=== PATIENT | female | born 1980 | race Caucasian/White ===

== ENCOUNTER 2020-05-10 10:00 | Emergency (ER) | payer OTHER, SELFPAY ==
--- NOTE | ~2020-05-10 | XR_ITS ---
EXAMINATION: XR ankle LT min 3V DATE: 05/10/2020 10:23 INDICATION: Anterolateral left ankle pain TECHNIQUE: Anteroposterior, oblique, mortise, and lateral views of the left ankle were obtained. COMPARISON: None. FINDINGS: . Alignment is normal. No fracture. Joint spaces are well maintained. No ankle joint effusion. The soft tissues are unremarkable. IMPRESSION: 1. . Negative left ankle radiographs. Reviewed, dictated and finalized at location A.
[2020-05-10 10:07] VITALS: BP 111/60; PULSE 61; RESP 18; TEMP 36.9; O2SAT 100
--- NOTE | 2020-05-10 10:16 | ED.LOWEXIN ---
HPI - Extremity Injury (Lower) General Chief Complaint: Extremity Injury, Lower Stated Complaint: left ankle injured Time Seen by Provider: 05/10/20 10:18 Source: patient and RN notes reviewed Mode of arrival: ambulatory Limitations: no limitations History of Present Illness HPI Narrative: This is a 39 years old female presented office for evaluation of left ankle injury since yesterday. Stated, her ankle got pinned between trailer truck. Complained of immediate pain and numbness in her toes however numbness has improved since this morning. Pain is worse with weight bearing. She has been elevated, ice and use an ankle brace since the injury. Admits to history of sprain her ankle very badly between 2077-3307 during training where she has to wear brace for 6months. Denies any other injury. Related Data Home Medications Medication Instructions Recorded Confirmed No Home Medications 05/10/20 05/10/20 Allergies Allergy/AdvReac Type Severity Reaction Status Date / Time cefdinir Allergy Intermediate Swelling Verified 05/10/20 10:14 Penicillins Allergy Intermediate Swelling Verified 05/10/20 10:14 vancomycin Allergy Intermediate Rash Verified 05/10/20 10:14 metronidazole AdvReac Intermediate Nausea and Verified 05/10/20 10:14 Vomiting contrast mri dye Allergy Intermediate Rash Uncoded 05/10/20 10:14 Review of Systems Review of Systems: Narrative: CONSTITUTIONAL: Denies feeling ill CARDIOVASCULAR: Denies chest pain, palpitation RESPIRATORY: Denies dyspnea, cough GASTROINTESTINAL: Denies abdominal pain, nausea, vomiting SKIN: Denies rash MUSCULOSKELETAL:Reports left ankle pain, swelling NEUROLOGIC: Denies lightheaded All other systems reviewed are negative, except as documented in HPI. [facility] Past Medical History Medical History Bronchitis History of facial fracture Migraines Seasonal allergies Sinusitis Surgical History Surgical History H/O arthroscopy of left knee H/O sinus surgery History of carpal tunnel release History of laparoscopy Social History Social History Smoking status: Never smoker Gender identity (if verbalized by the patient): Female Comments At time of signature, I agree with nursing past medical, surgical, social and family history. There is no relevant family history pertinent to the presenting complaint. Exam Narrative: Exam Narrative: GENERAL: This is a well-nourished, well-developed patient, in no apparent distress. CARDIOVASCULAR: Regular rate and rhythm without murmurs, gallops, or rubs. RESPIRATORY: Clear to auscultation. Breath sounds equal bilaterally. No wheezes, rales, or rhonchi. GASTROINTESTINAL: Abdomen soft, non-tender, nondistended. Bowel sounds are active. No hepato-splenomegaly, or palpable masses. No guarding. SKIN: warm, intact with no suspicious lesions or rash, good texture and turgor. NEURO: awake, alert, and oriented to person, place and time. There were no obvious focal neurologic abnormalities. EXTREMITIES: The ankle is swollen and tender over the lateral aspect but the skin is intact and there is no ligamentous instability. There is no deformity. The foot and toes are warm and well-perfused. Sensation to pain and light touch is intact. Course Vital Signs Vital signs: Vital Signs Temperature 98.5 F 05/10/20 10:07 Pulse Rate 61 05/10/20 10:07 Respiratory Rate 18 05/10/20 10:07 Blood Pressure 111/60 05/10/20 10:07 Pulse Oximetry 100 05/10/20 10:07 Temperature 98.5 F 05/10/20 10:07 Pulse Rate 61 05/10/20 10:07 Respiratory Rate 18 05/10/20 10:07 Blood Pressure 111/60 05/10/20 10:07 Pulse Oximetry 100 05/10/20 10:07 MDM - Extremity Injury (Lower) MDM Narrative Medical decision making narrative: Discharge instructions reviewed with patient, as
== END 2020-05-10 10:43 | disposition home or self-care (01) ==
PROVIDERS: Emergency Provider Nurse Practitioner; PCP Internal Medicine
DX: S93.402A Sprain of unspecified ligament of left ankle, initial encounter (principal); W23.0XXA Caught, crushed, jammed, or pinched between moving objects, initial encounter
CPT/HCPCS: 73610; 99213; G0463

== ENCOUNTER 2020-07-23 07:34 | Outpatient (CLI) | payer OTHER, SELFPAY ==
--- NOTE | ~2020-07-23 | XR_ITS ---
XR ankle LT min 3V DATE: 07/23/2020 07:55 INDICATION: Left ankle and foot pain TECHNIQUE: 3 weightbearing views of left ankle COMPARISON: None FINDINGS: No fracture or dislocation of the ankle or disruption of the ankle mortise is detected. No periosteal reaction or bone destruction. IMPRESSION: Negative left ankle Reviewed, dictated and finalized at location A. IMPRESSION: Negative left ankle
== END 2020-07-23 07:35 | disposition home or self-care (01) ==
LOC: CHSIMG 07:37
PROVIDERS: PCP Internal Medicine; Visit Provider Orthopaedic Surgery
DX: M25.572 Pain in left ankle and joints of left foot (principal)
CPT/HCPCS: 73610

== ENCOUNTER 2021-06-21 08:03 | Emergency (ER) | payer OTHER, SELFPAY ==
[2021-06-21 08:09] VITALS: BP 121/83; PULSE 60; RESP 18; TEMP 37.8; O2SAT 100
--- NOTE | 2021-06-21 08:17 | ED.WOUNDLAC ---
HPI - Wound/Laceration General Chief Complaint: Skin/Abscess/Foreign Body Stated Complaint: right hand finger infection Time Seen by Provider: 06/21/21 08:18 Source: patient Mode of arrival: ambulatory History of Present Illness HPI narrative: PATIENT PRESENTS WITH REDNESS AND TENDERNESS TO INCISION SITE TO RIGHT HAND. PATIENT HAS HAD MULTIPLE SURGERIES TO HAND. THE LAST SURGERY WAS IN DECEMBER. PATIENT STATES SHE HAD A RECENT SURGERY TO RIGHT MIDDLE FINGER AND IS CURRENTLY IN PHYSICAL THERAPY FOR HER HAND. PATIENT STATES SHE NOTICE THE REDNESS 4 DAYS AGO AND IT HAS GOTTEN WORSE OVER THE LAST FEW DAYS. NO DRAINAGE. PATIENT HAS ATTEMPTED TO CONTACT HER SURGEON AND IS AWAITING A RETURN CALL FROM HIS OFFICE. PATIENT PRESENTS TO [facility] FOR AN ANTIBIOTIC. Related Data Home Medications Medication Instructions Recorded Confirmed cetirizine 10 mg tablet 10 mg PO DAILY 07/23/20 06/21/21 cholecalciferol (vitamin D3) 25 25 mcg PO DAILY 07/23/20 06/21/21 mcg (1,000 unit) capsule topiramate 25 mg tablet 25 mg PO DAILY 07/23/20 06/21/21 verapamil 40 mg tablet 40 mg PO DAILY 07/23/20 06/21/21 vit A 7,160 unit-vit C 113 mg-vit tablet PO DAILY tablet 07/23/20 E 100 esdk-[id number]-wynrsx tablet hydrocodone-acetaminophen 06/21/21 06/21/21 ibuprofen 800 mg PO TID 06/21/21 06/21/21 Allergies Allergy/AdvReac Type Severity Reaction Status Date / Time cefdinir Allergy Intermediate Swelling Verified 06/21/21 08:20 Penicillins Allergy Intermediate Swelling Verified 06/21/21 08:20 vancomycin Allergy Intermediate Rash Verified 06/21/21 08:20 gadobenic acid Allergy Rash Verified 06/21/21 08:21 [From contrast - MRI] metronidazole AdvReac Intermediate Nausea and Verified 06/21/21 08:20 Vomiting Review of Systems Review of Systems: CONSTITUTIONAL: Denies fever, chills, or sweats. EYES: Denies visual changes, redness, or discharge. ENT: Denies rhinorrhea, congestion, sore throat, or otalgia. CARDIOVASCULAR: Denies chest pain, palpitations, or edema. RESPIRATORY: Denies cough or dyspnea. GASTROINTESTINAL: Denies abdominal pain, nausea, vomiting, or diarrhea. GENITOURINARY: Denies dysuria or hematuria. SKIN: Denies rash or itching. MUSCULOSKELETAL: Denies back pain, joint pain, or myalgia. NEUROLOGIC: Denies headache, numbness, or weakness. PSYCHIATRIC: Denies anxiety or depression. [facility] Past Medical History Medical History (Updated 06/21/21 @ 08:29 by JAZZY Perez) Bleeding nose Bronchitis Contusion of ankle, left Disorder of superficial peroneal nerve Dizziness History of facial fracture Migraines Seasonal allergies Sinusitis Sleep apnea Vision abnormalities Surgical History Surgical History (Updated 07/24/20 @ 08:24 by Liseth Cowan, RT(R)) H/O arthroscopy of left knee H/O sinus surgery History of carpal tunnel release History of hip surgery labrum repair History of laparoscopy History of rhinoplasty History of wisdom tooth extraction Family History Family History (Updated 07/24/20 @ 08:25 by Liseth Cowan RT(R)) Other Arthritis Diabetes mellitus Malignant neoplasm Social History Social History Smoking status: Never smoker Gender identity (if verbalized by the patient): Female Comments At time of signature, agree with nursing past medical, surgical, social and family history. There is no relevant family history pertinent to the presenting complaint Critical dx considered and discussed with pt. Educated patient on red flag s/s and to go to ED if s/s occur. Discussed with pt when to return to [facility] or primary care provider. Pt gave verbal undertstanding, all questions were answered, and pt was agreeable to plan Exam Narrative: GENERAL: Well-appearing, well-nourished, and in no acute distress. HEAD: Normocephalic, atraumatic. EYES: PERRLA and EOMI. ENT: Nares clear, no rhinorrhea or epistaxis. Mucous me
== END 2021-06-21 08:36 | disposition home or self-care (01) ==
PROVIDERS: Emergency Provider Nurse Practitioner Family
DX: T81.41XA Infection following a procedure, superficial incisional surgical site, initial encounter (principal); L03.011 Cellulitis of right finger; G47.30 Sleep apnea, unspecified
CPT/HCPCS: 99213; G0463

== ENCOUNTER 2021-08-09 01:42 | Day surgery (SDC) | payer OTHER, SELFPAY ==
[2021-08-01 08:35] VITALS: BMI 25.4
[2021-08-09] VITALS (9 sets, daily range): BP systolic 103–121; BP diastolic 67–76; PULSE 49–83; RESP 12–20; TEMP 36.1–36.6; O2SAT 97–100
--- NOTE | 2021-08-09 07:33 | WPDHPUPDATE1 ---
History and Physical Update Update Date/Time: 08/09/21 07:33 History and Physical has been reviewed, including an updated exam of the patient. There are NO changes in the patient's condition. Risks, benefits, and alternatives have been discussed and questions answered. Patient agrees to proceed with procedure.
[2021-08-09] MEDS: ACETAMINOPHEN 500 MG TABLET 1000 MG PO (08:14)
[2021-08-09] MEDS: KETOROLAC 15 MG/ML VIAL (*BKC) IV PUSH (08:14)
--- NOTE | 2021-08-09 08:30 | P.OP_ITS ---
Procedure Note - Detailed Date of Procedure 08/09/21 Pre-op Diagnosis Menorrhagia, Serilization, Vaginal Discharge Post-op Diagnosis same Procedure Performed Laparoscopic bilateral salpingectomy with endometrial ablation with hysteroscopy D&C. Resection/Ablation-Cauterization of Cervical Ectropion Surgeon Micha Potts MD Anesthesia general Indications Menorrhagia, female sterilization, Mucousy vaginal discharge and cervical ectropion. Description of Procedure Patient was taken the operating room. She has prepped draped in the dorsal lithotomy position after induction of general anesthesia. A 5 mm abdominal incision was made in left upper quadrant of the abdomen with scalpel. A 5 mm trocars inserted the intra-abdominal cavity under direct visualization of the scope. Pneumoperitoneum was achieved. A 5 mm periumbilical incision was made using a scalpel on the abdominal scan. A 5 mm trocar was inserted the intra- abdominal cavity under visualization of the scope. A 5 mm incision made left lower quadrant of the abdomen. A 5 mm trocar was inserted the intra-abdominal cavity and direct visualization of the scope. The bilateral fallopian tubes were removed. The paratubal tissue in the area of the uterus was grasped with the LigaSure cautery and transected after being cauterized. The paratubal tissue from the ovary to the uterine cornu was cauterized and transected with LigaSure cautery. This was all done in a bilateral fashion. The tube was transected at the area of the uterine cornua and the tubes was removed through the 5 mm trocar site. The pneumoperitoneum was reduced. The trocars were removed. The skin was closed with subcuticular 4 Monocryl and covered with Dermabond. Our attention was then turned to the endometrial ablation portion of the procedure. A speculum was placed in the vagina. The cervix was grasped with a tenaculum. The cervix was dilated to approximately 8 mm with Johnson dilators. The hysteroscope was inserted. And the below findings were noted. All of the intrauterine surfaces were curettaged with a medium-size curette and the specimens were collected. Measurements of the cervix were taken using the uterine sound and the hysteroscope. The intrauterine cavity measurements were entered into the handpiece. The device was inserted into the intrauterine cavity and the array was expanded. The balloon cuff was inflated. When an adequate seal was formed the safety and energy cycles were initiated and completed. The array was collapsed, the balloon was deflated. The insert was withdrawn. The hysteroscope was reinserted and a well desiccated intrauterine cavity was observed. Excision and cauterization of cervix was performed - large loop electrode was used to excise ectropion. A large concave defect was created in the central portion of the cervix using multiple passes of the loop. The cut surface was then cauterized completely with ball cautery. Monsel was applied. The cervix was injected with lidocaine prior to starting the procedure. The patient was taken recovery room stable condition. Sponge lap and needle counts were correct x2. She tolerated the procedure well. Pathology yes Complications No immediate complications Condition stable Disposition PACU
--- NOTE | 2021-08-09 09:07 | P.PNAN_ITS ---
Anes - Initial Pre Proc Eval Procedure: Operation Date: 08/09/21 09:00 Proposed Procedures p Hysteroscopy with Sarah Endometrial Ablation, Bilateral Laparoscopic Salpingectomy - Micha Potts MD s Cervix Cautery - Micha Potts MD Date/Time: 08/09/21 09:07 Surgeon: Micha Potts MD Pre Op Diagnosis: Menorrhagia, Serilization, Vaginal Discharge Patient Data Age: 40 Gender: F Height: 1.55 m Weight: 64.9 kg Allergies Allergy/AdvReac Type Severity Reaction Status Date / Time cefdinir Allergy Intermediate Swelling Verified 08/09/21 08:17 Penicillins Allergy Intermediate Swelling Verified 08/09/21 08:17 vancomycin Allergy Intermediate Rash Verified 08/09/21 08:17 gadobenic acid Allergy Rash Verified 08/09/21 08:17 [From contrast - MRI] metronidazole AdvReac Intermediate Nausea and Verified 08/09/21 08:17 Vomiting Home Medications Medication Instructions Recorded Confirmed Type cetirizine 10 mg tablet 10 mg PO HS 07/23/20 08/09/21 History cholecalciferol (vitamin D3) 25 25 mcg PO HS 07/23/20 08/09/21 History mcg (1,000 unit) capsule topiramate 25 mg tablet 25 mg PO HS PRN 07/23/20 08/09/21 History verapamil 40 mg tablet 40 mg PO HS PRN 07/23/20 08/09/21 History Patient hx anesthesia problems: post op nausea/vomiting Family hx anesthesia problems: none Results Review: All pre-operative results and documents have been reviewed as p art of the pre-operative evaluation. [facility], [facility] Past Medical History Medical History (Updated 08/09/21 @ 09:08 by Miles Sevilla MD) Bleeding nose Bronchitis Contusion of ankle, left Disorder of superficial peroneal nerve Dizziness History of facial fracture Migraines Seasonal allergies Sinusitis Sleep apnea TIA (transient ischemic attack) Vision abnormalities Surgical History Surgical History H/O arthroscopy of left knee H/O sinus surgery History of carpal tunnel release History of hip surgery labrum repair History of laparoscopy History of rhinoplasty History of wisdom tooth extraction Family History Family History Other Arthritis Diabetes mellitus Malignant neoplasm Social History Social History Smoking status: Never smoker Alcohol intake: never Substance use: never Substance use type: does not use Living arrangements: with family Gender identity (if verbalized by the patient): Female Spiritual care concerns: No Anes - Eval Final PreProcedure Day of Procedure 08/09/21 09:07 Patient weight: overweight Heart: regular rate and rhythm Lungs: clear to auscultation Airway: Mallampati scale class II Neurological: alert and oriented Last oral intake: >/= 8 hours ASA classification: III Emergent: no Anesthetic plan: proceed Anesthesia type and monitoring: general ETT and standard monitoring Results Review: All pre-operative results and documents have been reviewed as part of the pre-operative evaluation. Informed Consent: The patient's anesthetic plan and its attendant risks and benefits were discussed with the patient/family/POA. Questions were solicited and answers provided to the satisfaction of the patient/fami
--- NOTE | 2021-08-09 09:31 | SUR.PREOP ---
patient updated on time delay
[2021-08-09] MEDS: LACTATED RINGERS 1,000 ML 30 ML IV CONT ×2 (09:36→10:54)
[2021-08-09] MEDS: SCOPOLAMINE 1.5 MG PATCH TRANSDERM (09:36)
[2021-08-09] MEDS: FERRIC SUBSULFATE 8 ML SOLUTION WITH APPLICATOR TOPICAL (10:40)
[2021-08-09] MEDS: LIDO 1%/EPINEPHRINE 1:100,000 50 ML VIAL 10 ML INFILTRATE (10:52)
== END 2021-08-09 12:40 | disposition home or self-care (01) ==
PROVIDERS: PCP Internal Medicine; Visit Provider Obstetrics & Gynecology
PROC: 0UDB8ZZ Extraction of Endometrium, Via Natural or Artificial Opening Endoscopic (ICD-10-PCS; CPT 58558; principal; 2021-08-09 09:00)
PROC: 0UBC7ZZ Excision of Cervix, Via Natural or Artificial Opening (ICD-10-PCS; CPT 57522; 2021-08-09 09:00)
DX: Z30.2 Encounter for sterilization (principal); N72 Inflammatory disease of cervix uteri; N88.8 Other specified noninflammatory disorders of cervix uteri; N92.0 Excessive and frequent menstruation with regular cycle; N89.8 Other specified noninflammatory disorders of vagina; G47.30 Sleep apnea, unspecified; Z86.73 Personal history of transient ischemic attack (TIA), and cerebral infarction without residual deficits
CPT/HCPCS: 58563; 58661; 57500; 88302; 88305; 88307; A9270; J1170; J1885; J2250; J3010; J7030; J7120

== ENCOUNTER 2022-03-19 16:07 | Outpatient (CLI) | payer OTHER, SELFPAY ==
--- NOTE | ~2022-03-19 | XR_ITS ---
XR wrist RT min 3V DATE: 03/19/2022 16:40 INDICATION: Bilateral wrist and hand swelling, greater on the right TECHNIQUE: 4 views of right wrist COMPARISON: None FINDINGS: No fracture or dislocation, periosteal reaction or bone destruction, joint space narrowing, erosive change or chondrocalcinosis. IMPRESSION: Negative Reviewed, dictated and finalized at location B. IMPRESSION: Negative
--- NOTE | ~2022-03-19 | XR_ITS ---
XR hand RT min 3V DATE: 03/19/2022 16:41 INDICATION: Bilateral wrist and hand pain TECHNIQUE: 3 views COMPARISON: None FINDINGS: No fracture or dislocation, periosteal reaction or bone destruction, erosive change or robert drocalcinosis. Joint spaces are preserved. IMPRESSION: Negative Reviewed, dictated and finalized at location B. IMPRESSION: Negative
--- NOTE | ~2022-03-19 | XR_ITS ---
XR wrist LT min 3V DATE: 03/19/2022 16:41 INDICATION: Bilateral wrist and hand pain and swelling TECHNIQUE: 4 views COMPARISON: None FINDINGS: No fracture or dislocation, periosteal reaction or bone destruction, erosive change or robert drocalcinosis. Joint spaces are preserved. IMPRESSION: Negative Reviewed, dictated and finalized at location B. IMPRESSION: Negative
--- NOTE | ~2022-03-19 | XR_ITS ---
XR hand LT min 3V DATE: 03/19/2022 16:41 INDICATION: Bilateral wrist and hand pain TECHNIQUE: 3 views COMPARISON: None FINDINGS: No fracture or dislocation, periosteal reaction or bone destruction, erosive change or robert drocalcinosis. IMPRESSION: Negative Reviewed, dictated and finalized at location B. IMPRESSION: Negative
[2022-03-19 16:26] LABS: Basophils Absolute Auto 0.04 K/mm3 (0.00-0.10); Basophils Percent Auto 0.6 % (0.0-1.0); Eosinophils Absolute Auto 0.16 K/mm3 (0.02-0.50); Eosinophils Percent Auto 2.6 % (1.0-6.0); Hematocrit 37.6 % (35.0-49.0); Hemoglobin 12.7 g/dL (12.0-15.0); Immature Granulocyte Absolute 0.02 K/mm3 (0.00-0.00); Immature Granulocyte Percent A 0.3 % (0.0-0.0); Lymphocytes Absolute Auto 2.05 K/mm3 (1.10-4.50); Lymphocytes Percent Auto 33.3 % (18.0-42.0); Mean Corpuscular HGB Conc 33.8 g/dL (32.0-36.0); Mean Corpuscular Hemoglobin 31.5 pg (27.0-31.0); Mean Corpuscular Volume 93.3 fL (78.0-102.0); Mean Platelet Volume 10.9 fl (9.2-11.8); Monocytes Absolute Auto 0.71 K/mm3 (0.10-0.90); Monocytes Percent Auto 11.5 % (2.0-11.0); Neutrophils Absolute Auto 3.2 K/mm3 (1.7-7.2); Neutrophils Percent Auto 51.7 % (50.0-70.0); Platelet Count Result 280 K/mm3 (150-420); Red Blood Count 4.03 M/mm3 (4.20-5.40); Red Cell Distribution Width 12.4 % (11.6-14.4); White Blood Count 6.2 K/mm3 (4.8-10.8)
[2022-03-19 16:38] LABS: Rheumatoid Factor Screen Negative (Negative)
[2022-03-19 17:02] LABS: Alanine Aminotransferase 23 U/L (14-59); Albumin Level 3.6 g/dL (3.4-5.0); Alkaline Phosphatase 53 U/L (46-116); Anion Gap 7 mmol/L (8-16); Aspartate Amino Transferase 18 U/L (15-37); Bilirubin,Total 0.3 mg/dL (0.00-1.00); Blood Urea Nitrogen 11 mg/dL (7-18); Calcium 8.4 mg/dL (8.5-10.1); Carbon Dioxide 25 mmol/L (21-32); Chloride 106 mmol/L (98-108); Estimated Glomerular Filt Rate > 60; Free T3 2.36 pg/mL (2.18-3.98); Free T4 Free Thyroxine 0.93 ng/dL (0.76-1.46); Glucose 76 mg/dL (70-99); Osmolality Calculated 284 mOsm/kg (285-295); Potassium 3.7 mmol/L (3.5-5.1); Sodium 138 mmol/L (136-145); Thyroid Stimulating Hormone 0.89 uIU/mL (0.36-3.74); Total Protein 6.6 g/dL (6.4-8.2); Vitamin B12 519 pg/mL (193-986)
[2022-03-19 17:08] LABS: CRP < 0.2 mg/dL (0.0-0.9)
[2022-03-19 17:21] LABS: Erythrocyte Sedimentation Rate 5 mm/hr (0-15)
[2022-03-24 07:41] LABS: Lyme Disease Ab (IgM), Blot Negative (Negative); Lyme Disease Ab(IgG), Blot Negative (Negative)
[2022-03-24 12:33] LABS: Anti Cyclic Citrullinated Pept <16 Units (<20)
== END 2022-03-19 16:08 | disposition home or self-care (01) ==
LOC: CHSLAB 16:08
PROVIDERS: PCP Internal Medicine; Visit Provider Internal Medicine
DX: M25.532 Pain in left wrist (principal); M25.531 Pain in right wrist; M79.642 Pain in left hand; M79.641 Pain in right hand; M79.89 Other specified soft tissue disorders; G62.9 Polyneuropathy, unspecified
CPT/HCPCS: 36415; 73110; 73130; 80053; 82607; 84439; 84443; 84481; 85025; 85652; 86038; 86140; 86200; 86430; 86617

== ENCOUNTER 2022-05-06 14:25 | Outpatient (CLI) | payer OTHER, SELFPAY ==
[2022-05-06 14:35] LABS: Hematocrit 40.7 % (35.0-49.0); Hemoglobin 13.4 g/dL (12.0-15.0); Mean Corpuscular HGB Conc 32.9 g/dL (32.0-36.0); Mean Corpuscular Hemoglobin 30.6 pg (27.0-31.0); Mean Corpuscular Volume 92.9 fL (78.0-102.0); Mean Platelet Volume 10.6 fl (9.2-11.8); Platelet Count Result 258 K/mm3 (150-420); Red Blood Count 4.38 M/mm3 (4.20-5.40); Red Cell Distribution Width 12.5 % (11.6-14.4); White Blood Count 11.7 K/mm3 (4.8-10.8)
[2022-05-06 15:04] LABS: Alanine Aminotransferase 20 U/L (14-59); Albumin Level 3.4 g/dL (3.4-5.0); Alkaline Phosphatase 73 U/L (46-116); Anion Gap 7 mmol/L (8-16); Aspartate Amino Transferase 15 U/L (15-37); Bilirubin,Total 0.4 mg/dL (0.00-1.00); Blood Urea Nitrogen 10 mg/dL (7-18); Calcium 8.4 mg/dL (8.5-10.1); Carbon Dioxide 29 mmol/L (21-32); Chloride 106 mmol/L (98-108); Estimated Glomerular Filt Rate > 60; Glucose 91 mg/dL (70-99); Osmolality Calculated 293 mOsm/kg (285-295); Potassium 3.8 mmol/L (3.5-5.1); Sodium 142 mmol/L (136-145); Total Protein 6.3 g/dL (6.4-8.2)
[2022-05-06 15:15] LABS: Total Cells Counted 100
[2022-05-06 15:16] LABS: Band Neutrophils Percent 0 % (0-6); Basophils Percent Manual 0 % (0-1); Eosinophils Absolute Manual 5.26 K/mm3 (0.02-0.5); Eosinophils Percent Manual 45 % (1-6); Lymphocytes Absolute Manual 2.92 K/mm3 (1.1-4.5); Lymphocytes Percent Manual 25 % (18-44); Monocytes Absolute Manual 0.81 K/mm3 (0.1-0.90); Monocytes Percent Manual 7 % (3-9); Neutrophils Absolute Manual 2.69 K/mm3 (1.7-7.2); Neutrophils Percent Manual 23 % (46-73); Platelet Estimate Adequate (Adequate)
== END 2022-05-06 14:26 | disposition home or self-care (01) ==
PROVIDERS: PCP Internal Medicine; Visit Provider Internal Medicine
DX: R19.7 Diarrhea, unspecified (principal)
CPT/HCPCS: 36415; 80053; 85025; 86609; 87045; 87177; 87209; 87324; 87427

== ENCOUNTER 2022-06-11 05:51 | Day surgery (SDC) | payer OTHER, SELFPAY ==
[2022-05-23 08:54] VITALS: BMI 27.1
--- NOTE | 2022-06-10 14:06 | WPDANESEPPF ---
Anes - Initial Pre Proc Eval Procedure: Operation Date: 06/11/22 07:30 Proposed Procedures p Esophagogastroduodenoscopy - Fred Macias DO s Diagnostic Colonoscopy - Fred Macias DO Date/Time: 06/10/22 14:06 Surgeon: Fred Macias DO Pre Op Diagnosis: Melena, Epigastric Pain and Colitis Patient Data Age: 41 Gender: F Height: 1.55 m Weight: 65 kg Allergies Allergy/AdvReac Type Severity Reaction Status Date / Time cefdinir Allergy Intermediate Swelling Verified 05/23/22 08:52 Penicillins Allergy Intermediate Swelling Verified 05/23/22 08:52 vancomycin Allergy Intermediate Rash Verified 05/23/22 08:52 gadobenic acid Allergy Unresponsiv Verified 06/11/22 06:38 [From contrast - MRI] e shellfish derived Allergy Unresponsiv Verified 06/11/22 06:38 e metronidazole AdvReac Intermediate Nausea and Verified 05/23/22 08:52 Vomiting Home Medications Medication Instructions Recorded Confirmed Type cetirizine 10 mg tablet (Zyrtec) 10 mg PO HS 07/23/20 06/11/22 History cholecalciferol (vitamin D3) 25 25 mcg PO HS 07/23/20 06/11/22 History mcg (1,000 unit) capsule topiramate 25 mg tablet (Topamax) 25 mg PO HS PRN Migraine Headache 07/23/20 06/11/22 History verapamil 40 mg tablet 40 mg PO HS PRN Migraine Headache 07/23/20 06/11/22 History pantoprazole 20 mg tablet,delayed 20 mg PO QAM 05/23/22 06/11/22 History release Patient hx anesthesia problems: none Family hx anesthesia problems: none Results Review: All pre-operative results and documents have been reviewed as part of the pre-operative evaluation. [facility] Past Medical History Medical History (System 05/22/22 @ 07:42 by Lucille Casas) Bleeding nose Bronchitis Contusion of ankle, left Disorder of superficial peroneal nerve Dizziness History of facial fracture Migraines Seasonal allergies Sinusitis Sleep apnea TIA (transient ischemic attack) Vision abnormalities Surgical History Surgical History H/O arthroscopy of left knee H/O sinus surgery History of carpal tunnel release History of hip surgery labrum repair History of laparoscopy History of rhinoplasty History of wisdom tooth extraction Family History Family History Other Arthritis Diabetes mellitus Malignant neoplasm Social History Social History (System 05/22/22 @ 07:42 by Lucille Casas) Smoking status: Never smoker Alcohol intake: never Substance use: never Substance use type: does not use Living arrangements: with family Gender identity (if verbalized by the patient): Female Spiritual care concerns: No Anes - Eval Final PreProcedure Day of Procedure 06/10/22 14:06 Patient weight: overweight Heart: regular rate and rhythm Lungs: clear to auscultation Airway: Mallampati scale class II Neurological: alert and oriented Last oral intake: >/= 8 hours ASA classification: III Emergent: no Anesthetic plan: proceed Anesthesia type and monitoring: general GIVS and standard monitoring Results Review: All pre-operative results and documents have been reviewed as part of the pre-operative evaluation. Informed Consent: The patient's anesthetic plan and its attendant risks and benefits were discussed with the patient/family/POA. Questions were solicited and answers provided to the satisfaction of the patient/family/POA.
[2022-06-11 06:19] VITALS: BMI 26.6
[2022-06-11 06:27] VITALS: BP 117/90; PULSE 60; RESP 14; TEMP 36.8; O2SAT 100
[2022-06-11] MEDS: LACTATED RINGERS 500 ML 30 ML IV CONT (07:02)
--- NOTE | 2022-06-11 07:14 | PM.IMHP ---
H&P: HPI History of Present Illness Date/Time: 06/11/22 07:14 Chief Complaint: Epigastric pain, colitis Narrative: 41 yo woman presented with epigastric pain for the past month and occasional diarrhea. She had an episode of severe diarrhea and has had issues off and on since. She also notices hematochezia at times. She has acid reflux at times. She has never had a colonoscopy or EGD before. Review of Systems Review of Systems: All systems reviewed & are unremarkable except as noted in HPI and below Constitutional: Constitutional: Denies chills, Denies fever(s), Denies headache(s) and Denies weight loss Eyes: Eyes: Denies change in vision ENT: Denies dizziness, Denies headache(s), Denies neck mass and Denies throat swelling Cardiovascular: Cardiovascular: Denies chest pain, Denies lightheadedness and Denies dyspnea Respiratory: Respiratory: Denies cough, Denies dyspnea and Denies wheezing Gastrointestinal: Gastrointestinal: Denies abdominal pain, Reports change in bowel habits, Reports heartburn, Denies nausea and Denies vomiting Genitourinary: Genitourinary: Denies hematuria and Denies dysuria Musculoskeletal: Musculoskeletal: Reports as per HPI Integumentary/Breasts: Skin/Breast: Reports as per HPI Neurologic: Denies dizziness and Denies headache(s) Allergic/Immunologic: Allergic/Immunologic: Denies throat swelling and Denies wheezing PMFSH Past Medical History Medical History Bleeding nose Bronchitis Contusion of ankle, left Disorder of superficial peroneal nerve Dizziness History of facial fracture Migraines Seasonal allergies Sinusitis Sleep apnea TIA (transient ischemic attack) Vision abnormalities Surgical History Surgical History H/O arthroscopy of left knee H/O sinus surgery History of carpal tunnel release History of hip surgery labrum repair History of laparoscopy History of rhinoplasty History of wisdom tooth extraction Family History Family History Other Arthritis Diabetes mellitus Malignant neoplasm Social History Social History Smoking status: Never smoker Alcohol intake: never Substance use: never Substance use type: does not use Living arrangements: with family Gender identity (if verbalized by the patient): Female Spiritual care concerns: No Meds Home Medications and Allergies Home Medications Medication Instructions Recorded Confirmed Type cetirizine 10 mg tablet (Zyrtec) 10 mg PO HS 07/23/20 06/11/22 History cholecalciferol (vitamin D3) 25 25 mcg PO HS 07/23/20 06/11/22 History mcg (1,000 unit) capsule topiramate 25 mg tablet (Topamax) 25 mg PO HS PRN Migraine Headache 07/23/20 06/11/22 History verapamil 40 mg tablet 40 mg PO HS PRN Migraine Headache 07/23/20 06/11/22 History pantoprazole 20 mg tablet,delayed 20 mg PO QAM 05/23/22 06/11/22 History release Allergies Allergy/AdvReac Type Severity Reaction Status Date / Time cefdinir Allergy Intermediate Swelling Verified 05/23/22 08:52 Penicillins Allergy Intermediate Swelling Verified 05/23/22 08:52 vancomycin Allergy Intermediate Rash Verified 05/23/22 08:52 gadobenic acid Allergy Unresponsiv Verified 06/11/22 06:38 [From contrast - MRI] e shellfish derived Allergy Unresponsiv Verified 06/11/22 06:38 e metronidazole AdvReac Intermediate Nausea and Verified 05/23/22 08:52 Vomiting Vital Signs Vital Signs - 24 hr 06/11/22 06:27 Temperature 36.8 C Pulse Rate 60 Respiratory Rate 14 Blood Pressure 117/90 Pulse Oximetry 100 Oxygen Delivery Room Air Exam Const: General: no acute distress and alert Orientation/consciousness: patient oriented x3 HENMT: Head: normocephalic and atraumatic Ears: hearing grossly normal bilaterall
[2022-06-11 08:04] VITALS: BP 101/71; PULSE 57; RESP 16; O2SAT 98
[2022-06-11 08:14] VITALS: BP 96/69; PULSE 53; RESP 14; O2SAT 98
[2022-06-11 08:24] VITALS: BP 102/72; PULSE 50; RESP 16; O2SAT 100
--- NOTE | 2022-06-11 09:14 | WPDANESPN ---
Anes - Prog Note Post-Op Date/Time: 06/11/22 09:14 Cardiovascular status: normal Respiratory status: normal Airway patency: baseline Mental status: baseline Post-Op hydration status: normal Vital Signs: Last Vital Signs Temp 36.8 C 06/11/22 06:27 Pulse 50 L 06/11/22 08:24 Resp 16 06/11/22 08:24 BP 102/72 06/11/22 08:24 Pulse Ox 100 06/11/22 08:24 O2 Del Method Room Air 06/11/22 08:24 Pain Score (VAS): 0 I/O: Intake & Output 06/10/22 06/11/22 06/11/22 23:59 07:59 15:59 Intake Total 600 Balance 600 Post-procedural complaints: none Patient Feedback: Patient satisfied with anesthetic care. Other Findings: Patient vital signs back to baseline. Patient denies nausea and vomiting. Patient's pain under control. Patient OK for discharge.
== END 2022-06-11 08:48 | disposition home or self-care (01) ==
PROVIDERS: PCP Internal Medicine; Visit Provider Surgery
PROC: 0DJ08ZZ Inspection of Upper Intestinal Tract, Via Natural or Artificial Opening Endoscopic (ICD-10-PCS; CPT 43235; principal; 2022-06-11 07:30)
PROC: 0DJD8ZZ Inspection of Lower Intestinal Tract, Via Natural or Artificial Opening Endoscopic (ICD-10-PCS; CPT 45378; 2022-06-11 07:30)
DX: R10.13 Epigastric pain (principal); K52.9 Noninfective gastroenteritis and colitis, unspecified
CPT/HCPCS: 45380; 43239

== ENCOUNTER 2022-06-11 15:19 | Outpatient (NON) | payer OTHER, SELFPAY | END 2022-06-11 15:20 | disposition home or self-care (01) | PROVIDERS: PCP Internal Medicine; Visit Provider Surgery | DX: R10.13 Epigastric pain (principal); K52.9 Noninfective gastroenteritis and colitis, unspecified | CPT/HCPCS: 88305 ==

== ENCOUNTER 2022-08-06 14:01 | Outpatient (CLI) | payer OTHER, SELFPAY ==
--- NOTE | ~2022-08-06 | CT_ITS ---
EXAMINATION: CT abdomen pelvis wo con DATE: 08/06/2022 16:08 INDICATION: Left lower quadrant pain TECHNIQUE: Computed tomography (CT) of the abdomen and pelvis was performed without intravenous contr ast. The dose-length product (DLP) was 368.55 mGy-cm. Automated exposure control and iterative recons truction technique were employed. COMPARISON: None FINDINGS: Minimal dependent atelectasis is present in the lung bases. The heart size is normal. The l iver, spleen, pancreas, gallbladder, and adrenal glands are normal. The kidneys are unremarkable. No pathologically enlarged abdominal or pelvic lymph nodes are identified. There is no free intraperiton eal gas or evidence of bowel obstruction. The appendix is normal. IMPRESSION: 1. No CT correlate for the patient's symptoms. Reviewed, dictated and finalized at location A.
[2022-08-06 14:16] LABS: Appearance Urine Clear (Clear); Basophils Absolute Auto 0.02 K/mm3 (0.00-0.10); Basophils Percent Auto 0.3 % (0.0-1.0); Bilirubin Urine Negative (Negative); Blood Urine Negative (Negative); Eosinophils Absolute Auto 0.34 K/mm3 (0.02-0.50); Glucose Urine UA Negative (Negative); Hematocrit 38.3 % (35.0-49.0); Hemoglobin 12.8 g/dL (12.0-15.0); Immature Granulocyte Absolute 0.02 K/mm3 (0.00-0.00); Immature Granulocyte Percent A 0.3 % (0.0-0.0); Ketones Urine Negative (Negative); Leukocyte Esterase Ur Negative LEU/UL (Negative); Lymphocytes Absolute Auto 1.97 K/mm3 (1.10-4.50); Lymphocytes Percent Auto 29.2 % (18.0-42.0); Mean Corpuscular HGB Conc 33.4 g/dL (32.0-36.0); Mean Corpuscular Hemoglobin 30.7 pg (27.0-31.0); Mean Corpuscular Volume 91.8 fL (78.0-102.0); Mean Platelet Volume 10.6 fl (9.2-11.8); Monocytes Absolute Auto 0.51 K/mm3 (0.10-0.90); Monocytes Percent Auto 7.6 % (2.0-11.0); Neutrophils Absolute Auto 3.9 K/mm3 (1.7-7.2); Neutrophils Percent Auto 57.6 % (50.0-70.0); Nitrate Urine Negative (Negative); Platelet Count Result 263 K/mm3 (150-420); Protein Urine Negative (Negative); Red Blood Count 4.17 M/mm3 (4.20-5.40); Red Cell Distribution Width 12.1 % (11.6-14.4); Specific Grav Ur 1.025 (1.010-1.020); Urobilinogen Urine 0.2 mg/dL (0.2-1.0); White Blood Count 6.8 K/mm3 (4.8-10.8); pH Urine 5.5 (5.0-8.0)
[2022-08-06 14:26] LABS: Add Urine Microscopic? NO; Color Urine Light Yellow (Yellow)
[2022-08-06 14:36] LABS: Alanine Aminotransferase 22 U/L (14-59); Albumin Level 3.7 g/dL (3.4-5.0); Alkaline Phosphatase 55 U/L (46-116); Anion Gap 5 mmol/L (8-16); Aspartate Amino Transferase 15 U/L (15-37); Bilirubin,Total 0.5 mg/dL (0.00-1.00); Blood Urea Nitrogen 10 mg/dL (7-18); Calcium 8.6 mg/dL (8.5-10.1); Carbon Dioxide 31 mmol/L (21-32); Chloride 107 mmol/L (98-108); Estimated Glomerular Filt Rate > 60; Glucose 94 mg/dL (70-99); Osmolality Calculated 295 mOsm/kg (285-295); Potassium 4.4 mmol/L (3.5-5.1); Sodium 143 mmol/L (136-145); Total Protein 6.8 g/dL (6.4-8.2)
== END 2022-08-06 14:02 | disposition home or self-care (01) ==
PROVIDERS: PCP Internal Medicine; Visit Provider Internal Medicine
DX: R10.32 Left lower quadrant pain (principal); R19.7 Diarrhea, unspecified
CPT/HCPCS: 36415; 74176; 80053; 81003; 85025

== ENCOUNTER 2022-08-07 12:20 | Outpatient (CLI) | payer OTHER, SELFPAY | END 2022-08-07 12:21 | disposition home or self-care (01) | LOC: CHSLAB 12:22 | PROVIDERS: PCP Internal Medicine; Visit Provider Internal Medicine | DX: R19.7 Diarrhea, unspecified (principal) | CPT/HCPCS: 87045; 87324; 87427 ==

== ENCOUNTER 2023-04-30 07:10 | Outpatient (CLI) | payer OTHER, SELFPAY ==
--- NOTE | ~2023-04-30 | MM_ITS ---
EXAMINATION: MM screening evy BI w jose eduardo HISTORY: Screening mammogram TECHNIQUE: Craniocaudal and mediolateral oblique 3-D tomosynthesis images were obtained and synthetic 2-D images were generated. CAD analysis was submitted and interpreted. COMPARISON: No prior mammogram is available for comparison at this institution. BREAST PARENCHYMAL COMPOSITION: The breasts are extremely dense, which lowers the sensitivity of mamm ography. FINDINGS: There is no evidence of suspicious mass, calcification, or architectural distortion to sugg est malignancy in either breast. There has been no suspicious interval change. IMPRESSION: 1. No mammographic evidence of malignancy. 2. Recommend routine screening mammography in one year. 3. Supplemental ultrasound screening may be of benefit in the setting of very dense fibroglandular [place]. BI-RADS Category 1: Negative Reviewed, dictated and finalized at location A. IMPRESSION: 1. No mammographic evidence of malignancy. 2. Recommend routine screening mammography in one year. 3. Supplemental ultrasound screening may be of benefit in the setting of very d ense fibroglandular stroma. BI-RADS Category 1: Negative
== END 2023-04-30 07:11 | disposition home or self-care (01) ==
LOC: CHSIMG 07:12
PROVIDERS: PCP Internal Medicine; Visit Provider Nurse Practitioner Family
DX: Z12.31 Encounter for screening mammogram for malignant neoplasm of breast (principal)
CPT/HCPCS: 77063; 77067

== ENCOUNTER 2024-01-22 07:16 | Outpatient (CLI) | payer OTHER, SELFPAY ==
--- NOTE | ~2024-01-22 | US_ITS ---
NAME: hCen Coats DATE OF : 84 EXAMINATION: US PELVIC COMPLETE W TV DATE: 01/22/2024 at 7:31 AM INDICATION: Pelvic pain. TECHNIQUE: Multiple transabdominal and transvaginal sonographic images of the pelvis were obtained. COMPARISON: CT abdomen and pelvis 08/06/2022 FINDINGS: TRANSABDOMINAL ULTRASOUND: The uterus measures 6.3 x 4.2 x 4.1 cm. There is no free fluid in the pelvis. TRANSVAGINAL ULTRASOUND: The endometrial complex measures 7 mm in thickness. The right ovary measures 2.9 x 3.3 x 2.2 cm. The left ovary measures 2.3 x 2.1 x 2.2 cm. There is normal vascular flow in the ovaries. IMPRESSION: 1. Normal pelvis. Reviewed, dictated and finalized at location A. IMPRESSION: 1. Normal pelvis.
== END 2024-01-22 07:17 | disposition home or self-care (01) ==
PROVIDERS: PCP Internal Medicine
DX: R10.2 Pelvic and perineal pain (principal)
CPT/HCPCS: 76830; 76856

== ENCOUNTER 2025-03-24 07:23 | Outpatient (CLI) | payer OTHER, SELFPAY ==
--- OUTSIDE RECORDS SUMMARY | 2025-03-24 07:26 | XMS_ITS | Referral Summary ---
Author Organization [facility] Address [address] [place] [address] Care Team Providers Care Grape Grower Name Role Phone Jonathan Alejandra MD Primary Care Provider [phone] Encounters Date Type Department Care Team Description 03/10/2025 8:40 AM CDT Therapy [facility] Otolaryngology [address] [place] [address] Advanced Medicine [address]th [place] [address] [place] [address] Calri Rivera SLP Lesion of vocal fold (Primary Dx); Dysphonia 03/10/2025 8:40 AM CDT Office Visit [facility] - [facility] ENT [address] [facility] Advanced [facility] 11th [place] [address] [place] [address] Brian Zamora MD Dysphonia 02/10/2025 [address] [facility] - [facility] ENT [address] [facility] 11th [place] [address] [place] [address] Valentina Reyes MS from Last 3 Months Allergies Active Allergy Reactions Criticality Noted Date Comments Cefdinir Shortness of breath,Swelling,Anap hylaxis High 07/18/2015 Iodinated Contrast Media Shortness of breath,Other (See comments) High 08/24/2021 blacked out Modafinil Nausea And Vomiting 12/09/2018 Rizatriptan Other (See comments) Low 11/19/2017 Unable to take Shellfish Containing Products Shortness of breath High 08/26/2011 Other reaction(s): Lightheadedness, Nausea, Lightheadedness, Nausea Sumatriptan Other (See comments) Low 11/19/2017 Unable to take Titanium Blisters,Redness High 02/15/2024 Vancomycin Rash Medium Medications topiramate (TOPAMAX) 100 mg tabletIndicatio ns:Migraine Prevention Take 1 tablet (100 mg total) by mouth 2 (two) times a day 8 Active cholecalciferol (VITAMIN D-3) 2,000 unit tabletIndicatio ns:Prevention of Vitamin D Deficiency Take 1 tablet (2,000 Units total) by mouth nightly Active multivitamin capsuleIndicati ons:Vitamin Deficiency Prevention Take 1 capsule by mouth every morning Active vit A/C/E ac/ZnOx/cupric oxide (EYE VITAMIN AND MINERALS ORAL)Indication s:supplement Take 1 tablet by mouth nightly Active cetirizine (ZyrTEC) 10 mg tabletIndicatio ns:Seasonal Allergic Rhinitis Take 1 tablet (10 mg total) by mouth 2 (two) times a day Active naproxen (ALEVE) 220 mg tabletIndicatio ns:Pain Take 1 tablet (220 mg total) by mouth as needed for pain Active fluticasone propionate (FLONASE) 50 mcg/actuation nasal sprayIndication s:Allergic Rhinitis Administer 1 spray into each nostril 2 (two) times a day 1 Active loperamide (IMODIUM) 2 mg capsule Take 1 capsule (2 mg total) by mouth 4 (four) times a day as needed for diarrhea 12 capsule 2 Active verapamil HCl (VERAPAMIL ORAL)Indication s:migraines Take 240 mg by mouth as needed (migraines) Active UNABLE TO FIND Inject 1 each under the skin every 30 (thirty) days Allergy shot Active famotidine (PEPCID) 20 mg tablet 1 tablet (20 mg total) 4 Active fluticasone propion-salmete roL (ADVAIR HFA) 230-21 mcg/actuation inhaler every 12 hours Activ e hydrOXYzine (VISTARIL) 25 mg capsule 1 capsule (25 mg total) PRN 4 Active albuterol 0.63 mg/3 mL nebulizer solution Take 3 mL (0.63 mg total) by nebulization every 6 (six) hours as needed for wheezing Active sulfamethoxazol e-trimethoprim (Bactrim DS) 800-160 mg per tablet Take 1 tablet (160 mg of trimethoprim total) by mouth 2 (two) times a day for 14 days 28 tablet 5 03/24/20 25 Active fluconazole (DIFLUCAN) 100 mg tabletIndicatio ns:Upper Respiratory/MARIO NT Infection Take 1 tablet (100 mg total) by mouth daily for 14 days Take 2 tablets (200 mg total) on the first day. 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 [facility] DME is the [facility]. I have sent an order over for the patient to be supplied with small nasal pillows instead of her current mask which is just a nasal mask. Assessment & Plan (12/22/2023 3:10 PM GAMMA FACILITIES OPERATOR): Due to continued symptoms, the patient will continue with CPAP at 12 cm water pressure. [facility] Assessment & Plan (12/16/2022 3:38 PM GAMMA FACILITIES OPERATOR): Patient continue to wear CPAP at 12 cm water pressure while sleeping. The patient's DME is [facility]. Assessment & Plan (12/17/2021 8:34 AM GAMMA FACILITIES OPERATOR): Patient continue to wear CPAP at 12 cm water pressure while sleeping. The patient's DME is [facility]. Hypersomnia 12/17/2021 Assessment & Plan (12/22/2023 3:10 PM GAMMA FACILITIES OPERATOR): No longer requiring medication Assessment & Plan (12/16/2022 3:38 PM GAMMA FACILITIES OPERATOR): The patient has not needed Nuvigil. The patient states that the B12 and folic acid is helping with her energy level. Assessment & Plan (12/17/2021 8:33 AM GAMMA FACILITIES OPERATOR): Patient continue with Nuvigil 150mg half tablet p.o. Q a.m.. Displaced fracture of distal phalanx of right little finger, initial encounter for closed fracture 12/13/2020 Overview (12/13/2020): Added automatically from request for surgery [id number] Displaced fracture of middle phalanx of right ring finger, initial encounter for closed fracture 12/13/2020 Overview (12/13/2020): Added automatically from request for surgery [id number] Gastroesophageal reflux disease 07/13/2014 Immunizations Immunization Administration Dates Next Due H1N1 All Forms 11/29/2009 HPV, Quadrivalent 08/25/2007,04/20/2007,02/24/20 07 Hep A, Adult 03/26/2002,08/20/2001 Hep B Vaccine 09/29/2014,04/04/2014,03/03/2014 IPV 08/20/2001 Influenza, Quadrivalent, Spl it, Intramuscular 09/01/2010,10/14/2006,09/29/2005 Influenza, Quadrivalent, Spl it, Preservative Free, Intramuscular 08/06/2017 Influenza, Trivalent, IM (MDV) 11/08/2013,2010 Influenza, Trivalent, Preser vative Free, Intramuscular 08/18/2014,10/29/2012 Influenza, Unspecified 08/09/2020,2018,08/09/2018,08/11,07/19/2015,09/10/2014,07/10/2013 ,09/23/2012,08/08/2009,08/03/2008,08/09,12/09/2004,09/14/2003, 2,08/20/2001 Meningococcal Polysaccharide (Menomune) 08/20/2001 Td, adsorbed 04/29/2002 Tdap 10/29/2013,10/25/2013 Typhoid H-P SQ/ID 04/29/2002 Yellow Fever 03/26/2002 Social History Tobacco Use Types Packs/Day Years Used Date Smoking Tobacco: Never Smokeless Tobacco: Never Alcohol Use Standard Drinks/Week Comments No 0 (1 standard drink = 0.6 oz pur e alcohol) AUDIT-C Answer Date Recorded Q1: How often do you have a drink containing alcohol? Never 02/15/2024 Q2: How many drinks containi ng alcohol do you have on a typical day when you are drinking? Patient does not drink Q3: How often do you have si x or more drinks on one occasion? Never 02/15/2024 Personal Safety Answer Date Recorded Have you ever been in or are you currently in a harmful physical or emotional relationship or is someone making you feel afraid or unsafe? Denies 02/25/2024 Comments No Sex and Gender Information Value Date Recorded Sex Assigned at Not on file Legal Sex Female 1:18 PM GAMMA FACILITIES OPERATOR Gender Identity Not on file Sexual Orientation Not on file Last Filed Vital Signs Vital Sign Reading Time Taken Comments Blood Pressure 110/70 12/22/2024 1:59 PM GAMMA FACILITIES OPERATOR Pulse 50 12/22/2024 1:59 PM GAMMA FACILITIES OPERATOR Temperature 36.4 C (97.5 F) 12/22/2024 1:59 PM GAMMA FACILITIES OPERATOR Respiratory Rate 18 12/22/2024 1:59 PM GAMMA FACILITIES OPERATOR Oxygen Saturation 99% 12/22/2024 1:59 PM GAMMA FACILITIES OPERATOR Inhaled Oxygen Concentration - - Weight 62.5 kg (137 lb 12.8 oz) 03/10/2025 8:29 AM CDT Height 154.9 cm (5' 1 ) 12/22/2024 1:59 PM GAMMA FACILITIES OPERATOR Body Mass Index 26.04 12/22/2024 1:59 PM GAMMA FACILITIES OPERATOR Plan of Treatment Not on file Medical Devices Implanted Type Area Driving Teacher Device Identifier Shelf Expiration Date Model / Serial / Lot [employer] Surgical Instruments [id number] Jacey .035in 4in [place] Both Ends Orthopedic Wire - [id number] Implanted:Qty: 1 on 12/19/2020 by Deena Ying MD at [facility] [employer] [id number] / / Synthes 1.5mm 8mm Self Tap Stardrive Cortex T4 Screw Bone Stainless Steel - [id number] Implanted:Qty: 1 on 12/19/2020 by Deena Ying MD at [facility] Right: Fingers Synthes I / / Insurance [id number] [id number] [facility] Member Subscriber Plan / [facility] Name:Chen Coats Relation to Subscriber:Self Name:Chen Coats Payer ID:[id number] Group ID:Not on file Type:OTHER GOVERNMENT Address: [facility] [id number] [place] [address] [place] [facility] Care Teams Grape Grower Relationship Specialty Start Date End Date Jonathan Alejandra MD [address] [place] [address] PCP - General 09/07/17
--- OUTSIDE RECORDS SUMMARY | 2025-03-24 07:27 | XMS_ITS | Clinical Summary ---
Author Organization [facility] Address [address] [place] [address] Care Team Providers Care Drop Board Worker Name Role Phone Jonathan Alejandra MD Primary Care Provider + [phone] Allergies Active Allergy Reactions Criticality Noted Date [...] 12/17/2021 Assessment & Plan (12/22/2024 2:24 PM REVIEW TRAINER): Patient continue to wear her CPAP at auto titrating range to 12-13 cm water pressure while sleeping. [facility] I have sent an order over for the patient to be supplied with small nasal pillows instead of her current mask which is just a nasal mask. Assessment & Plan (12/22/2023 3:10 PM REVIEW TRAINER): Due to continued symptoms, the patient will continue with CPAP at 12 cm water pressure. [facility] Assessment & Plan (12/16/2022 3:38 PM REVIEW TRAINER): Patient continue to wear CPAP at 12 cm water pressure while sleeping. The patient's DME is [facility]. Assessment & Plan (12/17/2021 8:34 AM REVIEW TRAINER): Patient continue to wear CPAP at 12 cm water pressure while sleeping. The patient's DME is [facility]. Hypersomnia 12/17/2021 Assessment & Plan (12/22/2023 3:10 PM REVIEW TRAINER): No longer requiring medication Assessment & Plan (12/16/2022 3:38 PM REVIEW TRAINER): The patient has not needed Nuvigil. The patient states that the B12 and folic acid is helping with her energy level. Assessment & Plan (12/17/2021 8:33 AM REVIEW TRAINER): Patient continue with Nuvigil 150mg half tablet p.o. Q a.m.. Displaced fracture of distal phalanx of right little finger, initial encounter for closed fracture 12/13/2020 Overview (12/13/2020): Added automatically from request for surgery [id number] Displaced fracture of middle phalanx of right ring finger, initial encounter for closed fracture 12/13/2020 Overview (12/13/2020): Added automatically from request for surgery [id number] Gastroesophageal reflux disease 07/13/2014 Encounters Date Type Department Care Team Description 03/10/2025 8:40 AM CDT Therapy [facility] Otolaryngology [address] [facility] Advanced Medicine [address]th [place] [address] [place] [address] Carli Rivera, DAVID Lesion of vocal fold (Primary Dx); Dysphonia 03/10/2025 8:40 AM CDT Office Visit [facility] - [facility] ENT [address] [facility] 11th [place] [address] [place] [address] Brian Zamora MD Dysphonia 02/10/2025 Telephone [facility] - [facility] ENT [address] [facility] 11th [place] [address] [place] [address] Valentina Reyes MS from Last 3 Months Immunizations Immunization Administration Dates Next Due H1N1 [...] Typhoid H-P SQ/ID 04/29/2002 Yellow Fever 03/26/2002 Surgical History Surgery Date Site/Laterality Comments [place] RHINP PRIM LAT&ALAR CRTLGS&/ELVTN NASAL TI 11/09/2011 - 11/08/2012 Rhinoplasty - (Added by TW Conv) WISDOM TOOTH EXTRACTION 11/09/2004 - 11/08/2005 Oral Surgery Tooth Extraction [place] Tooth - (Added by TW Conv) KNEE ARTHROPLASTY 11/09/2014 - 11/08/2015 Left Knee Arthroplasty and 2004 HIP ARTHROSCOPY 12/15/2017 Right CARPAL TUNNEL RELEASE 11/09/2010 - 11/08/2011 Left FACIAL RECONSTRUCTION SURGERY 11/09/2013 - 11/08/2014 HAND SURGERY 12/10/2020 - 01/06/2021 Right ring finger and pinky finger reconstruction with hardware, removed in 06/2021 TUBAL LIGATION 08/09/2021 - 09/08/2021 wih endometrial ablation SALPINGECTOMY Bilateral Medical History Medical History Date Comments Migraines Sleep apnea PONV (postoperative nausea and vomiting) does well with pre-treatment Sinusitis Allergies Other mechanical complicatio n of other bone devices, implants and grafts, sequela 02/05/2024 Family History Medical History Relation Name Comments No Known Problems Father Diabetes Mother Family history of diabetes mellitus - (Added by TW Conv) Anesthesia problems Neg Hx Pancreatic cancer Neg Hx Relation Name Status Comments Father Alive Mother Alive Social History Tobacco Use Types Packs/Day Years [...] on file Legal Sex Female 1:18 PM REVIEW TRAINER Gender Identity Not on file Sexual Orientation Not on file Obstetrics History Last Filed Vital Signs Vital Sign Reading Time Taken Comments Blood Pressure 110/70 12/22/2024 1:59 PM REVIEW TRAINER Pulse 50 12/22/2024 1:59 PM REVIEW TRAINER Temperature 36.4 C (97.5 F) 12/22/2024 1:59 PM REVIEW TRAINER Respiratory Rate 18 12/22/2024 1:59 PM REVIEW TRAINER Oxygen Saturation 99% 12/22/2024 1:59 PM REVIEW TRAINER Inhaled Oxygen Concentration - - Weight 62.5 kg (137 lb 12.8 oz) 03/10/2025 8:29 AM CDT Height 154.9 cm (5' 1 ) 12/22/2024 1:59 PM REVIEW TRAINER Body Mass Index 26.04 12/22/2024 1:59 PM REVIEW TRAINER Plan of Treatment Health Maintenance Due Date Last Done Comments Breast Cancer Screening-Mammogram 1982 Cervical Cancer Screening 1982 Depression Screening 1982 Hepatitis C Screening 1982 Varicella Vaccines (1 of 2 - 13+ 2-dose series) 1995 Regular Well Visit/Exam 18-64 2000 DTaP/Tdap/Td Vaccine (3 - Td or Tdap) 10/29/2023 10/29/2013, 10/25/2013, 04/29/2002 Influenza Vaccine (Season Ended) 2025 08/09/2020, 08/09/2019, 08/09/2018, Additional history exists HPV Vaccines Completed 08/25/2007, 04/09, 02/23/2007 Hepatitis B Screening Completed 09/29/2014 , 04/04/2014, 03/03/2014 Pneumococcal vaccine <65 Aged Out No longer eligible based on patient's age to complete this topic Medical Devices Implanted Type Area Associate Director Financial Aid Device Identifier Shelf Expiration Date Model / Serial / Lot [employer] [id number] Jacey .035in 4in [place] Both Ends Orthopedic Wire - [id number] Implanted:Qty: 1 on 12/19/2020 by Deena Ying MD at [facility] [employer] [id number] / / Synthes 1.5mm 8mm Self Tap Stardrive Cortex T4 Screw Bone Stainless Steel - [id number] Implanted:Qty: 1 on 12/19/2020 by Deena Ying MD at [facility] Advanced Medicine Right: Fingers Synthes I / / Insurance Member Subscriber Plan / Payer ( fective 2012-Present) Name:Chen Coats Relation to Subscriber:Self Name:Chen Coats Payer ID:[id number] Group ID:Not on file Type:OTHER GOVERNMENT Address: [address] [id number] Care Teams Drop Board Worker Relationship Specialty Start Date End Date Jonathan Alejandra MD [address] [place] [address] PCP - General 09/07/17
--- OUTSIDE RECORDS SUMMARY | 2025-03-24 07:27 | XMS_ITS | Data Portability ---
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 Plan of Treatment Reminders Order Date Submit Date Provider Last Modified By Organization Details Last Modified Time Details Appointments None recorded. Lab None recorded. Referral None recorded. Procedures cautery, cervix (PROC) 2020 021 [id number] 8 [facility], [facility], [address], 10:53:36 Surgeries salpingecto my, laparoscopi c (SURG) 2020 021 [id number] 8 [facility], [address], [address], 08:30:08 hysteroscop y, with endometrial [facility] (SURG) [facility], [address], 12:17:41 Imaging US, pelvis [id number], [address], [address], [place], [address], 16:46:26 US, transvagina l 2020 [id number], [address], [place], [address], 16:46:26 Medication Orders None recorded. Patient TargetsNo targets recorded. Patient InstructionsNo instructions recorded. Reason for Referral None Reported. Results Created Date Observation Date Name Description Value Unit Range Abnormal Flag Note LastModifiedBy Organization Detail LastModifiedTime 06/20/20 21 06/20/2021 HEPAT ITIS B SURFA CE ANTIG EN hepatitis B surface antigen Non-re active non-re active This assay was perfo rmed using [employer] n reage nts and test kits. Value s obtai joe with other assay metho ds or kits canno t be used inter morrison eably . Not Available [facility] (Lab) [address], [place], [address], 06/21/2021 21:34:51 06/20/20 21 06/20/2021 HEPAT ITIS C ANTIB KYLIE SCREE N, REFLE X TO CONFI RMATI ON hepatitis C antibody Non-re active non-re active This assay was perfo rmed using [employer] reage nts and test kits. Value s obtai joe with other assay metho ds or kits canno t be used inter morrison eajeremiah . Not Available [facility] (Lab) [address], [place], [address], 06/21/2021 21:34:51 06/20/20 21 06/20/2021 HIV 1/2 ANTIG EN/AN TIBOD Y, REFLE X CONFI RMATI ON HIV Ag-Ab total quant 0.06 idx <1.00 Not Available [facility] (Lab) [address] [place], [address], 06/21/2021 21:34:52 06/20/20 21 06/20/2021 HIV 1/2 ANTIG EN/AN TIBOD Y, REFLE X CONFI RMATI ON HIV Ag-Ab total Non-re active non-re active Not Available [facility] (Lab) [address] [place], [address], 06/21/2021 21:34:52 06/20/20 21 06/20/2021 HIV 1/2 ANTIG EN/AN TIBOD Y, REFLE X CONFI RMATI ON HIV-1 antibody quant 0.03 idx <1.[address] [facility] (Lab) [address], [place], [address], 06/21/2021 21:34:52 06/20/20 21 06/20/2021 HIV 1/2 ANTIG EN/AN TIBOD Y, REFLE X CONFI RMATI ON HIV-1 antibody Non-re active non-re active Not Available [facility] (Lab) [address], [place], [address], 06/21/2021 21:34:52 06/20/20 21 06/20/2021 HIV 1/2 ANTIG EN/AN TIBOD Y, REFLE X CONFI RMATI ON HIV-1 antigen (P24) quant 0.06 idx <1.00 Not Available [facility] (Lab) [address], [place], [address], 06/21/2021 21:34:52 06/20/20 21 06/20/2021 HIV 1/2 ANTIG EN/AN TIBOD Y, REFLE X CONFI RMATI ON HIV-1 antigen (P24) Non-re active non-re active Not Available [facility] (Lab) [address], [place], [address], 06/21/2021 21:34:52 06/20/20 21 06/20/2021 HIV 1/2 ANTIG EN/AN TIBOD Y, REFLE X CONFI RMATI ON HIV-2 antibody quant 0.04 idx <1.[address] [facility] (Lab) [address], [place], [address], 06/21/2021 21:34:52 06/20/20 21 06/20/2021 HIV 1/2 ANTIG EN/AN TIBOD Y, REFLE X CONFI RMATI ON HIV-2 antibody Non-re active non-re active HIV testi ng is perfo rmed using Multi plex- Bead Immun oassa y techn ology . The final overa ll HIV Ag-Ab resul t is deter mined based on the final resul t for each indiv idual jonathon te. If any of the jonathon clay has 2 or more repli cates that are REACT HAMIDA, the final overa ll HIV Ag-Ab resul t is also React hamida. A Non-R eacti ve test resul t at any point in the inves tigat ion of indiv idual subje cts does not precl ude the possi bilit y of expos ure to or infec tion with HIV-1 and/o r HIV-2 . Non-R eacti ve resul ts can occur if the quant ity of marke r prese nt in the sampl e is below the detec tion limit s of the assay . React hamida speci mens must be inves tigat ed by addit ional , more speci fic suppl ement al tests . Speci men confi rmati on will be perfo rmed by the [employer] us HIV 1/2 Suppl ement al Assay . The perfo rmanc e of this assay has not been estab lishe d for neona clay and the assay shoul d not be used in indiv idual s young er than 2 years of age. Not Available [facility] (Lab) [address], [place], [address], 06/21/2021 21:34:52 06/20/2006/20/2021 RPR SCREE N/REF PRERNA TITER /FTA RPR screen Nonrea ctive nonrea ctive Not Available [facility] (Lab) [address], [place], [address], 06/21/2021 21:34:52 06/20/2006/20/2021 HEPAT ITIS B CORE, IGM hepatitis B core IgM antibody Negati ve negati ve Not Available [facility] (Lab) [address] [place], [address], 06/21/2021 21:34:53 06/20/20 21 06/20/2021 IMAGE GUIDE D PAP AND HPV REGAR DLESS image guided Pap, HPV regardless of Pap result SEE RESULT S BELOW CASE REPOR T: Cytol ogy Gynec ologi sharona Repor t Case: [id number] Autho jazmin montemayor Provi gómez: Shawna dye , Paulina Card cted: 06/20 1507 DOCTOR ASSISTANT Order ing Locat ion: [place] [facility] Recei maribel: 06/21 0713 First Scree n: Judy baldwin, Feliz fung, CT Speci men: Delia mars Pap - Image d, Cervi x STATE MENT OF ADEQU ACY: Satis facto ry for evalu ation Trans forma tion zone compo nent prese nt FINAL DIAGN OSIS: Negat hamida for Intra epith elial Lesio n or Kala contreras Elect mae glez avery d by Judy baldwin, [place] fung, CT on 2020 at 11:06 AM ----- ----- ----- ----- ----- ----- ----- ----- ----- ----- ----- ----- ----- ----- ----- ----- ----- ---- HPV RESUL TS: HPV mRNA E6/E7 : No HPV mRNA Detec emily NOTE: This high risk HPV mRNA assay detec ts fourt een high- risk HPV types (16, 18, 31, 33, 35, 39, 45, 51, 52, 56, 58, 59, 66, 68) witho ut diffe renti ation . CHART ABLE COMME NT: Note: This speci men was revie wed by a Cytot echno logis t and/o r Patho logis t (as indic ated in this repor t) after evalu ation using the Thinp rep Imagi ng Syste m. CLINI SHARONA INFOR MATIO N: Menst rual Statu s: LMP (if appli cable ): 2020 Clini sharona Histo ry/Pr eviou s Pap: Type of Neopl trino (if appli cable ): Signi fican t Clini sharona Findi ngs: Other Histo ry: Hormo vernon (if appli cable ): PAP EDUCA ROCKY L NOTE: The Pap Test is a scree jerad test with an inher ent false negat hamida rate. Liqui d-bas e sampl ing may decre ase, but will not elimi loretta, false negat hamida resul ts. A negat hamida resul t does not precl ude the prese nce and/o r devel opmen t of disea se, since the prese nce of abnor mal cells in the sampl e depen ds on the locat ion of the lesio n and sampl ing techn ique. Cecil nued regul ar scree jerad is the best metho d of cance r preve ntion . If repor emily cytol ogic findi ng do not corre late with physi sharona and/o r histo rical findi ngs, furth er inves tigat ion is recom martha d, as clini yael warra nted. Not Available [facility] (Lab) [address] , [place], [address], 06/24/2021 12:09:35 06/20/20 21 06/20/2021 TRICH OMONA S VAGIN KRIS (RRNA ) trichomonas vaginalis ribosomal RNA (rrna) Negati ve negati ve Not Available [facility] (Lab) [address], [place], [address], 06/24/2021 12:09:36 06/20/20 21 06/20/2021 CT/GC (JONNA) , THINP REP VIAL chlamydia trachomatis, PCR Negati ve negati ve Not Available [facility] (Lab) [address] [place], [address], 06/24/2021 12:09:37 06/20/20 21 06/20/2021 CT/GC (JONNA) , THINP REP VIAL neisseria gonorrhoeae, PCR Negati ve negati ve Not Available [facility] (Lab) [address], [place], [address], 06/24/2021 12:09:37 07/04/20 21 07/04/2021 US, pelvi s No observ ation record ed. [facility] [address], [place], [address], 07/04/2021 12:58:42 07/04/20 21 07/04/2021 US, trans vagin al No observ ation record ed. [facility] [address], [place], [address], 07/04/2021 12:59:07 07/04/20 21 07/04/2021 US, pelvi s No observ ation record ed. aruehrlanette [address], [place], [address], 07/17/2021 17:24:13 Result Notes None recorded. Problems Name Problem SNOMED Code Status Onset Date Resolution Date Notes Provider Name and Address Organization Details Recorded Time Speciali reji medical examinat ion Completed 201306/20/2021 Routine gynecolog ical examinati on;Practi ce ID: 0001 Concetta onofre [facility] 12:13:29 Speciali reji medical examinat ion Completed 201306/20/2021 Other specified chlamydia l diseases; Practice ID: 0001 Concetta onofre [facility] 12:13:30 Venereal disease screenin g Completed 201306/20/2021 Screening examinati on for venereal disease;Juliet gooden ID: 0001 Concetta onofre [facility] 12:13:32 Screenin g for malignan t neoplasm of cervix Completed 201306/20/2021 Pap Smear;Krista titusice ID: 0001 Concetta onofre [facility] 08/12/202 1 12:13:23 Female genital organ symptoms [id number] Completed 201306/20/2021 Pelvic Pain;Prac steven ID: 0001 Concetta Devries [facility] 12:13:[address] Concept Completed 201506/20/2021 Encntr for smt technician exam (general) (routine) w/o abn findings; Practice ID: 0001 Concetta Devries [facility] 12:13:26 Uses combined oral contrace ption [id number] Completed 201506/20/2021 Encounter for initial prescript ion of contracep tive pills;Pra ctice ID: 0001 Concetta Devries [facility] 12:13:[address] Concept Completed 201506/20/2021 Encounter for surveilla nce of other contracep tives;Pra ctice ID: 0001 Concettashanita Devries [facility] 12:13:28 Pregnanc y test negative [id number] Completed 201506/20/2021 Encounter for test, result negative; Practice ID: 0001 Concetta Devries [facility] 12:13:19 Procedur e Completed 201606/20/2021 Enctr srvlnc implantab le subdermal contracep tive;Prac steven ID: 0001 Concettashanita Devries [facility] 12:13:[address] Concept Completed 201706/20/2021 Encntr for general adult medical exam w/o abnormal findings; Recorded Elsewhere : No Locati on: [facility] So urce: EHR Chron ic: N Practic e ID: 0001 Bill able Time: 02:30:00 PM Concettashainta Devries [facility] 12:13:24 Dyspareu lia [id number] Completed 201206/20/2021 Dyspareun ia;Record ed Elsewhere : No Locati on: [facility] So urce: EHR Chron ic: N Practic e ID: 0001 Bill able Time: 10:30:00 AM Concetta Devries jemima [facility] 12:13:16 Body mass index 25-29 - overweig [id number] Completed 201506/20/2021 Body mass index (BMI) 25.0-25.9 , adult;Rec orded Elsewhere : No Locati on: [facility] So urce: EHR Chron ic: N Practic e ID: 0001 Bill able Time: 09:30:00 AM Concetta Devries jemima [facility] 12:13:13 Problem Notes None recorded. Procedures Surgical History Date Name Laterality Status Provider Name and Address Organization Details Recorded Time 08/09/20 21 total excision of bilateral fallopian tubes completed [facility] 08/15/2021 10:05:37 08/09/20 21 procedure on cervix completed [facility] 08/15/2021 10:06:22 08/09/20 21 HYSTEROSCOPY, WITH ENDOMETRIAL ABLATION (SURG) completed Dolly Smith [facility] 08/12/2021 10:39:08 11/26/19 19 Date of Last Pap Smear completed [facility] 06/18/2021 09:39:13 11/09/19 18 repair of hip completed [facility] 06/18/2021 09:37:11 11/09/19 12 laparoscopy completed [facility] 06/18/2021 09:36:47 11/09/19 12 Unlisted px accessory sinus completed [facility] 06/18/2021 09:37:01 11/09/19 11 Carpal tunnel surgery completed [facility] 06/18/2021 09:36:37 11/09/19 04 procedure on knee completed [facility] 06/18/2021 09:35:55 reconstruction of facial bones completed [facility] 06/18/2021 09:35:37 Imaging Results Imaging Date Name Status LastModified by Organization Details LastModified Time 07/04/2021 US, pelvis completed [facility] [address], [place], [address], 07/04/2021 12:58:42 07/04/2021 US, transvaginal completed [facility] [address], [place], [address], 07/04/2021 12:59:07 07/04/2021 US, pelvis completed michelahrlanette Idalia [address], [place], [address], 07/17/2021 17:24:13 Procedure Notes None recorded. Medical Equipment None Reported. Allergies Allergen ID Allergen Name Allergen Category Reaction Reaction Severity Criticality Documentation Date Start Date Code Code System Note Provider Name and Address Organization Details Recorded Time 47869 metronida zole medicatio n Not available Not available Not available 10/26/2020 6922 RxNorm Comme nt: [facility] sat[facility] e Agent : Flagy l; Not Available [facility] 0 14:17:57 61326 vancomyci n medicatio n Not available Not available Not available 10/26/2020 95273 RxNorm Comme nt: [facility]at [facility]; Not Available [facility] 0 14:17:57 77613 Product containin g penicilli n (product) medicatio n Not available Not available Not available 10/26/2020 31531 8001 SNOMED Comme nt: [facility]at [facility]: [facility]; Not Available [facility] 0 14:17:57 91622 Omnicef medicatio n Not available Not available Not available 06/20/2021 88451 RxNorm Concetta [facility] 1 12:30:08 Medications Name Sig Start Date Stop Date Status Note LastModified by Organization Details LastModified Time cyclobenz aprine 10 mg tablet 06/20 completed Not Available Not Available Not Available prednison e 10 mg tablet 06/20 completed Not Available Not Available Not Available doxycycli ne hyclate 100 mg capsule 06/20 completed Not Available Not Available Not Available clindamyc in HCl 300 mg capsule active Not Available Not Available Not Available Stool Softener 100 mg capsule 06/20 completed Not Available Not Available Not Available ibuprofen 800 mg tablet TAKE 1 TABLET BY MOUTH THREE TIMES DAILY WITH FOOD active Not Available Not Available No t Available hydrocodo ne 5 mg-acetam inophen 325 mg tablet TAKE 1 TO 2 TABLETS BY MOUTH EVERY 4 TO 6 HOURS NEEDED . DO NOT EXCEED 8 PER 24 HOURS active Not Available Not Available No t Available cefadroxi l 500 mg capsule 08/05 completed Not Available Not Available Not Available verapamil ER (SR) 240 mg tablet,ex tended release active Not Available Not Available Not Available verapamil 80 mg tablet take 1 tablet by oral route 3 times every day 06/20 completed Prescrib ed Elsewher e: Yes Loca tion: [facility] odify By: kamari Liao untrafa DateTime : 10/14/20 13 10:30:00 AM Not Available Not Available Not Available Vitamin D2 1,250 mcg (50,000 unit) capsule take 1 capsule by oral route every week 2013 active Prescrib ed Elsewher e: No Locat ion: [facility] odify By: lara de paz DateTime : 10/20/20 14 11:00:00 AM Not Available Not Available Not Available fluticaso ne propionat e 50 mcg/actua tion nasal spray,joslyn pension active Not Available Not Available Not Available Jane (28) 3 mg-0.03 mg tablet take 1 tablet by oral route every day for 28 days 02/06 completed Prescrib ed Elsewher e: No Locat ion: [facility] odify By: davion de paz DateTime : 01/11/20 16 03:45:00 PM Not Available Not Available Not Available amoxicill in 875 mg-potass ium clavulana te 125 mg tablet 06/20 completed Not Available Not Available Not Available Topamax 50 mg tablet take 1 tablet by oral route 2 times every day active Prescrib ed Elsewher e: Yes Loca tion: [facility] odify By: kamari stevens Enco unter DateTime : 10/14/20 13 10:30:00 AM Not Available Not Available Not Available Zyrtec 10 mg capsule active Prescrib ed Elsewher e: Yes Loca tion: [facility] odify By: kamari stevens Enco unter DateTime : 10/14/20 13 10:30:00 AM Not Available Not Available Not Available Vitals Date Recorded Body height Body mass index (BMI) Body weight Systolic blood pressure Diastolic blood pressure Provider Name and Address Organization Details Last Updated DateTime 07/11/2021 152.4 cm 27.9 kg/m2 44558.71 g 123 mm[Hg] 77 mm[Hg] [facility] 15:27:18 Date Recorded Body height Body mass index (BMI) Body weight Systolic blood pressure Diastolic blood pressure Provider Name and Address Organization Details Last Updated DateTime 08/05/2021 152.4 cm 28.4 kg/m2 20622.61 g 129 mm[Hg] 82 mm[Hg] Concetta Devries [facility] 15:33:33 Date Recorded Body height Body mass index (BMI) Body weight Systolic blood pressure Diastolic blood pressure Provider Name and Address Organization Details Last Updated DateTime 08/15/2021 152.4 cm 27.9 kg/m2 62258.71 g 114 mm[Hg] 72 mm[Hg] [facility] 09:55:19 Social History Question Answer Notes LastModified by Organizat ion Details LastModified Time Tobacco Smoking Status Never Smoker Jordi Jordan [facility], [facility] 08/15/2021 09:38:44 Do You Have An Advance Directive? Yes Information n ot available 06/20/2021 Are You Blind Or Do You Have Difficulty Seeing? No Information n ot available 06/20/2021 What Is Your Level Of Caffeine Consumption? Occasional Information not available 06/20/2021 How Much Tobacco Do You Chew? None Information not available 06/20/2021 In The 14 Days Before Symptom Onset, Have You Had Close Contact With A Laboratory-confirm ed COVID-19 While That Case Was Ill? No Information n ot available 06/20/2021 In The 14 Days Before Symptom Onset, Have You Had Close Contact With A Person Who Is Under Investigation For COVID-19 While That Person Was Ill? No Information not available 06/20/2021 Have You Been To An Area Known To Be High Risk For COVID-19? No Information not available 06/20/2021 Are You Deaf Or Do You Have Serious Difficulty Hearing? No Information not available 06/20/2021 What Type Of Diet Are You Following? REGULAR Information n ot available 06/20/2021 What Is The Highest Grade Or Level Of School You Have Completed Or The Highest Degree You Have Received? [id number] Information not available 06/28/2021 Are There Any Guns Present In Your Home? Yes Information not available 06/20/2021 Do You Use Your Seat Belt Or Car Seat Routinely? Yes Information not available 06/20/2021 Do You Have Smoke And Carbon Monoxide Detectors In Your Home? Yes Information not available 06/20/2021 How Much Tobacco Do You Smoke? No Information not available 06/20/2021 Do You Use Sunscreen Routinely? No Information not available 06/20/2021 Have You Used IV Drugs? No Information not available 06/20/2021 Sex: Unknown Functional Status Question Answer Note LastModified by Organizat ion Details LastModified Time Do you use any illicit or recreational drugs? No Information not available 06/20/2021 What is your level of alcohol consumption? None Information not available 06/20/2021 Are you able to walk? YESWOREST [email or web address] Information not available 06/28/2021 What is your exercise level? Occasional Information not available 06/20/2021 Mental Status None recorded. Family History Relationship Description Onset Age of this Age Resolved Age Notes LastModified by Organization Details LastModified Time Mother Malignant tumor of cervix Not available 2020 12:32:44 Mother Diabetes mellitus Not available 2020 12:33:39 Maternal Grandmother Malignant tumor of cervix Not available 2020 12:32:44 Maternal Grandmother Malignant tumor of pancreas [email or web address] Not available 2020 09:38:43 Maternal Grandmother Diabetes mellitus Not available 2020 12:33:17 Maternal Grandfather Diabetes mellitus Not available 2020 12:33:05 Paternal Grandfather Malignant tumor of colon Not available 2020 12:33:34 Medical History Condition Response Allergies (Food, seasonal, environmental ) N Other N Drug/Latex Allergies/Reactions N Blood Transfusion N Breast Cancer N Dermatologic Disorders N Lung Disease N Defects or Inherited Disease N Breast Problem N Gestational Diabetes N Hematologic disorders N Anesthesia Complications N History of STI N Deep Vein Thrombosis N Polycystic ovary syndrome Y Anxiety Disorder N Autoimmune disease N Arthritis N Polyps N Infertility N Acid Reflux (GERD) N History of abnormal pap N Cancer N Varicosities N Stroke N Neurologic/Epilepsy N Endometriosis N High Cholesterol N Fibromyalgia N Headaches N Kidney Disease N Heart Problems N Thyroid Problems N Kidney or Bladder Problems N GI Problems N Eating Disorder N Anemia N Art (IVF or FET) N Psychiatric Illness N Ovarian Cancer N Diabetes N Pulmonary (TB, Asthma) N Hepatitis/Liver Disease N No Past Medical History N Eczema N Urinary Tract Infection N Abuse/Domestic Violence N Asthma N Trauma/Violence N Depression/ depression N Heart Disease N Pre-Eclampsia N Hypertension N Osteoporosis N Thrombophilias N Gynecological History Statement/Question Response Flow Moderate Date of LMP 06/27/2021 On BCP's at Conception? N N Was last menstrual period normal Y STIs/STDs Y HPV Vaccine Y Duration of Flow (days) 3 Current Control Method Sterilizati on Age at First Child 23 Sexually Active? N Menses Monthly Y Age of first menstrual cycle 17 Date of Last Pap Smear 11/26/2018 Sexual Problems? N Desired Control Method None LMP Approximate N Obstetrics History GPAL:G 1 P 1 0 0 1 Type Value Full Term 1 Living 1 Total 1 Past Encounters Encounter ID Performer Location Encounter Start Date Encounter Closed Date Diagnosis/Indication Diagnosis SNOMED-CT Code Diagnosis ICD10 Code Diagnosis Note [id number] Kimi Perkins MD [facility] [address] [address] 06/18/2021 15:19:42 07/03/2021 11:25:22 [id number] Jessica Ham [facility] [address],[place] [address] 06/20/2021 12:17:56 06/20/2021 12:58:55 Gynecologic examination [id number] Z01.419 Take Calcium with Vitamin D 1200mg daily if not receiving in daily diet. It is strongly advised to have an annual flu shot and up can obtain at most pharmacies . If you have not had a TDap shot in the last 10 years you should obtain one as well. Discussed with patient & provided with informatio n regarding Gardisil vaccine to prevent the 4 strains for HPV that cause cervical cancer if under age 26. Encourage safe sexual practices, to use condoms and limit partners if not already in a monogamous relationsh ip. Do monthly self breast exams. Have mammogram yearly or every other year depending on family history. BRCA testing is now available for patients with strong genetic history of female cancer. If interested contact the office. Engage in daily exercise of low impact aerobic exercise 45-60 minutes 4-5 times weekly. Avoid tobacco and illicit drugs as well as using moderation with alcohol intake less than 1-2 8 oz beverages daily. This lifestyle behavior pattern will lead to less health conditions and longer life span. If BMI greater than 25 weight watchers or dietary consult advised. Patient received above instructio ns, and questions have been answered. If you have any questions please call or respond to this email. Patient was made aware of the patient portal and may obtain a paper copy of today's plan if desired. Pap/hpv updatedSTD Sandra FREDERICK consult for heavy menses & possibly surgical options for control.Un sure if she is interested in hormonal BC options.Lo oking for a more permanent BC method. Sexually t ransmitted infectious disease [id number] Jamal Potts MD [facility] [address] [address] 06/28/2021 12:07:39 06/28/2021 14:29:33 Menorrhagia [id number] N92.0 this patient is a 40-year-ol d female with severe menorrhagi a and mucousy vaginal discharge. Patient has been treated previously . She has failed a variety of medical treatments . Patient is interested in definitive or effective surgical treatment that did not require hormones. The patient has migraine with aura and can only use a limited number of medical options. Spent more than 25 minutes face-to-fa ce we discussed multiple options in detail. We discussed hysterecto my and endometria l ablation. We talked about ovarian preservati on -the risks, benefits, pros, cons. She will likely have to keep her ovaries due to the migraine with aura. Talked about treatments for cervical mucus. Talked about removal of the endocervic al tissue. We do not have an up-to-date pelvic ultrasound . We will obtain a pelvic ultrasound and discuss those results with treatment in mind. 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 Role Phone Sofia Henderson Primary Care Provider UnavailCora Holly Unavailable [phone] Emery Paulino Unavailable [phone] REASON FOR VISIT SCIT - Traditional Schedule Allergy Immunotherapy (Week ) Medications Medication SIG (Take, Route, Frequency, Duration) Notes Start Date End Date Status TRIAMCINOLONE TOPICAL 0.1% 1 mick applied topically 3 times a day for 7 days 3 Not-Taking VERAPAMIL 240 mg/24 hours 1 cap(s) orally once a day for 30 day(s) Not-Taking BREO ELLIPTA 100 mcg-25 mcg/inh 1 puff(s) inhaled once a day for 30 days Not-Taking OLOPATADINE NASAL 665 MCG/INH 2 SPRAY(S) INTRANASALLY QDAY for 30 DAYS *Please review for potential replacement for e-prescription and drug interaction check* Not-Taking Breo Ellipta 100 MCG-25 MCG/INH 1 PUFF(S) INHALED ONCE A DAY for 30 DAYS *Please review and pick correct strength-formulation from [employer] options. If intended option is not shown, discontinue and re-order from Quick Search* Not-Taking TOPAMAX 100 mg 1 tab(s) orally 2 times a day for 30 day(s) Not-Taking FOLIC ACID 1 mg 1 tab(s) orally once a day for 30 day(s) Not-Taking FLONASE 0.05 mg/inh 2 spray(s) intranasally (avoid nasal septum) once a day for 30 day(s) Not-Taking PANTOPRAZOLE 40 mg 1 tab(s) orally once a day for 30 day(s) Not-Taking VITAMIN D3 50 mcg 1 tab(s) orally once a day for 30 day(s) Not-Taking predniSONE 20 MG 1 tablet Orally Once a day Active FLUTICASONE NASAL 50 mcg/inh 2 spray(s) in each nostril Qday for 30 day(s) Not-Taking CETIRIZINE 10 mg 1 tab(s) orally once a day for 30 days Not-Taking MONTELUKAST 10 mg 1 tab(s) orally 30 minutes preior to SCIT for 30 days Not-Taking FAMOTIDINE 40 mg 1 tab(s) orally 30 mins prior to SCIT for 30 days Not-Taking Verapamil HCl ER 240 MG 1 cap(s) orally once a day for 30 day(s) Active Topamax 100 MG 1 tab(s) orally 2 times a day for 30 day(s) Active EpiPen 2-Enrique 0.3 MG/0.3ML as directed Injection Yes, generic adrenaclick is ok. Active Folic Acid 1 MG 1 tab(s) orally once a day for 30 day(s) Active Pantoprazole Sodium 40 MG 1 tab(s) orally once a day for 30 day(s) Active Montelukast Sodium 10 MG 1 tab(s) orally 30 minutes preior to SCIT for 30 days Active Fluticasone Propionate 50 MCG/ACT 1 spray in each nostril in each nostril Qday for 30 days Active SIT (CLUSTER) VARIABLE PER SCHEDULE SC PER SCHEDULE for 999 DAYS *Please review for potential replacement for e-prescription and drug interaction check* Active Flonase Allergy Relief 50 MCG/ACT 2 spray(s) intranasally (avoid nasal septum) once a day for 30 day(s) Active Vitamin D3 50 MCG 1 TAB(S) ORALLY ONCE A DAY for 30 DAY(S) *Please review and pick correct strength-formulation from [employer] options. If intended option is not shown, discontinue and re-order from Quick Search* Active Fluticasone-Salmet jodi 230-21 MCG/ACT 2 puffs Inhalation Twice a day Switched from Wixela DPI to HFA per [facility] recommendations due to thrush. Resent due to error on code. Resending under shortness of breath and with correct dosing. Active SIT (TRADITIONAL) variable per schedule SC per schedule for 999 days Active Cetirizine HCl 10 MG 1 tab(s) orally once a day for 30 days Active EpiPen 2-Enrique 0.3 mg as directed intramuscularly once for 30 days Active MONTELUKAST 10 mg 1 tab(s) orally once a day for 30 days Active AEROCHAMBER MDI SPACER - MOUTHPIECE (ADULT) N/A As directed PO Per asthma action plan for 30 day(s) Active FLUTICASONE NASAL 50 mcg/inh 1 spray(s) in each nostril Qday for 30 days Active CETIRIZINE 10 mg 1 tab(s) orally Twice a day for 30 days Active NASAL WASHES N/A as directed intranasally as needed for 30 days Active OLOPATADINE NASAL 665 mcg/inh 2 spray(s) intranasally Qday for 30 days Active Triamcinolone Acetonide 0.1 % 1 mick applied topically 3 times a day for 7 days 3 Active Famotidine 40 mg 1 tab(s) orally Twice a day for 30 days Active ALBUTEROL (EQV-PROAIR HFA) 90 mcg/inh 2 puff(s) inhaled every 6 hours for 30 days Active Famotidine 20 MG 1 tablet at bedtime as needed Orally Once a day for 90 days 5 Active Montelukast Sodium 10 MG 1 tablet Orally Once a day for 90 days 5 Active ZyrTEC Allergy 10 MG 1 tab(s) orally once a day Not-Taking ZYRTEC 10 mg 1 tab(s) orally once a day Not-Taking Social History Sex Assigned At : Social History Observation Description Sex Assigned At Female Encounters Encounter Location Date Provider Diagnosis [facility] [address] [place] [address] 03/14/2025 Emery Paulino Allergic rhinitis du e to pollen J30.1 ; Other allergic rhinitis J30.89 ; Allergic rhinitis due to animal (cat) (dog) hair and dander J30.81 and Other chronic allergic conjunctivitis H10.45 Assessments Encounter Date Diagnosis (ICD Code) Assessment Notes Treatment Notes Treatment Clinical Notes Section Notes 03/14/2025 Allergic rhinitis due to pollen (ICD-10 - J30.1) 03/14/2025 Other allergic rhinitis (ICD-10 - J30.89) 03/14/2025 Allergic rhinitis due to animal (cat) (dog) hair and dander (ICD-10 - J30.81) 03/14/2025 Other chronic allergic conjunctivitis (ICD-10 - H10.45) Plan Of Treatment Next Appt Details Follow Up: As scheduled, Jennifer son: Provider Name:Emery CifuentesAbdullahi Paulino , 04/18/2025 03:00:00 PM, [address] [facility], [address], [place], [address], Progress Notes * Chen COATS LDOB:[birth year] (44 yo F)Acc No.[id number]:03/14/2025 SCIT-Aeroallergen Patient: Shreya HENDERSONkatlyn Levi Provider: Juliet Paulino MD :1980 A ge:44 Y S ex:Female Date:03/14/2025 Address:[address] [place], [place] [address] Pcp:Sofia Henderson Subjective: * Chief Complaints: * S CIT - Traditional Schedule Allergy Immunotherapy (Week ) * HPI: * Introduction: The patient is here for scheduled immunotherapy. Please see the attached specialty form regarding the specifics of the administration of these vaccines. As per our protocol, they must undergo a screening health questionnaire (medication changes, reaction(s) to last immunotherapy dose(s), current health status, ACT (if appropriate), self-injectable epinephrine on patient(?) and peak flow (if appropriate)). Also, the patient must wait in our office for 30 minutes after receiving the vaccine(s). Furthermore, every patient must have an epinephrine pen (self-injectable) with them at the time of administration--and carry if for the following 1.5 hours after they leave our office. The patient must also have taken their antihistamine the day of the injection, preferably 2 hours prior. The consent form for SCIT (subcutaneous immunotherapy) is on file. * Medical History: * Surgical History: * Hospitalization/Major Diagno stic Procedure: * Medications: T akingFamotidine 40 mg tablet 1 tab(s) orally Twice a day Famotidine 40 mg tablet 1 tab(s) orally Twice a day ALBUTEROL (EQV-PROAIR HFA) 90 mcg/inh aerosol 2 puff(s) inhaled every 6 hours AEROCHAMBER MDI SPACER - MOUTHPIECE (ADULT) N/A Spacer for MDI use As directed PO Per asthma action plan CETIRIZINE 10 mg tablet 1 tab(s) orally Twice a day FLUTICASONE NASAL 50 mcg/inh spray 1 spray(s) in each nostril Qday OLOPATADINE NASAL 665 mcg/inh spray 2 spray(s) intranasally Qday NASAL WASHES N/A 1 quart of sterilized tap water or distilled water, 1 tsp NaCl, 1 pinch of baking soda as directed intranasally as needed MONTELUKAST 10 mg tablet 1 tab(s) orally once a day SIT (TRADITIONAL) variable see record per schedule SC per schedule Fluticasone-Salmeterol 230-21 MCG/ACT Aerosol 2 puffs Inhalation Twice a day , Notes to Pharmacist: Switched from Wixela DPI to HFA per [facility] recommendations due to thrush. Resent due to error on code. Resending under shortness of breath and with correct dosing.EpiPen 2-Enrique 0.3 mg kit as directed intramuscularly once Cetirizine HCl 10 MG Tablet 1 tab(s) orally once a day Fluticasone Propionate 50 MCG/ACT Suspension 1 spray in each nostril in each nostril Qday Montelukast Sodium 10 MG Tablet 1 tab(s) orally 30 minutes preior to SCIT Flonase Allergy Relief 50 MCG/ACT Suspension 2 spray(s) intranasally (avoid nasal septum) once a day SIT (CLUSTER) VARIABLE SEE RECORD PER SCHEDULE SC PER SCHEDULE , Notes to Pharmacist: *Please review for potential replacement for e-prescription and drug interaction check*Vitamin D3 50 MCG TABLET 1 TAB(S) ORALLY ONCE A DAY , Notes to Pharmacist: *Please review and pick correct strength-formulation from [employer] options. If intended option is not shown, discontinue and re-order from Quick Search*Pantoprazole Sodium 40 MG Tablet Delayed Release 1 tab(s) orally once a day Folic Acid 1 MG Tablet 1 tab(s) orally once a day Topamax 100 MG Tablet 1 tab(s) orally 2 times a day Verapamil HCl ER 240 MG Capsule Extended Release 24 Hour 1 cap(s) orally once a day EpiPen 2-Enrique 0.3 MG/0.3ML Solution Auto-injector as directed Injection , Notes to Pharmacist: Yes, generic adrenaclick is ok.predniSONE 20 MG Tablet 1 tablet Orally Once a day Montelukast Sodium 10 MG Tablet 1 tablet Orally Once a day Famotidine 20 MG Tablet 1 tablet at bedtime as needed Orally Once a day Triamcinolone Acetonide 0.1 % Ointment 1 mick applied topically 3 times a day Taking Famotidine 40 mg tablet 1 tab(s) orally Twice a day Taking Famotidine 40 mg tablet 1 tab(s) orally Twice a day Taking ALBUTEROL (EQV-PROAIR HFA) 90 mcg/inh aerosol 2 puff(s) inhaled every 6 hours Taking AEROCHAMBER MDI SPACER - MOUTHPIECE (ADULT) N/A Spacer for MDI use As directed PO Per asthma action plan Taking CETIRIZINE 10 mg tablet 1 tab(s) orally Twice a day Taking FLUTICASONE NASAL 50 mcg/inh spray 1 spray(s) in each nostril Qday Taking OLOPATADINE NASAL 665 mcg/inh spray 2 spray(s) intranasally Qday Taking NASAL WASHES N/A 1 quart of sterilized tap water or distilled water, 1 tsp NaCl, 1 pinch of baking soda as directed intranasally as needed Taking MONTELUKAST 10 mg tablet 1 tab(s) orally once a day Taking SIT (TRADITIONAL) variable see record per schedule SC per schedule Taking Fluticasone-Salmeterol 230-21 MCG/ACT Aerosol 2 puffs Inhalation Twice a day , Notes to Pharmacist: Switched from Wixela DPI to HFA per [facility] recommendations due to thrush. Resent due to error on code. Resending under shortness of breath and with correct dosing.Taking EpiPen 2-Enrique 0.3 mg kit as directed intramuscularly once Taking Cetirizine HCl 10 MG Tablet 1 tab(s) orally once a day Taking Fluticasone Propionate 50 MCG/ACT Suspension 1 spray in each nostril in each nostril Qday Taking Montelukast Sodium 10 MG Tablet 1 tab(s) orally 30 minutes preior to SCIT Taking Flonase Allergy Relief 50 MCG/ACT Suspension 2 spray(s) intranasally (avoid nasal septum) once a day Taking SIT (CLUSTER) VARIABLE SEE RECORD PER SCHEDULE SC PER SCHEDULE , Notes to Pharmacist: *Please review for potential replacement for e-prescription and drug interaction check*Taking Vitamin D3 50 MCG TABLET 1 TAB(S) ORALLY ONCE A DAY , Notes to Pharmacist: *Please review and pick correct strength-formulation from Ne[employer]ption options. If intended option is not shown, discontinue and re-order from Quick Search*Taking Pantoprazole Sodium 40 MG Tablet Delayed Release 1 tab(s) orally once a day Taking Folic Acid 1 MG Tablet 1 tab(s) orally once a day Taking Topamax 100 MG Tablet 1 tab(s) orally 2 times a day Taking Verapamil HCl ER 240 MG Capsule Extended Release 24 Hour 1 cap(s) orally once a day Taking EpiPen 2-Enrique 0.3 MG/0.3ML Solution Auto-injector as directed Injection , Notes to Pharmacist: Yes, generic adrenaclick is ok.Taking predniSONE 20 MG Tablet 1 tablet Orally Once a day Taking Montelukast Sodium 10 MG Tablet 1 tablet Orally Once a day Taking Famotidine 20 MG Tablet 1 tablet at bedtime as needed Orally Once a day Taking Triamcinolone Acetonide 0.1 % Ointment 1 mick applied topically 3 times a day Not-Taking/PRNCETIRIZINE 10 mg tablet 1 tab(s) orally once a day FLUTICASONE NASAL 50 mcg/inh spray 2 spray(s) in each nostril Qday FAMOTIDINE 40 mg tablet 1 tab(s) orally 30 mins prior to SCIT MONTELUKAST 10 mg tablet 1 tab(s) orally 30 minutes preior to SCIT FLONASE 0.05 mg/inh spray 2 spray(s) intranasally (avoid nasal septum) once a day VITAMIN D3 50 mcg tablet 1 tab(s) orally once a day PANTOPRAZOLE 40 mg delayed release tablet 1 tab(s) orally once a day FOLIC ACID 1 mg tablet 1 tab(s) orally once a day TOPAMAX 100 mg tablet 1 tab(s) orally 2 times a day VERAPAMIL 240 mg/24 hours capsule, extended release 1 cap(s) orally once a day TRIAMCINOLONE TOPICAL 0.1% ointment 1 mick applied topically 3 times a day OLOPATADINE NASAL 665 MCG/INH SPRAY 2 SPRAY(S) INTRANASALLY QDAY , Notes to Pharmacist: *Please review for potential replacement for e-prescription and drug interaction check*BREO ELLIPTA 100 mcg- 25 mcg/inh powder 1 puff(s) inhaled once a day Breo Ellipta 100 MCG-25 MCG/INH POWDER 1 PUFF(S) INHALED ONCE A DAY , Notes to Pharmacist: *Please review and pick correct strength-formulation from [employer] options. If intended option is not shown, discontinue and re-order from Quick Search*ZYRTEC 10 mg tablet 1 tab(s) orally once a day ZyrTEC Allergy 10 MG Tablet 1 tab(s) orally once a day Not-Taking/PRN CETIRIZINE 10 mg tablet 1 tab(s) orally once a day Not-Taking/PRN FLUTICASONE NASAL 50 mcg/inh spray 2 spray(s) in each nostril Qday Not-Taking/PRN FAMOTIDINE 40 mg tablet 1 tab(s) orally 30 mins prior to SCIT Not-Taking/PRN MONTELUKAST 10 mg tablet 1 tab(s) orally 30 minutes preior to SCIT Not-Taking/PRN FLONASE 0.05 mg/inh spray 2 spray(s) intranasally (avoid nasal septum) once a day Not-Taking/PRN VITAMIN D3 50 mcg tablet 1 tab(s) orally once a day Not-Taking/PRN PANTOPRAZOLE 40 mg delayed release tablet 1 tab(s) orally once a day Not-Taking/PRN FOLIC ACID 1 mg tablet 1 tab(s) orally once a day Not-Taking/PRN TOPAMAX 100 mg tablet 1 tab(s) orally 2 times a day Not- Taking/PRN VERAPAMIL 240 mg/24 hours capsule, extended release 1 cap(s) orally once a day Not-Taking/PRN TRIAMCINOLONE TOPICAL 0.1% ointment 1 mick applied topically 3 times a day Not-Taking/PRN OLOPATADINE NASAL 665 MCG/INH SPRAY 2 SPRAY(S) INTRANASALLY QDAY , Notes to Pharmacist: *Please review for potential replacement for e-prescription and drug interaction check*Not-Taking/PRN BREO ELLIPTA 100 mcg-25 mcg/inh powder 1 puff(s) inhaled once a day Not-Taking/PRN Breo Ellipta 100 MCG-25 MCG/INH POWDER 1 PUFF(S) INHALED ONCE A DAY , Notes to Pharmacist: *Please review and pick correct strength-formulation from [employer] options. If intended option is not shown, discontinue and re-order from Quick Search*Not-Taking/PRN ZYRTEC 10 mg tablet 1 tab(s) orally once a day Not-Taking/PRN ZyrTEC Allergy 10 MG Tablet 1 tab(s) orally once a day Objective: * Vitals: Assessment: * Assessment: 1. A llergic rhinitis due to pollen - J30.1 (Primary) 2 . O ther allergic rhinitis - J30.89 3 . A llergic rhinitis due to animal (cat) (dog) hair and dander - J30.81 4 . O ther chronic allergic conjunctivitis - H10.45 Plan: * Treatment: * Procedure Codes: 9 5117 IMMUNOTHERAPY INJECTIONS * Preventive Medicine: Counseling: E xercise A void heavy lifting on days of allergy immunotherapy. M edication instruction: I njectable epinephrine education and instruction w/ discussion of signs and symptoms of anaphylaxis and reasons to seek urgent or emergent care, Watch for side effects of prescribed medications. E ducation: A ble to return demonstration of self-injectable epinephrine. * Follow Up: A s scheduled * Billing Information: * Visit Code: * Procedure Codes: 55441 IMMUNOTHERAPY INJECTIONS. * Sign off status: Completed true * Provider: Juliet Paulino MD Date: 0 03/14/2025 Generated for Cordell crews/Espinoza/Carlositting on: 0 03/24/2025 07:30 AM CDT History and Physical Notes * HPI (History of Present Illness) Category Sub-Category Detail Notes Category Not es *Introduction The patient is here for scheduled immunotherapy. Please see the attached specialty form regarding the specifics of the administration of these vaccines. As per our protocol, they must undergo a screening health questionnaire (medication changes, reaction(s) to last immunotherapy dose(s), current health status, ACT (if appropriate), self-injectable epinephrine on patient(?) and peak flow (if appropriate)). Also, the patient must wait in our office for 30 minutes after receiving the vaccine(s). Furthermore, every patient must have an epinephrine pen (self-injectable) with them at the time of administration--and carry if for the following 1.5 hours after they leave our office. The patient must also have taken their antihistamine the day of the injection, preferably 2 hours prior. The consent form for SCIT (subcutaneous immunotherapy) is on file. "
--- OUTSIDE RECORDS SUMMARY | 2025-03-24 07:29 | XMS_ITS | Patient Health Record ---
Author Organization [facility] Address [address] [place] [address] Care Team Providers Care Licensed Psychologist Name Role Phone Fred Martins Unavailable [phone] Reason For Referral No Information Medications Medication SIG (Take, Route, Frequency, Duration) Notes Start Date End Date Status Topamax 100 MG take 1 tablet (100 m g) by oral route 2 times per day Oral 2 Active Cholecalciferol 50 MCG (1999 UT) take 1 capsule by oral route daily Oral 1 Active Verapamil HCl ER 240 MG take 1 capsule ( 240 mg) by oral route once daily Oral 1 Active Claritin 10 mg take 1 tablet (10 mg ) by oral route once daily Oral 1 Active Frovatriptan Succinate 2.5 MG take 1 tab let (2.5 mg) by oral route once with fluids; if headache returns, dose may be repeated at least 2 hours after the first dose, not to exceed 3 tablets (3 x 2.5 mg) in 24hrs Oral 0 Active Plan Of Treatment No Information Insurance Providers Payer Name Payer Address Payer Phone Subscriber Number Group Number Insured Name Patient Relationship to Insured Coverage Start Date Coverage End Date [employer] [address] [address] [place] [address] [id number] Chen Coats Self - patient is the insured 7 Medical (General) History Surgical History Surgery Date(Month/Year) Laparoscopy; 2017-07-10 Knee Scoped; 2017-07-10 Facial Reconstruction; 2017-07-10 Deweese Teeth; 2017-07-10 Rhinoplasty; 2017-07-10
--- OUTSIDE RECORDS SUMMARY | 2025-03-24 07:29 | XMS_ITS | Patient Health Record ---
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 Name Role Phone Jonathan Alejandra Primary Care Provider Unavailabl Cora Quan Unavailable [phone] Emery Paulino Unavailable [phone] Denita Corcoran Unavailable [phone] [facility], Provider Unavailable Unavailab le Allergies Allergen (clinical drug ingredient) Drug/Non Drug Allergy documented on EMR Reaction Allergy Type Onset Date Status Titanium TITANIUM (uncoded) hives Allergy A ctive cefdinir Cefdinir other reaction Drug Allergy Ac tive metronidazole Flagyl stomach upset Drug Allergy Active vancomycin Vancomycin rash Drug Allergy Activ e Results Component Value Reference Range Notes Spirometry Reviewed date:09/07/2024 02:07:28 PM Interpretation:Abnormal - FVL Performing Lab: Notes/Report: Abnormal - FVL SpiroPreBronchodilator_FVC 3.11 SpiroPostBronchodilator_FEF2 5_75 0 SpiroPreBronchodilator_FEF25 _75 2.83 SpiroPreBronchodilator_FEV1 2.54 SpiroPrecentPredictionPost_F EF25_75 0 SpiroPrecentPredictionPost_F EV1 0 SpiroPrecentPredictionPost_F EV1_OVER_FVC 0 SpiroPrecentPredictionPost_F VC 0 SpiroPrecentPredictionPre_FE F25_75 89 SpiroPrecentPredictionPre_FE V1 94.8 SpiroPrecentPredictionPre_FE V1_OVER_FVC 96.2 SpiroPrecentPredictionPre_FV C 99.4 SpiroPredicted_FEF25_75 3.18 SpiroPreBronchodilator_FEV1_ OVER_FVC 81.68 SpiroPreBronchodilator_PEF 6.39 SpiroPostBronchodilator_FVC 0 SpiroPostBronchodilator_FEV1 0 SpiroPostBronchodilator_FEV1 _OVER_FVC 0 SpiroPostBronchodilator_PEF 0 SpiroPredicted_FVC 3.13 SpiroPredicted_FEV1 2.68 SpiroPredicted_FEV1_OVER_FVC 84.95 SpiroPredicted_PEF 5.83 CU PANEL Reviewed date:11/07/2024 03:55:10 PM Interpretation:Abnormal Performing Lab:[facility], [facility], [address], [place], [address] Jet Chang, Director - [phone] [facility] Notes/Report: NON-FASTING BILIRUBIN, DIRECT 0.1 < OR = 0.2 mg/dL GLUCOSE 83 65-99 mg/dL Fasting reference interval UREA NITROGEN (BUN) 9 7-25 mg/dL CREATININE 0.71 0.50-0.99 mg/dL EGFR 109 > OR = 60 mL/min/1.73m2 BUN/CREATININE RATIO SEE NOTE: 6-22 (calc) Not Reported: BUN and Creatinine are within reference range. SODIUM 137 135-146 mmol/L POTASSIUM 3.8 3.5-5.3 mmol/L CHLORIDE 104 98-110 mmol/L CARBON DIOXIDE 26 20-32 mmol/L CALCIUM 8.6 8.6-10.2 mg/dL PROTEIN, TOTAL 6.2 6.1-8.1 g/dL ALBUMIN 4.1 3.6-5.1 g/dL GLOBULIN 2.1 1.9-3.7 g/dL (calc) ALBUMIN/GLOBULIN RATIO 2.0 1.0-2.5 (calc) BILIRUBIN, TOTAL 0.6 0.2-1.2 mg/dL ALKALINE PHOSPHATASE 43 31-125 U/L AST 24 10-30 U/L ALT 21 6-29 U/L SED RATE BY MODIFIED WESTERGREN 2 < OR = 20 mm/h COLOR YELLOW YELLOW APPEARANCE CLOUDY CLEAR SPECIFIC GRAVITY 1.023 1.001-1.035 PH 8.0 5.0-8.0 GLUCOSE NEGATIVE NEGATIVE BILIRUBIN NEGATIVE NEGATIVE KETONES NEGATIVE NEGATIVE OCCULT BLOOD NEGATIVE NEGATIVE PROTEIN NEGATIVE NEGATIVE NITRITE NEGATIVE NEGATIVE LEUKOCYTE ESTERASE NEGATIVE NEGATIVE WBC NONE SEEN < OR = 5 /HPF RBC NONE SEEN < OR = 2 /HPF SQUAMOUS EPITHELIAL CELLS 6-10 < OR = 5 /HPF BACTERIA MODERATE NONE SEEN /HPF HYALINE CAST 0-5 NONE SEEN /LPF WHITE BLOOD CELL COUNT 6.6 3.8-10.8 Thousand/ uL RED BLOOD CELL COUNT 4.22 3.80-5.10 Million/uL HEMOGLOBIN 12.8 11.7-15.5 g/dL HEMATOCRIT 38.9 35.0-45.0 % MCV 92.2 80.0-100.0 fL MCH 30.3 27.0-33.0 pg MCHC 32.9 32.0-36.0 g/dL For adults, a slight decrease in the calculated MCHC value (in the range of 30 to 32 g/dL) is most likely not clinically significant; however, it should be interpreted with caution in correlation with other red cell parameters and the patient's clinical condition. RDW 12.7 11.0-15.0 % PLATELET COUNT 268 140-400 Thousand/uL MPV 11.0 7.5-12.5 fL ABSOLUTE NEUTROPHILS [phone] cells/uL ABSOLUTE LYMPHOCYTES 5123 966-8056 cells/uL ABSOLUTE MONOCYTES 620 200-950 cells/uL ABSOLUTE EOSINOPHILS 119 15-500 cells/uL ABSOLUTE BASOPHILS 40 0-200 cells/uL NEUTROPHILS 58.9 LYMPHOCYTES 29.3 MONOCYTES 9.4 EOSINOPHILS 1.8 BASOPHILS 0.6 GLIADIN (DEAMIDATED) AB (IGA) 1.9 Value Interpretation ----- <15.0 Antibody not detected > or = 15.0 Antibody detected GLIADIN (DEAMIDATED) AB (IGG) <1.0 Value Interpretation ----- <15.0 Antibody not detected > or = 15.0 Antibody detected TISSUE TRANSGLUTAMINASE AB, IGG <1.0 Value Interpretation ----- <15.0 Antibody not detected > or = 15.0 Antibody detected TISSUE TRANSGLUTAMINASE AB, IGA <1.0 Value Interpretation ----- <15.0 Antibody not detected > or = 15.0 Antibody detected VIKTOR SCREEN, IFA NEGATIVE NEGATIVE VIKTOR IFA is a first line screen for detecting the presence of up to approximately 150 autoantibodies in various autoimmune diseases. A negative VIKTOR IFA result suggests an VIKTOR-associated autoimmune disease is not present at this time, but is not definitive. If there is high clinical suspicion for Sjogren's syndrome, testing for anti-SS-A/Ro antibody should be considered. Anti-Lamar-1 antibody should be considered for clinically suspected inflammatory myopathies. AC-0: Negative International Consensus on VIKTOR Patterns (https://doi.org/10.1515/c qny-6683-0983) For additional information, please refer to http://education.Vistronix/faq/GTB101 (This link is being provided for informational/ educational purposes only.) IMMUNOGLOBULIN A 292 47-310 mg/dL RHEUMATOID FACTOR <10 <14 IU/mL ENDOMYSIAL ANTIBODY SCR (IGA) W/REFL TO TITER NEGATIVE NEGATIVE IMMUNOGLOBULIN E 56 <EK=713 kU/L TSH W/REFLEX TO FT4 1.03 Reference Range > or = 20 Years 0.40-4.50 Ranges First trimester 0.26-2.66 Second trimester 0.55-2.73 Third trimester 0.43-2.91 CHRONIC URTICARIA Reviewed date:10/31/2024 11:42:17 AM Interpretation:Normal Performing Lab:EZ, [facility],, [address] [place], [address] Dinah Cano MD,PhD,VIKI Notes/Report: NON-FASTING HISTAMINE RELEASE (CHRONIC URTICARIA) <16 <16 % This test was developed and its analytical performance characteristics have been determined by [facility]. It has not been cleared or approved by FDA. This assay has been validated pursuant to the CLIA regulations and is used for clinical purposes. THYROID PEROXIDASE ANTIBODIES 1 <9 IU/mL THYROGLOBULIN ANTIBODIES <1 < OR = 1 IU/mL TSH 1.06 0.40-4.50 mIU/L Female Reference Ranges for TSH: Premature Infants, (28-36) weeks 1st week of life 0.20-27.90 mIU/L Term infants, (>37 weeks) Serum or Cord Blood 1.00-39.00 mIU/L 1-2 days 3.20-34.60 mIU/L 3-4 days 0.70-15.40 mIU/L 5 days-4 weeks 1.70-9.10 mIU/L 1-11 months 0.80-8.20 mIU/L 1-19 years 0.50-4.30 mIU/L > or = 20 years 0.40-4.50 mIU/L TSH levels decline rapidly during the first week of life in most children, but may remain transiently elevated in a few individuals despite normal free T4 levels. For proper interpretation of an abnormal TSH from a thyroid screen, a Free T4 by [place]ialysis (TC [address]) or T4, Total (Thyroxine) (TC [address]) should be considered. Ranges First Trimester 0.26-2.66 mIU/L Second Trimester 0.55-2.73 mIU/L Third Trimester 0.43-2.91 mIU/L For additional information, please refer to http://education.Yammer.[place]maha/faq/OVG121 (This link is being provided for informational/educational purposes only.) TRYPTASE Reviewed date:10/31/2024 11:41:53 AM Interpretation:Normal Performing Lab:AMD, [facility], [address], [place], [address] Emery Mejía M.D.,PhD Notes/Report: NON-FASTING TRYPTASE 2.9 <11.0 mcg/L The Tryptase test, fluorescent enzyme immunoassay (FEIA), measures both the Alpha and Beta forms of Tryptase. Measuring both forms of Tryptase increases sensitivity for the diagnosis of mastocytosis, and mast cell degranulation as a cause of anaphylaxis. ANTI-IGE Reviewed date:10/31/2024 11:41:43 AM Interpretation:Normal Performing Lab:EZ, [facility],, [address] [place], [address] Dinah Cano MD,PhD,VIKI Notes/Report: NON-FASTING IGE ANTIBODY (ANTI IGE IGG) 6 <168 ng/mL This test was developed and its analytical performance characteristics have been determined by [facility]. It has not been cleared or approved by FDA. This assay has been validated pursuant to the CLIA regulations and is used for clinical purposes. Reason For Referral Referring Provider First Name Stella Referring Provider Last Name Fletcher Referred Organization [facility] Referred Provider Cora Schmitt Referred Address [address] [place] [phone], Referred Provider Specialty Allergy/Immu nology Referral Priority Routine Medications Medication SIG (Take, Route, Frequency, Duration) Notes Start Date End Date Status Fluticasone-Salmet jodi 230-21 MCG/ACT 2 puffs Inhalation Twice a day Switched from Wixela DPI to HFA per [facility] due to thrush. Resent due to error on code. Resending under shortness of breath and with correct dosing. Active TOPAMAX 100 mg 1 tab(s) orally 2 times a day for 30 day(s) Not-Taking SIT (TRADITIONAL) variable per schedule SC per schedule for 999 days Active FOLIC ACID 1 mg 1 tab(s) orally once a day for 30 day(s) Not-Taking Cetirizine HCl 10 MG 1 tab(s) orally once a day for 30 days Active TRIAMCINOLONE TOPICAL 0.1% 1 mick applied topically 3 times a day for 7 days 3 Not-Taking EpiPen 2-Enrique 0.3 mg as directed intramuscularly once for 30 days Active VERAPAMIL 240 mg/24 hours 1 cap(s) orally once a day for 30 day(s) Not-Taking Montelukast Sodium 10 MG 1 tab(s) orally 30 minutes preior to SCIT for 30 days Active BREO ELLIPTA 100 mcg-25 mcg/inh 1 puff(s) inhaled once a day for 30 days Not-Taking Fluticasone Propionate 50 MCG/ACT 1 spray in each nostril in each nostril Qday for 30 days Active OLOPATADINE NASAL 665 MCG/INH 2 SPRAY(S) INTRANASALLY QDAY for 30 DAYS *Please review for potential replacement for e-prescription and drug interaction check* Not-Taking SIT (CLUSTER) VARIABLE PER SCHEDULE SC PER SCHEDULE for 999 DAYS *Please review for potential replacement for e-prescription and drug interaction check* Active Flonase Allergy Relief 50 MCG/ACT 2 spray(s) intranasally (avoid nasal septum) once a day for 30 day(s) Active Breo Ellipta 100 MCG-25 MCG/INH 1 PUFF(S) INHALED ONCE A DAY for 30 DAYS *Please review and pick correct strength-formulation from [email or web address].fm options. If intended option is not shown, discontinue and re-order from Quick Search* Not-Taking FLONASE 0.05 mg/inh 2 spray(s) intranasally (avoid nasal septum) once a day for 30 day(s) Not-Taking FAMOTIDINE 40 mg 1 tab(s) orally Twice a day for 30 days Active MONTELUKAST 10 mg 1 tab(s) orally once a day for 30 days Active PANTOPRAZOLE 40 mg 1 tab(s) orally once a day for 30 day(s) Not-Taking VITAMIN D3 50 mcg 1 tab(s) orally once a day for 30 day(s) Not-Taking NASAL WASHES N/A as directed intranasally as needed for 30 days Active OLOPATADINE NASAL 665 mcg/inh 2 spray(s) intranasally Qday for 30 days Active Verapamil HCl ER 240 MG 1 cap(s) orally once a day for 30 day(s) Active Topamax 100 MG 1 tab(s) orally 2 times a day for 30 day(s) Active Triamcinolone Acetonide 0.1 % 1 mick applied topically 3 times a day for 7 days 3 Active predniSONE 20 MG 1 tablet Orally Once a day Active Famotidine 40 mg 1 tab(s) orally Twice a day for 30 days Active EpiPen 2-Enrique 0.3 MG/0.3ML as directed Injection Yes, generic adrenaclick is ok. Active AEROCHAMBER MDI SPACER - MOUTHPIECE (ADULT) N/A As directed PO Per asthma action plan for 30 day(s) Active FLUTICASONE NASAL 50 mcg/inh 2 spray(s) in each nostril Qday for 30 day(s) Not-Taking ALBUTEROL (EQV-PROAIR HFA) 90 mcg/inh 2 puff(s) inhaled every 6 hours for 30 days Active CETIRIZINE 10 mg 1 tab(s) orally once a day for 30 days Not-Taking FLUTICASONE NASAL 50 mcg/inh 1 spray(s) in each nostril Qday for 30 days Active MONTELUKAST 10 mg 1 tab(s) orally 30 minutes preior to SCIT for 30 days Not-Taking CETIRIZINE 10 mg 1 tab(s) orally Twice a day for 30 days Active FAMOTIDINE 40 mg 1 tab(s) orally 30 mins prior to SCIT for 30 days Not-Taking ZyrTEC Allergy 10 MG 1 tab(s) orally once a day Not-Taking ZYRTEC 10 mg 1 tab(s) orally once a day Not-Taking Folic Acid 1 MG 1 tab(s) orally once a day for 30 day(s) Active Famotidine 20 MG 1 tablet at bedtime as needed Orally Once a day for 90 days 5 Active Pantoprazole Sodium 40 MG 1 tab(s) orally once a day for 30 day(s) Active Montelukast Sodium 10 MG 1 tablet Orally Once a day for 90 days 5 Active Vitamin D3 50 MCG 1 TAB(S) ORALLY ONCE A DAY for 30 DAY(S) *Please review and pick correct strength-formulation from [email or web address].fm options. If intended option is not shown, discontinue and re-order from Quick Search* Active Immunizations Vaccine Route Administration Date Status Comme nts NOC Pneumovax 23 IM Intramuscular 08/26/2023 Administered Exp [id number] NOC PedvaxHIB IM Intramuscular 08/26/2023 Administered NOC PedvaxHIB IM Intramuscular 12/14/2023 Administered Social History Tobacco Use: Social History Observation Description Date Details (start date - stop date) Never Smoker NA - NA Sex Assigned At : Social History Observation Description Sex Assigned At Female Tobacco Control (Standard) Question Answer Notes Tobacco use: Nonsmoker AUDIT-C (Standard) Question Answer Notes Did you have a drink containing alcohol in the p ast year? No Points 0 Interpretation Negative Problems Problem Type SNOMED Code ICD Code Onset Dates Problem Status W/U Status Risk Notes Problem Chronic allergic conjunctivitis (62065560) Other chronic allergic conjunctivitis (H10.45) Active confirmed Problem Allergic rhinitis caused by pollen (disorder) (14710801) Allergic rhinitis due to pollen (J30.1) Active confirmed Problem Allergic rhinitis (10014123) Other allergic rhinitis (J30.89) Active confirmed Problem Inflammatory condition of oral mucous membrane (52842962) Oral mucositis (ulcerative), unspecified (K12.30) Active confirmed Problem Urticaria (065232779) Other urticaria (L50.8) Active confirmed Problem Allergic rhinitis caused by animal hair and dander (912691257779963) Allergic rhinitis due to animal (cat) (dog) hair and dander (J30.81) Active confirmed Problem Eruption of skin (461438263) Rash and other nonspecific skin eruption (R21) Active confirmed Problem Chronic sinusitis (82538984) Other chronic sinusitis (J32.8) Active confirmed Problem Wheezing (85997898) Wheezing (R06.2) Active confirmed Problem Allergy to penicillin (79159149) Allergy status to penicillin (Z88.0) Active confirmed Problem Gastro-esophageal reflux disease without esophagitis (820288524) Gastro-esophageal reflux disease without esophagitis (K21.9) Active confirmed Problem Disorder of vocal cord (91097172) 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) Active confirmed Problem Shortness of breath (210229365) Shortness of breath (R06.02) Active confirmed Problem Chronic cough (19544459) Chronic cough (R05.3) Active confirmed Vital Signs Oximetry 99 % 02/21/2025 Blood pressure diastolic 82 mm Hg 02/21/2025 Height 61 in 02/21/2025 Blood pressure systolic 128 mm Hg 02/21/2025 Weight 135.4 lbs 11/10/2024 BMI 25.58 kg/m2 11/10/2024 Encounters Encounter Location Date Provider Diagnosis [address] [phone] 04/23/2024 Provider [facility] Allergic rhinitis due to pollen J30.1 and Shortness of breath R06.02 [facility] [address] [place] [address] 04/13/2024 Cora Schmitt Allergic rhinitis du e to pollen J30.1 ; Allergic rhinitis due to animal (cat) (dog) hair and dander J30.81 ; Other allergic rhinitis J30.89 ; Other chronic allergic conjunctivitis H10.45 ; Shortness of breath R06.02 ; Wheezing R06.2 ; Chronic cough R05.3 ; Other chronic sinusitis J32.8 ; Other diseases of vocal cords J38.3 ; Rash and other nonspecific skin eruption R21 ; Adverse effect of cephalosporins and other beta-lactam antibiotics, subsequent encounter T36.1X5D ; Adverse effect of other drugs, medicaments and biological substances, subsequent encounter T50.995D and Elevated blood-pressure reading, without diagnosis of hypertension R03.0 [facility] [address] [place] [phone] 05/11/2024 Emery Paulino Allergic rhinitis du e to pollen J30.1 ; Other allergic rhinitis J30.89 ; Allergic rhinitis due to animal (cat) (dog) hair and dander J30.81 and Other chronic allergic conjunctivitis H10.[address] [address] 06/15/2024 Emery Paulino Allergic rhinitis du e to pollen J30.1 ; Other allergic rhinitis J30.89 ; Allergic rhinitis due to animal (cat) (dog) hair and dander J30.81 and Other chronic allergic conjunctivitis H10.[address] [address] 07/12/2024 Emery Paulino Allergic rhinitis du e to pollen J30.1 ; Other allergic rhinitis J30.89 ; Allergic rhinitis due to animal (cat) (dog) hair and dander J30.81 and Other chronic allergic conjunctivitis H10.[address] [address] 08/10/2024 Cora Schmitt Allergic rhinitis du e to pollen J30.1 ; Allergic rhinitis due to animal (cat) (dog) hair and dander J30.81 ; Other allergic rhinitis J30.89 ; Other chronic allergic conjunctivitis H10.45 ; Shortness of breath R06.02 ; Wheezing R06.2 ; Chronic cough R05.3 ; Candidiasis, unspecified B37.9 ; Other chronic sinusitis J32.8 ; Other diseases of vocal cords J38.3 ; Rash and other nonspecific skin eruption R21 ; Adverse effect of cephalosporins and other beta-lactam antibiotics, subsequent encounter T36.1X5D and Adverse effect of other drugs, medicaments and biological substances, subsequent encounter T50.995D [address] [employer] [address] [address] 09/07/2024 Cora Schmitt Allergic rhinitis du e to pollen J30.1 ; Allergic rhinitis due to animal (cat) (dog) hair and dander J30.81 ; Other allergic rhinitis J30.89 ; Other chronic allergic conjunctivitis H10.45 ; Shortness of breath R06.02 ; Wheezing R06.2 ; Chronic cough R05.3 ; Candidiasis, unspecified B37.9 ; Other chronic sinusitis J32.8 ; Other diseases of vocal cords J38.3 ; Rash and other nonspecific skin eruption R21 ; Adverse effect of cephalosporins and other beta-lactam antibiotics, subsequent encounter T36.1X5D and Adverse effect of other drugs, medicaments and biological substances, subsequent encounter T50.995D [address] [employer] [address] [address] 09/28/2024 Cora Schmitt Other urticaria L50. 8 ; Localized swelling, mass and lump, unspecified R22.9 ; Oral mucositis (ulcerative), unspecified K12.30 ; Allergic rhinitis due to pollen J30.1 ; Allergic rhinitis due to animal (cat) (dog) hair and dander J30.81 ; Other allergic rhinitis J30.89 ; Other chronic allergic conjunctivitis H10.45 ; Shortness of breath R06.02 ; Wheezing R06.2 ; Chronic cough R05.3 ; Candidiasis, unspecified B37.9 ; Other chronic sinusitis J32.8 ; Other diseases of vocal cords J38.3 ; Rash and other nonspecific skin eruption R21 ; Adverse effect of cephalosporins and other beta-lactam antibiotics, subsequent encounter T36.1X5D and Adverse effect of other drugs, medicaments and biological substances, subsequent encounter T50.995D [address] [employer] [address] [address] 10/11/2024 Emery Paulino Allergic rhinitis du e to pollen J30.1 ; Other allergic rhinitis J30.89 ; Allergic rhinitis due to animal (cat) (dog) hair and dander J30.81 and Other chronic allergic conjunctivitis H10.[address] [employer] [address] [address] 11/10/2024 Cora Keshia Other urticaria L50. 8 ; Localized swelling, mass and lump, unspecified R22.9 ; Oral mucositis (ulcerative), unspecified K12.30 ; Allergic rhinitis due to pollen J30.1 ; Allergic rhinitis due to animal (cat) (dog) hair and dander J30.81 ; Other allergic rhinitis J30.89 ; Other chronic allergic conjunctivitis H10.45 ; Shortness of breath R06.02 ; Wheezing R06.2 ; Chronic cough R05.3 ; Candidiasis, unspecified B37.9 ; Other chronic sinusitis J32.8 ; Other diseases of vocal cords J38.3 ; Gastro-esophageal reflux disease without esophagitis K21.9 ; Rash and other nonspecific skin eruption R21 ; Adverse effect of cephalosporins and other beta-lactam antibiotics, subsequent encounter T36.1X5D and Adverse effect of other drugs, medicaments and biological substances, subsequent encounter T50.995D [facility] [address] [place] [phone] 12/06/2024 Emery Paulino Allergic rhinitis du e to pollen J30.1 ; Other allergic rhinitis J30.89 ; Allergic rhinitis due to animal (cat) (dog) hair and dander J30.81 and Other chronic allergic conjunctivitis H10.45 [facility] [address] [place] [phone] 01/03/2025 Emery Paulino Allergic rhinitis du e to pollen J30.1 ; Other allergic rhinitis J30.89 ; Allergic rhinitis due to animal (cat) (dog) hair and dander J30.81 and Other chronic allergic conjunctivitis H10.45 [facility] [address] [place] [address] [facility] [address] [address] 01/31/2025 Emery Paulino Allergic rhinitis du e to pollen J30.1 ; Other allergic rhinitis J30.89 ; Allergic rhinitis due to animal (cat) (dog) hair and dander J30.81 and Other chronic allergic conjunctivitis H10.[address] [address] 02/21/2025 Denita Corcoran Other urticaria L50. 8 ; Localized swelling, mass and lump, unspecified R22.9 ; Oral mucositis (ulcerative), unspecified K12.30 ; Allergic rhinitis due to pollen J30.1 ; Allergic rhinitis due to animal (cat) (dog) hair and dander J30.81 ; Other allergic rhinitis J30.89 ; Other chronic allergic conjunctivitis H10.45 ; Shortness of breath R06.02 ; Wheezing R06.2 ; Chronic cough R05.3 ; Candidiasis, unspecified B37.9 ; Other chronic sinusitis J32.8 ; Other diseases of vocal cords J38.3 ; Gastro-esophageal reflux disease without esophagitis K21.9 ; Rash and other nonspecific skin eruption R21 ; Adverse effect of cephalosporins and other beta-lactam antibiotics, subsequent encounter T36.1X5D and Adverse effect of other drugs, medicaments and biological substances, subsequent encounter T50.995D [facility] [address] [place] [phone] 02/28/2025 Emery Paulino Allergic rhinitis du e to pollen J30.1 ; Other allergic rhinitis J30.89 ; Allergic rhinitis due to animal (cat) (dog) hair and dander J30.81 and Other chronic allergic conjunctivitis H10.45 [facility] [address] [place] [phone] 03/07/2025 Emery Paulino Allergic rhinitis du e to pollen J30.1 ; Other allergic rhinitis J30.89 ; Allergic rhinitis due to animal (cat) (dog) hair and dander J30.81 and Other chronic allergic conjunctivitis H10.[address] [address] 03/14/2025 Emery Paulino Allergic rhinitis du e to pollen J30.1 ; Other allergic rhinitis J30.89 ; Allergic rhinitis due to animal (cat) (dog) hair and dander J30.81 and Other chronic allergic conjunctivitis H10.[address] [address] 08/09/2024 Cora Schmitt [address] [address] 08/17/2024 Cora Schmitt [address] [place] [address] 09/21/2024 Cora Schmitt [facility] [address] [place] [phone] 09/21/2024 Cora Schmitt [facility] [address] [place] [address] 02/22/2025 Cora Schmitt Allergic rhinitis du e to pollen J30.[address] [address] 03/08/2025 Cora Schmitt Allergic rhinitis du e to pollen J30.[address] [address] 03/08/2025 Cora Schmitt Allergic rhinitis du e to pollen J30.1 [facility] [address] [place] [phone] 02/20/2025 Cora Schmitt Assessments Encounter Date Diagnosis (ICD Code) Assessment Notes Treatment Notes Treatment Clinical Notes Section Notes 04/13/2024 Allergic rhinitis due to pollen (ICD-10 - J30.1) Maral clearly suffers from atopic disease based upon our skin testing and history. Accordingly, we have encouraged her medication regimen, discussed nasal washes and allergy-specific avoidance measures. She is tolerating SCIT. Previously reporting occasional large, local reactions despite triple premedication. She treats wtih additional antihistamines, TAC and ice with resolution of symptoms. This occurs at random. -Dosing was tolerated without large local or systemic reaction. -Continue medication regimen as listed above. -Continue triple premedication. Continue additional anithistamines, TAC and ice for large,local reactions. Encouraged to take pictures and notify office of any further LLR occur. -Follow-up as scheduled for SCIT and 6 months further evaluation and management 04/13/2024 Allergic rhinitis due to animal (cat) (dog) hair and dander (ICD-10 - J30.81) Follow allergen avoidance, meds and continue SCIT as an adjunctive treatment to current regimen 04/23/2024 Allergic rhinitis due to pollen (ICD-10 - J30.1) 05/11/2024 Allergic rhinitis due to pollen (ICD-10 - J30.1) 05/11/2024 Other allergic rhinitis (ICD-10 - J30.89) 06/15/2024 Allergic rhinitis due to pollen (ICD-10 - J30.1) 06/15/2024 Other allergic rhinitis (ICD-10 - J30.89) 07/12/2024 Allergic rhinitis due to pollen (ICD-10 - J30.1) 08/10/2024 Allergic rhinitis due to pollen (ICD-10 - J30.1) Maral clearly suffers from atopic disease based upon our skin testing and history. Accordingly, we have encouraged her medication regimen, discussed nasal washes and allergy-specific avoidance measures. She is tolerating SCIT. Previously reporting occasional large, local reactions despite triple premedication. She treats wtih additional antihistamines, TAC and ice with resolution of symptoms. This occurs at random. -Dosing was tolerated without large local or systemic reaction. -Continue medication regimen as listed above. -Continue triple premedication. Continue additional antihistamines, TAC and ice for large,local reactions. Encouraged to take pictures and notify office if any further LLR occur. -Follow-up as scheduled for SCIT and 6 months further evaluation and management 08/10/2024 Allergic rhinitis due to animal (cat) (dog) hair and dander (ICD-10 - J30.81) Follow allergen avoidance, meds and continue SCIT as an adjunctive treatment to current regimen 07/12/2024 Other allergic rhinitis (ICD-10 - J30.89) 09/07/2024 Allergic rhinitis due to pollen (ICD-10 - J30.1) Maral clearly suffers from atopic disease based upon our skin testing and history. Accordingly, we have encouraged her medication regimen, discussed nasal washes and allergy-specific avoidance measures. She is tolerating SCIT. Previously reporting occasional large, local reactions despite triple premedication. She treats wtih additional antihistamines, TAC and ice with resolution of symptoms. This occurs at random. -Dosing was tolerated without large local or systemic reaction. -Continue medication regimen as listed above. Recommend decreasing Flonase to one spray each nostril daily. Proper demonstration given. -Continue triple premedication. Continue additional antihistamines, TAC and ice for large,local reactions. Encouraged to take pictures and notify office if any further LLR occur. -Follow-up as scheduled for SCIT and 6 months further evaluation and management 09/07/2024 Allergic rhinitis due to animal (cat) (dog) hair and dander (ICD-10 - J30.81) Follow allergen avoidance, meds and continue SCIT as an adjunctive treatment to current regimen 09/28/2024 Other urticaria (ICD-10 - L50.8) Maral reports a noticeable hive and itching that began on 09/20/24 at 2:30pm. Around 4:00pm, reported right ringer finger swelling and throat was tickling. Symptoms resolved, but returned the next day when she noted similar raised, welts to face with associated swelling. Symptoms would resolve within 1 hour, but rash would migrate to a different are of body. She was treated at urgent care with IM steroid injection and pepcid BID. She woke up Thursday and still felt face was swollen so was evaluated by PCP. Additionally, felt she had several cancar sores in mouth. PCP gave additional steroid injection, prescribed a steroid taper and ordered blood work. She continues on steroid taper, still has 4 days left. Today, reports no hives, itching, swelling, just one healing cankar sore in mouth. Maral admits to occasional hives approximately once per year for the past 10 years, always attributed to being outdoors. This was the first episode of onset of hives while indoors. Labs on phone show elevated ch50 and several abnormalities with neutrophils, lymphocytes, but she was on steroids when obtained. She is leaving for [place] today with plans to return in one week. Pictures viewed on phone c/w urticaria and swelling noted to right 4th finger. - History, presentation, pictures, and timeframe of symptoms > 6 weeks c/w chronic idiopathic urticaria. - Recommend completing steroid taper. If hives return, plan on 4x FDA approved dosing of antihistamines for > 4 weeks. Instructed patient to start Zyrtec 10mg BID, Pepcid 40mg BID, Singulair 10mg at night if hives return. - If breakthrough continues despite this treatment, consider Xolair - Instructed to carry AIE at all times. - Will order laboratory workup for further evaluation. Per labs obtained, normal C4, C1 functional, negative IVKTOR. Patient will obtain when she comes back from [place]. - Educational handout to be provided at follow-up. - Encouraged toa void NSAIDs, alcohol and opioids as these can exacerbate symptoms. - Follow-up in 1 month for E&M, laboratory review. 09/28/2024 Localized swelling, mass and lump, unspecified (ICD-10 - R22.9) As stated above. 10/11/2024 Allergic rhinitis due to pollen (ICD-10 - J30.1) 10/11/2024 Other allergic rhinitis (ICD-10 - J30.89) 11/10/2024 Other urticaria (ICD-10 - L50.8) Maral reports a noticeable hive and itching that began on 09/20/24 at 2:30pm. Around 4:00pm, reported right ringer finger swelling and throat was tickling. Symptoms resolved, but returned the next day when she noted similar raised, welts to face with associated swelling. Symptoms would resolve within 1 hour, but rash would migrate to a different are of body. She was treated at urgent care with IM steroid injection and pepcid BID. She woke up Thursday and still felt face was swollen so was evaluated by PCP. Additionally, felt she had several cancar sores in mouth. PCP gave additional steroid injection, prescribed a steroid taper and ordered blood work. She completed steroid taper. Labs on phone show elevated ch50 and several abnormalities with neutrophils, lymphocytes, but she was on steroids when obtained. Pictures viewed on phone c/w urticaria and swelling noted to right 4th finger. After last visit, she started Zyrtec BID, Pepcid BID and Singulair 10mg. She reports taking for 1 week after last visit, then all hives/swelling resolved. Now on Zyrtec BID with no interval hives or swelling since 09/2024. CU workup ordered and all WNL, except for presumed contaminated UA. Labs viewed on phone show normal UA from 11/03/24. Current products consist of All free and clear laundry detergent, no dryer sheets, Husk shampoo and conditioner, Dove body wash, Secret hypoallergenic deodarant., CeraVe moisturizer. She admits to hair dye yearly, doesnot receive manicures. She does not use makeup. She uses Aleve rarely, denies opioid or alchohol use. - History, presentation, pictures, and timeframe of symptoms > 6 weeks c/w chronic idiopathic urticaria. - Patient currently on Zyrtec BID at this time. No interval hives in 6 weeks, will plan to decrease to daily Zyrtec at this time. Instructed to take pictures and notify office if hives and/or swelling return. - Consider Xolair for breaktrhough symptoms on triple therapy - only on Zyrtec BID at this time. - Instructed to carry AIE at all times - current AIE . Refill sent. - Laboratory evaluation showed normal tryptase, kidney/liver function, TSH. Negative VIKTOR. Concern for contaminated UA, but has results from UA on 11/03/24 WNL. - Educational handout to be provided at follow-up. - Encouraged to avoid NSAIDs, alcohol and opioids as these can exacerbate symptoms. - Follow-up in 3 months for E&M 11/10/2024 Localized swelling, mass and lump, unspecified (ICD-10 - R22.9) As stated above. 12/06/2024 Allergic rhinitis due to pollen (ICD-10 - J30.1) 12/06/2024 Other allergic rhinitis (ICD-10 - J30.89) 01/03/2025 Allergic rhinitis due to pollen (ICD-10 - J30.1) 01/03/2025 Other allergic rhinitis (ICD-10 - J30.89) 01/31/2025 Allergic rhinitis due to pollen (ICD-10 - J30.1) 01/31/2025 Other allergic rhinitis (ICD-10 - J30.89) 02/21/2025 Other urticaria (ICD-10 - L50.8) Maral reports a noticeable hive and itching that began on 09/20/24 at 2:30pm. Around 4:00pm, reported right ringer finger swelling and throat was tickling. Symptoms resolved, but returned the next day when she noted similar raised, welts to face with associated swelling. Symptoms would resolve within 1 hour, but rash would migrate to a different are of body. She was treated at urgent care with IM steroid injection and Pepcid BID. She woke up Thursday and still felt face was swollen so was evaluated by PCP. Additionally, felt she had several canker sores in mouth. PCP gave additional steroid injection, prescribed a steroid taper and ordered blood work. She completed steroid taper. Labs on phone show elevated ch50 and several abnormalities with neutrophils, lymphocytes, but she was on steroids when obtained. Pictures viewed on phone c/w urticaria and swelling noted to right 4th finger. After this visit she started Zyrtec BID, Pepcid BID and Singulair 10mg. She reports taking for 1 week after last visit, then all hives/swelling resolved. She returns today with complaints of generalized urticaria over the weekend, admits to URI the past 1-2 weeks. She was treated with Augmentin, urticaria occurring the following day. Her PCP is concerned for allergy to clavulante acid. CU workup ordered and all WNL, except for presumed contaminated UA. Labs viewed on phone show normal UA from 11/03/24. Current products consist of All free and clear laundry detergent, no dryer sheets, Husk shampoo and conditioner, Dove body wash, Secret hypoallergenic deodorant., CeraVe moisturizer. She admits to hair dye yearly, doesnot receive manicures. She does not use makeup. She uses Aleve rarely, denies opioid or alchohol use. - History, presentation, pictures, and timeframe of symptoms > 6 weeks c/w chronic idiopathic urticaria. - Due to recent symptoms, restart Zyrtec 10 mg BID, Pepcid 20 mg BID and Singulair 10 mg at night. - We discussed today that Maral's illness likely triggered her hive flare. With that said, Maral reports her PCP is now hesitant to prescribe Augmentin due to concerns for allergy to clavulanic acid. We discussed that timeline is atypical for an IgE-mediated hypersensitivity reaction. I will discuss with Dr. Paulino. We could consider a dose-challenge in-office. - Consider Xolair for breakthrough symptoms on triple therapy, which we restarted today. - Instructed to carry AIE at all times - current AIE . Refill sent. - Prior laboratory evaluation showed normal tryptase, kidney/liver function, TSH. Negative VIKTOR. Concern for contaminated UA, but has results from UA on 11/03/24 WNL. - Encouraged to avoid NSAIDs, alcohol and opioids as these can exacerbate symptoms. - Follow-up in 1 month further evaluation and management 02/21/2025 Localized swelling, mass and lump, unspecified (ICD-10 - R22.9) As stated ab [id number]||2025-03-24 08:24:00|MM_ITS|BURKT|Imaging|[id number]|"EXAMINATION: MM screening evy BI w jose eduardo HISTORY: Screening TECHNIQUE: Craniocaudal and mediolateral oblique 3-D tomosynthesis images were obtained and synthetic 2-D images were generated. CAD analysis was submitted and interpreted. COMPARISON: 04/30/2023 BREAST PARENCHYMAL COMPOSITION: Dense: The breasts are extremely dense, which lowers the sensitivity of mammography. FINDINGS: There is no evidence of suspicious mass, calcification, or architectural distortion to sugg est malignancy in either breast. There has been no suspicious interval change. IMPRESSION: 1. No mammographic evidence of malignancy. 2. Recommend routine screening mammography in one year. BI-RADS Category 1: Negative Reviewed, dictated and finalized at location A. IMPRESSION: 1. No mammographic evidence of malignancy. 2. Recommend routine screening mammography in one year. BI-RADS Category 1: Negative "
--- OUTSIDE RECORDS SUMMARY | 2025-03-24 07:30 | XMS_ITS | Clinical Summary ---
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 Gender Identity Not on file Sexual Orientation Not on file Plan of Treatment Health Maintenance Due Date Last Done Comments Cervical Cancer Screening Pa p Smear (Age 30 to 64) Every 3 Years 1982 Annual Physical 1985 Hepatitis C 2000 DTaP, Tdap and Td Vaccines ( 1 - Tdap) 2001 Hepatitis B Vaccines (1 of 3 - 19+ 3-dose series) 2001 Cervical Cancer Screening Pa p with HPV Testing (Age 30 to 64) Every 5 Years 2012 Cervical Cancer Screening with HPV 2012 Mammogram Screening 2022 COVID-19 Vaccine (2023-2 5 season) 2024 HPV Vaccines Aged Out No longer eligi ble based on patient's age to complete this topic Meningococcal B Vaccine Aged Out No l onger eligible based on patient's age to complete this topic Meningococcal Vaccine Aged Out No gerber ruel eligible based on patient's age to complete this topic Pneumococcal Vaccine: Pediat rics (0 to 5 Years) and At-Risk Patients (6 to 49 Years) Aged Out No longer eligible b ased on patient's age to complete this topic RSV Immunizations Under 20 Months Aged Out No longer eligible based on patient's age to complete this topic Insurance [facility] Care Teams Finger Grip Machine Operator Relationship Specialty Start Date End Date Jonathan Alejandra MD [address] [place] [address] PCP - General INTERNAL MEDICINE 11/29/19
--- OUTSIDE RECORDS SUMMARY | 2025-03-24 07:30 | XMS_ITS | Continuity of Care Document ---
Author Organization [facility] Address [address] [place] [address] Phone Care Team Providers Care Product Lister Name Role Phone Brian Mccrary MD Unavailable Unavailable Advance Directives Directive Yes / No Effective Date File Name No Information Encounters Encounter Description Practice Location Reason(s) For Visit Diagnoses Date Provider Providers Copied on Encounter [facility], [address], [place], [place], [id number], tel:[phone] [facility] No Information Hermann Torres. [address] , [place], [place], [id number], [place]. tel:[phone] Referring Provider: [facility] [address], [place], [address]. tel:[phone] Family History Family Member Type Diagnosis Age At Onset No Information Payers Payer name Insurance type Covered constitution party ID Authoriza timarely(s) [facility] CI [id number] Social History Type Description Quantity Date Captured [...]
--- OUTSIDE RECORDS SUMMARY | 2025-03-24 07:30 | XMS_ITS ---
Author Organization [facility] ([address]) Address [address] [place] [address] Care Team Providers Care Motor And Generator Brush Cutter Name Role Phone Jonathan Alejandra Primary Care Provider Cora Montesinos Unavailable [phone] Medications Medication SIG (Take, Route, Frequency, Duration) Notes Start Date End Date Status Triamcinolone Acetonide 0.1 % 1 mick applied topically 3 times a day for 7 days 09/30/2023 Active Social History Sex Assigned At : Social History Observation Description Sex Assigned At Female Encounters Encounter Location Date Provider Diagnosis [address] [address] 03/08/2025 Cora Schmitt Allergic rhinitis due to pollen J30.1 Assessments Encounter Date Diagnosis (ICD Code) Assessment Notes Treatment Notes Treatment Clinical Notes Section Notes 03/08/2025 Allergic rhinitis due to pollen (ICD-10 - J30.1) Plan Of Treatment Medication Medication Name Sig Start Date Stop Date Notes Triamcinolone Acetonide 0.1 % 1 mick appl ied topically 3 times a day for 7 days 09/30/2023 Next Appt Details Provider Name:Emery Paulino , 04/18/2025 03:00:00 PM, [address], [address], [place], [address], Progress Notes * Chen COATS LDOB:[birth year] (44 yo F)Acc No.[id number]:03/08/2025 Patient: Rafa PONCELOUNICHOLAS Chen Amita :1980 A ge:44 Y S ex:Female Address:[address] [place] [id number] * Refills Refill Triamcinolone Acetonide Ointment, 0.1 %, applied topically, 60, 1 mick, 3 times a day, 7 days, Refills=0 * true * Date: Generated for Cordell crews/Espinoza/Carlositting on: 0 03/24/2025 07:29 AM CDT
--- OUTSIDE RECORDS SUMMARY | 2025-03-24 07:30 | XMS_ITS | Clinical Summary ---
Author Organization [facility] Address [address] [place] [address] Phone Care Team Providers Care Stewardess Supervisor Name Role Phone Jonathan Alejandra MD Primary Care Provider [phone] Allergies Active Allergy Reactions Criticality Noted Date Comments Amoxicillin-Pot Clavulanate Other (see Comments) 08/24/2021 difficulty swallowing Cefdinir Anaphylaxis,Shortne ss of Breath,Swelling,Unk nown High 05/07/2005 Iodinated Contrast Media Other (see Comments) 08/24/2021 blacked out Metronidazole Nausea 08/24/2021 irritated stomach Penicillins Anaphylaxis,Swellin g,Unknown Medium 12/27/2002 Patient stated she tested negative for a penicillin allergy january of 2024 Rizatriptan Other (see Comments) Low 11/19/2017 Unable to take Sumatriptan Other (see Comments) Low 11/19/2017 Unable to take Vancomycin Rash 08/24/2021 Medications verapamil (CALAN-SR) 240 MG Tablet Controlled Release 06/07/2021 Active topiramate (TOPAMAX) 100 MG Tablet Take 100 mg by mouth daily. 11/16/2017 Active Cholecalciferol 50 mcg Tablet Take 2,000 Units by mouth. Active Cetirizine HCl (ZYRTEC PO) Take by mouth. Active Ergocalciferol (VITAMIN D2 PO) take 1 capsule by oral route every week 10/20/2014 Active albuterol 108 (90 Base) MCG/ACT Aerosol Solution 2 puff(s) inhaled every 6 hours for 30 days Active FOLIC ACID PO Take by mouth. Active predniSONE (DELTASONE) 10 MG Tablet Take 1 Tablet by mouth daily. Take 4 tab PO daily x 2 days, 3 tab PO daily x 2 days, 2 tab PO daily x 2 day, 1 tab PO daily x 2 days. 20 Tablet 02/19/2025 Active Active Problems Problem Noted Date Diagnosed Date Eczema 09/20/2024 Encounters Date Type Department Care Team Description 02/19/2025 2:20 PM CDT [facility] [address] [place] [address] Carla Simon APRN, PHYSICAL EDUCATION PROFESSOR Urticaria (Primary Dx) Discharge Disposition: Discharged to home or Selfcare 02/19/2025 Travel from Last 3 Months Social History Tobacco Use Types Packs/Day Years Used Date Smoking Tobacco: Never Smokeless Tobacco: Never Tobacco Cessation:Counseling Given: Not Answered Alcohol Use Standard Drinks/Week Comments Never 0 (1 standard drink = 0.6 oz pur e alcohol) Comments No Sex and Gender Information Value Date Recorded Sex Assigned at Not on file Legal Sex Female 8:47 AM CDT Gender Identity Not on file Sexual Orientation Not on file Last Filed Vital Signs Vital Sign Reading Time Taken Comments Blood Pressure 104/60 02/19/2025 2:29 PM CDT Pulse 64 02/19/2025 2:29 PM CDT Temperature 36.3 C (97.3 F) 02/19/2025 2:29 PM CDT Respiratory Rate 20 02/19/2025 2:29 PM CDT Oxygen Saturation 97% 02/19/2025 2:29 PM CDT Inhaled Oxygen Concentration - - Weight 61.2 kg (135 lb) 08/24/2021 9:05 AM CDT Height - - Body Mass Index - - Plan of Treatment Health Maintenance Due Date Last Done Comments Mammogram 1982 Pap Smear 2003 Cervical Cancer Screening (CCS) 2012 HPV/Cotest 2012 Discussion re Starting/Frequency of Mammograms 2022 SARS-COV-2 Immunization ( season) 2024 06/26/2021, 06/05/2021 Influenza Immunization (Season Ended) 2025 08/09/2020, 08/09/2019, 08/09/2018, Additional history exists Respiratory Syncytial Virus (RSV) Immunization (Adult) (1 - 1-dose 75+ series) 2057 Meningococcal Immunization (ACWY) Aged Out 08/20/2001 No longer eligible based on patient's age to complete this topic Hepatitis B Immunization Completed 014, 04/04/2014, 03/03/2014 Hepatitis C Virus (HCV) Screening Completed 05/13/2022, 06/20/2021 DTaP/Tdap/Td Immunization Discontinued 2022, 10/29/2013, 10/25/2013, Additional history exists TdaP Immunization Completed 01/27/2023, , 10/25/2013 Pneumococcal Immunization Combined Aged Out 08/26/2023 No longer eligible based on patient's age to complete this topic Rotavirus Immunization Aged Out No lo nger eligible based on patient's age to [place] [address] [facility] Care Teams Stewardess Supervisor Relationship Specialty Start Date End Date Jonathan Alejandra MD [address] [place] [address] PCP - General Internal Medicine 08/24/21
--- OUTSIDE RECORDS SUMMARY | 2025-03-24 07:30 | XMS_ITS | Clinical Summary ---
Author Organization [facility] [employer] Address [address] [place] [address] Care Team Providers Care Speech And Drama Teacher Name Role Phone Jonathan Alejandra MD Primary Care Provider [phone] Carlos James MD Unavailable Source Comments [facility],non-owned Affiliates and Associated Physician Practices is amultiple site organization consisting of ambulatory clinics and hospital sitesin [place], [place], [place] and [place]. This disclosure is being madepursuant to the Care Everywhere program and may not contain all information available regarding this patient. Last updated 18.[facility] Allergies Active Allergy Reactions Criticality Noted Date Comments Cefdinir Shortness of Breath,Swelling High 07/18/2015 Contrast-Iodinated Agents For Ct/Other Other,Shortness of Breath High 07/18/2015 Pasted out, hot flashes Rizatriptan Other 11/19/2017 Metronidazole Other Low 07/18/2015 Stomach pain Modafinil Nausea and/or Vomiting 12/09/2018 Penicillins Swelling Low 07/18/2015 Shellfish Shortness of Breath High 08/26/2011 Other reaction(s): Lightheadedness, Nausea, Lightheadedness, Nausea Sumatriptan Other 11/19/2017 Vancomycin Rash Medium 07/18/2015 Medications * Be aware that medications may not be up to date on this document. Alwaysverify current medications with the patient. verapamil CR (ISOPTIN-SR) 240 MG tablet Take 240 mg by mouth DAILY. 90 tablet 3 8 Active topiramate (TOPAMAX) 100 MG tablet Take 100 mg by mouth DAILY. 90 tablet 6 8 Active cetirizine (ZYRTEC) 10 MG tablet Take 10 mg by mouth at bedtime Active Cholecalciferol 50 MCG (2000 UT) Take 2,000 Units by mouth at bedtime Active naproxen sodium (ALEVE) 220 MG tablet Take 220 mg by mouth as needed Active multivitamins (ONE A DAY) capsule Take 1 capsule by mouth at bedtime Active fluticasone propionate (FLONASE) 50 MCG/ACT nasal spray fluticasone propionate 50 mcg/actuation nasal spray,suspension 1 Active gabapentin (NEURONTIN) 100 MG capsule Take 1 (one) capsule by mouth 2 times daily 60 capsule 1 2 Active pantoprazole EC (Protonix) 40 MG tablet Take 40 mg by mouth 2 times daily 2 Active Active Problems Problem Noted Date Diagnosed Date Migraine without aura and wi thout status migrainosus, not intractable 01/30/2016 Migraine with aura and witho ut status migrainosus, not intractable 01/30/2016 Hemiplegic migraine without status migrainosus, not intractable 01/30/2016 Menstrual migraine without s tatus migrainosus, not intractable 01/30/2016 Immunizations Immunization Administration Dates Next Due INFLUENZA VACCINE, TRIV. (AF LURIA, FLUZONE TRIVALENT; 6MO+) (IIV3) 11/08/2013,08/24/2011 FLU VACCINE TRI IIV3 SPLIT P F IM (FLUVIRIN) 08/18/2014,10/29/2012 HEP A VACCINE, ADULT 03/26/2002,08/20/2001 HEP B VACCINE, ADULT 3 DOSE 09/29/2014, 4,03/03/2014 Human Papilloma Virus Dominik valent Vaccine 08/25/2007,04/20/2007,02/23/2007 INFLUENZA A [id number] VACCINE 11/29/2009 INFLUENZA VACCINE 08/09/2020, 9,08/09/2018,2016,07/19/2015,09/10/2014,07/10/2013,1 11/23/2011,08/08/2009,08/03/2008, 007,09/29/2005,12/09/2004,09/14/2003,,08/20/2001 INFLUENZA VACCINE, QUADR. (A FLURIA, FLUZONE QUADRIVALENT; 6MO+) (IIV4) 09/01/2010,10/14/2006,09/29/2005 MENINGOCOCAL MENINGITIS 08/20/2001 POLIO IPV 08/20/2001 TDAP (7yrs+) 10/29/2013,10/25/2013 TYPHOID VACCINE H-P 04/29/2002 Td (Adult), 2 Lf Tetanus Tox oid, Adsorbed, Pf 04/29/2002 YELLOW FEVER 03/26/2002 Family History Medical History Relation Name Comments Diabetes Maternal Grandfather Cancer Maternal Grandmother Diabetes Maternal Grandmother Hypertension Maternal Grandmother Diabetes Mother Hypertension Paternal Grandfather Relation Name Status Comments Maternal Grandfather Maternal Grandmother Mother Paternal Grandfather Social History Tobacco Use Types Packs/Day Years Used Date Smoking Tobacco: Never Smokeless Tobacco: Never Alcohol Use Standard Drinks/Week Comments No 0 (1 standard drink = 0.6 oz pur e alcohol) Comments Unknown Sex and Gender Information Value Date Recorded Sex Assigned at Not on file 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 Gender Identity Not on file Sexual Orientation Not on file Last Filed Vital Signs Vital Sign Reading Time Taken Comments Blood Pressure 102/68 06/26/2022 1:43 PM CDT Pulse 65 06/26/2022 1:43 PM CDT Temperature 36.7 C (98.1 F) 11/16/2017 11:37 AM PUBLISHING DIRECTOR Respiratory Rate 17 01/30/2016 8:18 AM CDT Oxygen Saturation 98% 05/13/2022 1:51 PM CDT Inhaled Oxygen Concentration - - Weight 64.9 kg (143 lb) 06/26/2022 1:43 PM CDT Height 154.9 cm (5' 1 ) 06/26/2022 1:43 PM CDT Body Mass Index 27.02 06/26/2022 1:43 PM CDT Plan of Treatment Health Maintenance Due Date Last Done Comments LIPID TESTING 1982 MAMMOGRAM 1982 HIV SCREENING 1997 DTAP/TDAP/TD VACCINES (3 - Td or Tdap) 10/29/2023 10/29/2013, 10/25/2013, 04/29/2002 PAP SMEAR 06/20/2024 06/20/2021 COVID-19 VACCINE ( season) 2024 DEPRESSION SCREENING 11/09/2024 INFLUENZA VACCINE (Season Ended) 2025 08/09/2020, 08/09/2019, 08/09/2018, Additional history exists ZOSTER VACCINE (1 of 2) 2032 MENINGOCOCCAL GROUPS A/C/Y/W VACCINE Completed 08/20/2001 HPV VACCINE Completed 08/25/2007, 04/09, 02/23/2007 HEPATITIS B VACCINE Completed 09/29/2014, 04/04/2014, 03/03/2014 HEPATITIS C SCREENING Completed 05/13/2022 HIB VACCINE Aged Out No longer eligi ble based on patient's age to complete this topic MENINGOCOCCAL (Group B) VACCINE SHARED DECISION-MAKING Aged Out No longer eligible based on patient's age to complete this topic PNEUMOCOCCAL VACCINE Aged Out No long er eligible based on patient's age to complete this topic Procedures Procedure Name Priority Date/Time Associated Diagnosis Comments HEPATITIS SCREEN ACUTE ([facility]) Routine 05/13/2022 3:10 PM CDT Arthralgia, unspecified joint from Last 3 Months or Most Recently Relevant to Health Maintenance Results * HEPATITIS SCREEN ACUTE ([facility]) (05/13/2022 3:10 PM CDT) Hepatitis A Virus Antibody IgM Negative Negative [facility] ACCOUNT BILL Hepatitis B Virus Surface Antigen Negative Negative [facility] ACCOUNT BILL Hepatitis B Core Virus Antibody IgM Negative Negative [facility] ACCOUNT BILL Hepatitis C Antibody <0.1 0.0 - 0.9 s/co ratio [facility] ACCOUNT BILL Blood BLOOD SPECIMEN / Unknown 05/13/2022 3:10 PM CDT 05/13/2022 Narrative Resulting Agency Comment Lab Testing performed at: [facility] [id number] Carlos James MD LAB - CHEMISTRY ORDERABLES Final Result [facility] ACCOUNT BILL [address] [place] [address] from Last 3 Months or Most Recently Relevant to Health Maintenance Insurance Member Subscriber Plan / Payer (Ef fective 2016-Present) Name:Chen Coats Relation to Subscriber:Spouse Name:YA WATT Subscriber ID:Not on file Date of :1974 (Home) Address: [address] [place] [address] Payer ID:[id number] (NAIC) Type:[employer] Address: [place] [id number] Member Subscriber Plan / Payer (Ef fective 2021-Present) Name:Chen Coats Relation to Subscriber:Spouse Name:YA WATT Date of :1974 (Home) Address: [address] [place] [address] Payer ID:[id number] (NAIC) Type:O Address: [place] [id number] Care Teams Speech And Drama Teacher Relationship Specialty Start Date End Date Jonathan Alejandra MD PCP - General 01/30/16 [place] [address] [address] Rheumatology 05/13/22
--- OUTSIDE RECORDS SUMMARY | 2025-03-24 07:31 | XMS_ITS | Continuity of Care Document ---
Author Organization [facility] Address [address] [place] [address] Phone Care Team Providers Care Electron Beam Machine Welder Setter Name Role Phone Tanvir Roberts MD Unavailable [...] in the evening 10 MG - Active Maxalt-GLASS BLOWING LATHE OPERATOR 10 mg Tab, Rapid Dissolve take 1 [...] Copied on Encounter Tanvir Roberts M.D[facility] P.A[facility] [address] [place] [address], [id number], tel:[phone] Tanvir Roberts M.D., P.A. Hunter headache (chief complaint) No Information Armando Ramey. [address] [place] [address], [id number], . tel:[phone] Referring Provider: Tanvir Roberts, [address] [place] [address], [address]. tel:[phone] OFFICE/OUTPATI ENT VISIT, EST Tanvir Roberts M.D[facility] P.A[facility] [address] [place] [address], [address] [place] [address], tel:[phone] Tanvir Roberts M.D., P.A. Hunter No Information Armando Ramey. [address] [place] [address], [address] [place] [address], . tel:[phone] Referring Provider: Tanvir Roberts, [address] [place] [address], [address] [place] [address]. tel:[phone] Tanvir Roberts M.D[facility] P.A[facility] [address] [place] [address], [address] [place] [address], tel:[phone] Tanvir Roberts M.D., P.A. Hunter No Information Armando Ramey. [address] [place] [address], [address] [place] [address], . tel:[phone] Referring Provider: Tanvir Roberts, [address] [place] [address], [address] [place] [address]. tel:[phone] Tanvir Roberts M.D., P.A., [address] [place] [address], [address] [place] [address], tel:[phone] Tanvir Roberts M.D[facility] P.A[facility] Hunter No Information Armando Ramey. [address] [place] [address], [address] [place] [address], . tel:[phone] OFFICE/OUTPATI ENT VISIT, EST Tanvir Roberts M.D[facility] P.A[facility] [address] [place] [address], [address] [place] [address], tel:[phone] Tanvir Roberts M.D., P.A. Hunter No Information Armnado Ramey. [address] [place] [address], [address] [place] [address], . tel:[phone] Referring Provider: Tanvir Roberts, [address] [place] [address], [address] [place] [address]. tel:[phone] Tanvir Roberts M.D., P.A., [address] [place] [address], [address] [place] [address], tel:[phone] Tanvir Roberts M[facility] P.A[facility] Hunter No Information Armando Ramey. [address] [place] [address], [address] [place] [address], . tel:[phone] Referring Provider: Tanvir Roberts, [address] [place] [address], [address] [place] [address]. tel:[phone] OFFICE/OUTPATI ENT VISIT, RIGOBERTO Roberts M.D., P.A., [address] [place] [address], [address] [place] [address], tel:[phone] Tanvir Roberts M.D., P.A. Hunter No Information Armando Ramey. [address] [place] [address], [address] [place] [address], . tel:[phone] Referring Provider: Tanvir Roberts, [address] [place] [address], [address] [place] [address]. tel:[phone] OFFICE/OUTPATI ENT VISIT, RIGOBERTO Roberts M.D., P.A., [address] [place] [address], [address] [place] [address], tel:[phone] Tanvir Roberts M.D., P.A. Hunter No Information Armando Ramey. [address] [place] [address], [address] [place] [address], . tel:[phone] Referring Provider: Tanvir Roberts, [address] [place] [address], [address] [place] [address]. tel:[phone] OFFICE/OUTPATI ENT VISIT, NEW Tanvir Roberts M.D[facility] P.A[facility] [address] [place] [address], [id number], tel:[phone] Tanvir Roberts M.D., P.A. Hunter No Information Armando Ramey. [address] [place] [address], [id number], . tel:[phone] Referring Provider: Tanvir Roberts, [address] [place] [address], [address]. tel:[phone] Family History Family Member Type Diagnosis Age [...] 32 Payers Payer name Insurance type Covered constitution party ID Authoriza timarely(s) [facility] [employer] [id number] Social History Type Description Quantity Date Captured [...]
--- OUTSIDE RECORDS SUMMARY | 2025-03-24 07:31 | XMS_ITS ---
Author Organization [employer] [place] ([address]) Address [address] [place] [address] Care Team Providers Care Business Information Analyst Name Role Phone Jonathan Alejandra Primary Care Provider UnavailCora Holly Unavailable [phone] REASON FOR VISIT SCIT Reaction Medications Medication SIG (Take, Route, Frequency, Duration) Notes Start Date End Date Status Triamcinolone Acetonide 0.1 % 1 mick applied topically 3 times a day for 7 days 09/30/2023 Active Social History Sex Assigned At : Social History Observation Description Sex Assigned At Female Encounters Encounter Location Date Provider Diagnosis [address] [address] 03/08/2025 Cora Schmitt Allergic rhinitis due to [...] Name:Emery Paulino , 04/18/2025 03:00:00 PM, [address], [place], [address], Progress Notes * Chen COATS LDOB:[birth year] (44 yo F)Acc No.[id number]:03/08/2025 Patient: Chen HENDERSON :1980 A ge:44 Y S ex:Female Address:[address] [place], [place] [address] * Refills Refill Triamcinolone Acetonide Ointment, 0.1 %, applied topically, 60, 1 mick, 3 times a day, 7 days, Refills=0 * true * Date: Generated for Cordell crews/Espinoza/Carlositting on: 0 03/24/2025 07:30 AM CDT
== END 2025-03-24 07:24 | disposition home or self-care (01) ==
LOC: CHSIMG 07:23
PROVIDERS: PCP Internal Medicine; Visit Provider Internal Medicine
DX: Z12.31 Encounter for screening mammogram for malignant neoplasm of breast (principal)
CPT/HCPCS: 77063; 77067

== ENCOUNTER 2025-08-24 15:37 | Outpatient (CLI) | payer OTHER, SELFPAY ==
--- OUTSIDE RECORDS SUMMARY | 2012-03-24 09:15 | XMS_ITS | Continuity of Care Document ---
Author Organization [facility] Address [address] [place] [address] Phone Care Team Providers Care Marketing Communication Manager Name Role Phone Tanvir Roberts MD Unavailable Unavailable Allergies, Adverse Reactions, Alerts Substance Reaction Status Criticality metronidazole Active No Information METRONIDAZOLE HCL Active No Informa tion cefdinir Active No Information penicillin G Active No Information WARNIN allergy(ies) could not be collected because the type is not supported. Please contact the source practice for further details. Medications Medication Instructions Dosage Effective Dates (start - stop) Status Comments propranolol 20 mg Tab take 1 tab po QHS - Active 1+2 Singulair 10 mg Tab take 1 tablet (10MG) by oral route every day in the evening 10 MG - Active Maxalt-SPECIAL EDUCATION PROFESSIONAL 10 mg Tab, Rapid Dissolve take 1 tablet as directed - Active Flexeril 10 mg Tab take 1 tab po TID - Active Zyrtec 10 mg Cap take 1 by Oral route every day 1.00 - Active Celebrex 100 mg Cap take 1 capsule (100MG) by ORAL route every day 100 MG - Active Calcium 500 + D 500 mg (1,250 mg)-200 unit Tab take 1 by Oral route every day 1.00 - Active Centrum Complete 18 mg-400 mcg Tab 1 po every day - Active propranolol 10 mg Tab take 1 tablet po Q HS - No Longer Active Procedures Procedure Date OFFICE/OUTPATIENT VISIT, EST Muscle Test, 4 Extremities Motor Nerve Conduction Test Motor Nerve Conduction Test Sensory Nerve Conduction Test 1 H-Reflex Test H-Reflex Test OFFICE/OUTPATIENT VISIT, EST Muscle Test 2 Extremities Motor Nerve Conduction Test Motor Nerve Conduction Test Sensory Nerve Conduction Test 1 H-Reflex Test H-Reflex Test OFFICE/OUTPATIENT VISIT, EST OFFICE/OUTPATIENT VISIT, EST OFFICE/OUTPATIENT VISIT, NEW Muscle Test, 3 Extremities Motor Nerve Conduction Test Motor Nerve Conduction Test Sensory Nerve Conduction Test 0 H-Reflex Test H-Reflex Test Advance Directives Directive Yes / No Effective Date File Name Resuscitation Not Answered N/A N/A Life Support Not Answered N/A N/A Intubation Not Answered N/A N/A Antibiotics Not Answered N/A N/A IV Fluid Support Not Answered N/A N/A Tube Feed Not Answered N/A N/A Other Directive N/A N/A WARNING:The information contained in this section is historical and is provided for information only and does not constitute a legal document or any assurance that the information is still accurate. Please verify the information with the norris of the legal document before using it for clinical purposes. Encounters Encounter Description Practice Location Reason(s) For Visit Diagnoses Date Provider Providers Copied on Encounter Tanvir Roberts M.D., P.A., [address] [place] [address], [id number], tel:[phone] Tanvir Roberts M.D., P.A. [place] headache (chief complaint) No Information Armando Ramey. [address] [place] [address], [id number], . tel:[phone] Referring Provider: Tanvir Roberts, [address] [place] [address], [id number]. tel:[phone] OFFICE/OUTPATI ENT VISIT, EST Tanvir Roberts M.D., P.A., [address] [place] [address], [address] [place] [address], tel:[phone] Tanvir Roberts M.D., P.A. [place] No Information Armando Ramey. [address] [place] [address], [address] [place] [address], . tel:[phone] Referring Provider: Tanvir Roberts, [address] [place] [address], [address] [place] [address]. tel:[phone] Tanvir Roberts M.D., P.A., [address] [place] [address], [address] [place] [address], tel:[phone] Tanvir Roberts M.D., P.A. [place] No Information Armando Ramey. [address] [place] [address], [address] [place] [address], . tel:[phone] Referring Provider: Tanvir Roberts, [address] [place] [address], [address] [place] [address]. tel:[phone] Tanvir Roberts M.D., P.A., [address] [place] [address], [address] [place] [address], tel:[phone] Tanvir Roberts M.D., P.A. [place] No Information Armando Ramey. [address] [place] [address], [address] [place] [address], . tel:[phone] OFFICE/OUTPATI ENT VISIT, EST Tanvir Roberts M.D., P.A., [address] [place] [address], [address] [place] [address], tel:[phone] Tanvir Roberts M.D., P.A. [place] No Information Armando Ramey. [address] [place] [address], [address] [place] [address], . tel:[phone] Referring Provider: Tanvir Roberts, [address] [place] [address], [address] [place] [address]. tel:[phone] Tanvir Roberts M.D., P.A., [address] [place] [address], [address] [place] [address], tel:[phone] Tanvir Roberts M.D., P.A. [place] No Information Armando Ramey. [address] [place] [address], [address] [place] [address], . tel:[phone] Referring Provider: Tanvir Roberts, [address] [place] [address], [address] [place] [address]. tel:[phone] OFFICE/OUTPATI ENT VISIT, RIGOBERTO Roberts M.D., P.A., [address] [place] [address], [address] [place] [address], tel:[phone] Tanvir Roberts M.D., P.A. [place] No Information Armando Ramey. [address] [place] [address], [address] [place] [address], . tel:[phone] Referring Provider: Tanvir Roberts, [address] [place] [address], [address] [place] [address]. tel:[phone] OFFICE/OUTPATI ENT VISIT, RIGOBERTO Roberts M.D., P.A., [address] [place] [address], [address] [place] [address], tel:[phone] Tanvir Roberts M.D., P.A. [place] No Information Armando Ramey. [address] [place] [address], [address] [place] [address], . tel:[phone] Referring Provider: Tanvir Roberts, [address] [place] [address], [address] [place] [address]. tel:[phone] OFFICE/OUTPATI ENT VISIT, NEW Tanvir Roberts M.D., P.A., [address] [place] [address], [id number], tel:[phone] Tanvir Roberts M.D., P.A. [place] No Information Armando Ramey. [address] [place] [address], [id number], . tel:[phone] Referring Provider: Tanvir Roberts, [address] [place] [address], [id number]. tel:[phone] Family History Family Member Type Diagnosis Age At Onset Problem (finding) Family history of heada esther Problem (finding) Family history of Heari ng impairment Father Problem (finding) Alive and well 51 Problem (finding) Family history of Diabe clay mellitus spouse Problem (finding) Alive and well 36 Problem (finding) Family history of Diabe clay mellitus Mother Problem (finding) Alive and well 50 Sister Problem (finding) Alive and well 22 Family h/o Problem (finding) Alive and well 30 Payers Payer name Insurance type Covered democrat ID Authoriza timarely(s) [facility] [id number] Social History Type Description Quantity Date Captured Comments Alcohol Use Details No Caffeine Use Details tea 1 cup per day Tobacco Use Status No Information Smoking Status No Information Sex Female Vital Signs Date / Time: Height Weight BMI Pulse Rate Blood Pressure Temperature Respiratory Rate Body Surface Area Head Circumference Head Circ. Percentile Wt./Alexx. Percentile BMI percentile Pulse Ox Inhaled Ox 2:50 PM 61.00 in 124.00 lbs 23.4 3 kg/m eter (2) 65 /min 118/68 mm[Hg] 99.10 F 18 /min 98 % Chief Complaint And Reason For Visit From encounter dated '03/24/2012 14:15'. headache (chief complaint) Reason For Referral Reason For Referral No Information History Of Present Illness Encounter Date Complaint History Of Prese nt Illness No Information Functional Status Date Functional Assessmen t No Information Instructions Date Instruction Additional Infor mation No Information Assessments Type Assessment Date No Information Patient Care Teams Name Effective Dates (start - stop) Status Members No Information
--- OUTSIDE RECORDS SUMMARY | 2014-06-20 11:30 | XMS_ITS | Continuity of Care Document ---
Author Organization [facility] Address [address] [place] [address] Phone Care Team Providers Care Material Mover Name Role Phone Brian Mccrary MD Unavailable Unavailable Advance Directives Directive Yes / No Effective Date File Name No Information Encounters Encounter Description Practice Location Reason(s) For Visit Diagnoses Date Provider Providers Copied on Encounter [facility], [address], [place], [place], [id number], tel:[phone] [facility] No Information Hermann Torres. [address] , [place], [place], [id number], [place]. tel:[phone] Referring Provider: [facility], [place], [address]. tel:[phone] Family History Family Member Type Diagnosis Age At Onset No Information Payers Payer name Insurance type Covered alliance party ID Authoriza timarely(s) [facility] CI [id number] Social History Type Description Quantity Date Captured Comments Sex Female Smoking Status No Information Chief Complaint And Reason For Visit No Information Reason For Referral Reason For Referral No [...]
--- OUTSIDE RECORDS SUMMARY | 2015-04-30 11:15 | XMS_ITS | Continuity of Care Document ---
Author Organization [facility] Address [address] [place] [address] [address] [place] [address] Phone Care Team Providers Care Liquor Establishment Manager Name Role Phone Nas Johnson DPT Unavailable Unavailable Procedures Procedure Date PT RE-EVALUATION THERAPEUTIC EXERCISES NEUROMUSCULAR RE-ED MANUAL THERAPY FUNC ACTIVITY ULTRASOUND THERAPY HOT/COLD PACK ELECTRIC STIMULATION UNA THERAPEUTIC EXERCISES NEUROMUSCULAR RE-ED MANUAL THERAPY FUNC ACTIVITY ULTRASOUND THERAPY HOT/COLD PACK ELECTRIC STIMULATION UNA THERAPEUTIC EXERCISES NEUROMUSCULAR RE-ED MANUAL THERAPY FUNC ACTIVITY ULTRASOUND THERAPY HOT/COLD PACK ELECTRIC STIMULATION UNATT THERAPEUTIC EXERCISES NEUROMUSCULAR RE-ED MANUAL THERAPY FUNC ACTIVITY ULTRASOUND THERAPY HOT/COLD PACK ELECTRIC STIMULATION UNATT THERAPEUTIC EXERCISES NEUROMUSCULAR RE-ED MANUAL THERAPY FUNC ACTIVITY ULTRASOUND THERAPY HOT/COLD PACK ELECTRIC STIMULATION UNA THERAPEUTIC EXERCISES NEUROMUSCULAR RE-ED MANUAL THERAPY FUNC ACTIVITY ULTRASOUND THERAPY HOT/COLD PACK ELECTRIC STIMULATION UNATT THERAPEUTIC EXERCISES NEUROMUSCULAR RE-ED MANUAL THERAPY FUNC ACTIVITY HOT/COLD PACK ELECTRIC STIMULATION UNATT THERAPEUTIC EXERCISES NEUROMUSCULAR RE-ED MANUAL THERAPY FUNC ACTIVITY HOT/COLD PACK ELECTRIC STIMULATION UNATT THERAPEUTIC EXERCISES NEUROMUSCULAR RE-ED MANUAL THERAPY FUNC ACTIVITY HOT/COLD PACK ELECTRIC STIMULATION UNATT THERAPEUTIC EXERCISES MANUAL THERAPY FUNC ACTIVITY HOT/COLD PACK ELECTRIC STIMULATION UNATT THERAPEUTIC EXERCISES MANUAL THERAPY FUNC ACTIVITY HOT/COLD PACK ELECTRIC STIMULATION UNATT THERAPEUTIC EXERCISES MANUAL THERAPY FUNC ACTIVITY HOT/COLD PACK ELECTRIC STIMULATION UNATT THERAPEUTIC EXERCISES MANUAL THERAPY FUNC ACTIVITY HOT/COLD PACK ELECTRIC STIMULATION UNATT THERAPEUTIC EXERCISES MANUAL THERAPY FUNC ACTIVITY HOT/COLD PACK PT EVALUATION THERAPEUTIC EXERCISES MANUAL THERAPY HOT/COLD PACK Mobility: Walking And Moving Limitations -Curent Mobility: Walking And Moving Limitation- Goal Medications Name Dose Freq Route DOC March Pain Assess Positive 1-08/18 DOC 2014 BMI Normal and DOC 18-64 yo=18.5-25.0 65 + yo=23.0-30.0 Functional Outcome Assessmen t documented, deficits identified, treatment plan es THERAPEUTIC EXERCISES NEUROMUSCULAR RE-ED MANUAL THERAPY HOT/COLD PACK ELECTRIC STIMULATION UNATT THERAPEUTIC EXERCISES NEUROMUSCULAR RE-ED MANUAL THERAPY HOT/COLD PACK ELECTRIC STIMULATION UNATT THERAPEUTIC EXERCISES NEUROMUSCULAR RE-ED MANUAL THERAPY HOT/COLD PACK ELECTRIC STIMULATION UNATT THERAPEUTIC EXERCISES NEUROMUSCULAR RE-ED MANUAL THERAPY HOT/COLD PACK ELECTRIC STIMULATION UNATT PT EVALUATION THERAPEUTIC EXERCISES NEUROMUSCULAR RE-ED MANUAL THERAPY Advance Directives Directive Yes / No Effective Date File Name No Information Encounters Encounter Description Practice Location Reason(s) For Visit Diagnoses Date Provider Providers Copied on Encounter [address], [id number], tel:[phone] [place] No Information Elizabeth Lovell. [address] [facility], [facility] [address], [place], [facility], . tel:[phone] Referring Provider: Chris Swift, [address] [facility] [address], [place], [address]. tel:[phone], [id number], tel:[phone] [place] No Information Elizabeth Lovell. [address] [facility], [facility] [address], [place], [facility], . tel:[phone] Referring Provider: Chris Swift, [address] [facility] [address], [place], [address]. tel:[phone], [place], [place], [id number], tel:[phone] [place] No Information Norbertoman Taverajung. [address] [facility], [address], [place], [place], [facility], [place]. tel:[phone] Referring Provider: Chris Swift, [address], [place], [address]. tel:[phone] [address], [place], [place], [id number], tel:[phone] [place] No Information Norbertoman Taverajung. [address] [place] [address], [address], [place], [facility], [place]. tel:[phone] Referring Provider: Chris Swift, [address], [place], [address]. tel:[phone] [address], [place], [place], [id number], tel:[phone] [place] No Information Norbertoman Taverajung. [address] [place] [address], [address], [place], [facility], [place]. tel:[phone] Referring Provider: Chris Swift, [address], [place], [address]. tel:[phone] [address], [place], [place], [id number], [place] tel:[phone] [place] No Information Norbertoman Taverajung. [address] [facility], [address], [place], [address], [place]. tel:[phone] Referring Provider: Chris Swift, [address], [place], [address]. tel:[phone] [address], [place], [place], [id number], [place] tel:[phone] [place] No Information Elizabeth Lovell. [address] [facility], [address], [place], [address], [place]. tel:[phone] Referring Provider: Chris Swift, [address], [place], [address]. tel:[phone] [address], [place], [place], [id number], [place] tel:[phone] [place] No Information Elizabeth Lovell. [address] [facility], [address], [place], [address], [place]. tel:[phone] Referring Provider: Chris Swift, [address], [place], [address]. tel:[phone] [address], [place], [place], [id number], [place] tel:[phone] [place] No Information Elizabeth Lovell. [address] [facility], [address], [place], [address], [place]. tel:[phone] Referring Provider: Chris Swift, [address], [place], [address]. tel:[phone] [address], [place], [id number], [place] tel:[phone] [place] No Information Jessy Lucas. [address] [facility], [address], [place], [address], [place]. tel:[phone] Referring Provider: Chris Swift, [address], [place], [address]. tel:[phone], [place], [place], [id number], [place] tel:[phone] [place] No Information Elizabeth Lovell. [address] [facility], [address], [place], [facility], [place]. tel:[phone] Referring Provider: Chris Swift, [address], [place], [address]. tel:[phone] [address], [place], [place], [id number], tel:[phone] [place] No Information Elizabeth Lovell. [address] [facility], [address], [place], [facility], [place]. tel:[phone] Referring Provider: Chris Swift, [address], [place], [address]. tel:[phone] [facility], [place], [place], [id number], [place] tel:[phone] [place] No Information Elizabeth Lovell. [address] [facility], [address], [place], [facility], [place]. tel:[phone] Referring Provider: Chris Swift, [address], [place], [address]. tel:[phone] [address], [place], [place], [id number], [place] tel:[phone] [place] No Information Elizabeth Lovell. [address] [facility], [address], [place], [facility], [place]. tel:[phone] Referring Provider: Chris Swift, [address], [place], [address]. tel:[phone], [id number], [place] tel:[phone] [place] No Information Elizabeth Lovell. [address] [facility], [address], [place], [facility], [place]. tel:[phone] Referring Provider: Chris Swift, [address], [place], [address]. tel:[phone], [place], [id number], [place] tel:[phone] [place] No Information No Information Referring Provider: Chris Swift, [address], [place], [address]. tel:[phone], [place], [id number], [place] tel:[phone] [place] No Information José Miguel Duran. [address] [place] [address], [address], [place], [facility], . tel:[phone] Referring Provider: Chris Swift, [address], [place], [address]. tel:[phone], [place], [place], [id number], [place] tel:[phone] [place] No Information José Miguel Duran. [address] [place] [address], [address], [place], [facility], . tel:[phone] Referring Provider: Chris Swift, [address], [place], [address]. tel:[phone], [place], [id number], [place] tel:[phone] [place] No Information José Miguel Duran. [address] [facility], [address], [place], [facility], . tel:[phone] Referring Provider: Chris Swift, [address], [place], [address]. tel:[phone], [place], [place], [id number], [place] tel:[phone] Arnold Pain in joint involving lower leg José Miguel Duran. [address] [facility], [address], [place], [address], [place]. tel:[phone] Referring Provider: Chris Swift, [address] [facility] [address], [place], [address]. tel:[phone] Family History Family Member Type Diagnosis Age At Onset No Information Payers Payer name Insurance type Covered republican ID Authoriza tion(s) No Information Social History Type Description Quantity Date Captured [...]
--- OUTSIDE RECORDS SUMMARY | 2025-07-18 12:30 | XMS_ITS ---
Author Organization [facility] [employer] [place] ([address]) Address [address] [place] [address] Care Team Providers Care Bet Taker Name Role Phone Jonathan Alejandra Primary Care Provider Cora Montesinos Unavailable [phone] Emery Paulino Unavailable [phone] REASON FOR VISIT SCIT (Aeroallergen) Social History Sex Assigned At : Social History Observation Description Sex Assigned At Female Encounters Encounter Location Date Provider Diagnosis [facility] [address] [place] [address] 07/18/2025 Emery Paulino Plan Of Treatment Next Appt Details Provider Name:Emery Paulino , 09/13/2025 10:50:00 AM, [address] [facility], [address], [place], [address], Provider Name:Emery Paulino , 10/17/2025 02:30:00 PM, [address] [facility], [facility] [address], [place], [address], Provider Name:Emery Paulino , 11/15/2025 10:30:00 AM, [address] [facility] [address], [address], [place], [address], Progress Notes * Chen COATS LDOB:[birth year] (44 yo F)Acc No.[id number]:07/18/2025 SCIT-Aeroallergen Patient: Chen HENDERSON Provider: Juliet Paulino MD :1980 A ge:44 Y S ex:Female Date:07/18/2025 Address:[address] [place], [place] [address] Pcp:Jonathan Alejandra Subjective: * Chief Complaints: * 1 . SCIT (Aeroallergen). * Medical History: Objective: * Vitals: Assessment: Plan: * Treatment: * Billing Information: * Visit Code: * Procedure Codes: * Electronic signature of Maude Paulino MD, FAAAAI on 08/24/2025 at 10:11 AM CDT Sign off status: Pending * Provider: Juliet Paulino MD Date: 0 07/18/2025 Generated for Cordell crews/Espinoza/Cindysmitting on: 1 10:11 AM CDT
--- NOTE | ~2025-08-24 | XR_ITS ---
EXAMINATION: XR foot RT min 3V, 08/24/2025 16:00 CDT HISTORY: PAIN IN BOTH FEET COMPARISON: No comparisons available. Findings: No acute fracture or malalignment. No significant degenerative changes. Soft tissues unremarkable. Impression: No acute fracture or malalignment. Reviewed, dictated and finalized at location P. Impression: No acute fracture or malalignment.
--- NOTE | ~2025-08-24 | XR_ITS ---
EXAMINATION: XR foot LT min 3V, 08/24/2025 16:00 CDT HISTORY: PAIN IN BOTH FEET COMPARISON: No comparisons available. Findings: No acute fracture or malalignment. No significant degenerative changes. Soft tissues unremarkable. Impression: No acute fracture or malalignment. Reviewed, dictated and finalized at location P. Impression: No acute fracture or malalignment.
--- OUTSIDE RECORDS SUMMARY | 2025-08-24 17:39 | XMS_ITS | Clinical Summary ---
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 Gender Identity Not on file Sexual Orientation Not on file Plan of Treatment Health Maintenance Due Date Last Done Comments Cervical Cancer Screening Pa p Smear (Age 30 to 64) Every 3 Years 1982 Annual Physical 1985 Hepatitis C 2000 DTaP, Tdap and Td Vaccines ( 1 - Tdap) 2001 Hepatitis B Vaccines (1 of 3 - 19+ 3-dose series) 2001 HPV Vaccines (1 - 3-dose SCD M series) 2009 Cervical Cancer Screening Pa p with HPV Testing (Age 30 to 64) Every 5 Years 2012 Cervical Cancer Screening with HPV 2012 Mammogram Screening 2022 COVID-19 Vaccine (2023-2 5 season) 2025 Influenza Adult (#1) 2025 Hepatitis A Vaccines Aged Out No long er eligible based [...] patient's age to complete this topic Insurance Care Teams Special Agent In Charge Relationship Specialty Start Date End Date Jonathan Alejandra MD [address] [place] [address] PCP - General INTERNAL MEDICINE 11/29/19
--- OUTSIDE RECORDS SUMMARY | 2025-08-24 17:39 | XMS_ITS | Data Portability ---
Author Organization [facility] Address [address] [place] [address] [place] [address] Care Team Providers Care Waste Reclaimer Name Role Phone SOFIA HENDERSON Primary Care Provider [phone] Assessment No assessment recorded. Plan of Treatment Reminders Order Date Submit Date Provider Last Modified By Organization Details Last Modified Time Details Appointments None recorded. Lab None recorded. Referral None recorded. Procedures cautery, cervix (PROC) 2020 021 8 [facility], [address] [place] [address], [address], 10:53:36 Surgeries salpingecto my, laparoscopi c (SURG) 2020 021 [email or web address] 8 [facility], [address] [place] [address], [address], 08:30:08 hysteroscop y, with endometrial ablation (SURG) [facility] [address] [place] [address], [address], 12:17:41 Imaging US, pelvis 2020 021 [email or web address] [place], [place], [address], 16:46:26 US, transvagina l 2020 021 [email or web address] [place], [address], [place], [address], 16:46:26 Medication Orders None recorded. Patient TargetsNo targets recorded. Patient InstructionsNo instructions recorded. Reason for Referral None Reported. Results Created Date Observation Date Name Description Value Unit Range Abnormal Flag Note LastModifiedBy Organization Detail LastModifiedTime 06/20/2006/20/2021 HEPAT ITIS B SURFA CE ANTIG EN hepatitis B surface antigen Non-re active non-re active This assay was perfo rmed using [employer] reage nts and test kits. Value s obtai joe with other assay metho ds or kits canno t be used inter [facility] . Not Available [facility] (Lab) [address], [place], [address], 06/21/2021 21:34:51 06/20/20 21 06/20/2021 HEPAT ITIS C ANTIB KYLIE SCREE N, REFLE X TO CONFI RMATI ON hepatitis C antibody Non-re active non-re active This assay was perfo rmed using [employer] reage nts and test kits. Value s obtai joe with other assay metho ds or kits canno t be used inter [facility] . Not Available [facility] (Lab) [address], [place], [address], 06/21/2021 21:34:51 06/20/20 21 06/20/2021 HIV 1/2 ANTIG EN/AN TIBOD Y, REFLE X CONFI RMATI ON HIV Ag-Ab total quant 0.06 idx <1.00 Not Available [facility] (Lab) [address], [place], [address], 06/21/2021 21:34:52 06/20/20 21 06/20/2021 HIV 1/2 ANTIG EN/AN TIBOD Y, REFLE X CONFI RMATI ON HIV Ag-Ab total Non-re active non-re active Not Available [facility] (Lab) [address], [place], [address], 06/21/2021 21:34:52 06/20/20 21 06/20/2021 HIV 1/2 ANTIG EN/AN TIBOD Y, REFLE X CONFI RMATI ON HIV-1 antibody quant 0.03 idx <1.00 Not Available [facility] (Lab) [address], [place], [address], 06/21/2021 21:34:52 06/20/20 21 06/20/2021 HIV 1/2 ANTIG EN/AN TIBOD Y, REFLE X CONFI RMATI ON HIV-1 antibody Non-re active non-re active Not Available [facility] (Lab) [address], [place], [address], 06/21/2021 21:34:52 06/20/20 21 06/20/2021 HIV 1/2 ANTIG EN/AN TIBOD Y, REFLE X CONFI RMATI ON HIV-1 antigen (P24) quant 0.06 idx <1.00 Not Available [facility] (Lab) [address], [place], [address], 06/21/2021 21:34:52 06/20/20 21 06/20/2021 HIV 1/2 ANTIG EN/AN TIBOD Y, REFLE X CONFI RMATI ON HIV-1 antigen (P24) Non-re active non-re active Not Available [facility] (Lab) [address], [place], [address], 06/21/2021 21:34:52 06/20/20 21 06/20/2021 HIV 1/2 ANTIG EN/AN TIBOD Y, REFLE X CONFI RMATI ON HIV-2 antibody quant 0.04 idx <1.00 Not Available [facility] (Lab) [address], [place], [address], 06/21/2021 21:34:52 06/20/20 21 06/20/2021 HIV 1/2 [...] on will be perfo rmed by the [employer] us HIV 1/2 Suppl ement al Assay . The perfo rmanc e of this assay has not been estab lishe d for neona clay and the assay shoul d not be used in indiv idual s young er than 2 years of age. Not Available [facility] (Lab) [address], [place], [address], 06/21/2021 21:34:52 06/20/20 21 06/20/2021 RPR SCREE N/REF PRERNA TITER /FTA RPR screen Nonrea ctive nonrea ctive Not Available [facility] (Lab) [address] [place], [address], 06/21/2021 21:34:52 06/20/20 21 06/20/2021 HEPAT ITIS B CORE, IGM hepatitis B core IgM antibody Negati ve negati ve Not Available [facility] (Lab) [address] [place], [address], 06/21/2021 21:34:53 06/20/20 21 06/20/2021 IMAGE GUIDE D PAP AND HPV REGAR DLESS image guided Pap, HPV regardless of Pap result SEE RESULT S BELOW CASE REPOR T: Cytol ogy Gynec ologi indio Repor t Case: [id number] Autho jazmin montemayor Provi gómez: Shawna craigich , Paulina Card cted: 06/20 1507 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 CLINI INDIO INFOR MATIO N: Menst rual Statu s: LMP (if appli cable ): 7/26/ 2021 Clini indio Histo ry/Pr eviou s Pap: Type of Neopl trino (if appli cable ): Signi fican t Clini indio Findi ngs: Other Histo ry: Hormo vernon [...] ng do not corre late with physi indio and/o r histo rical findi ngs, furth er inves tigat ion is recom martha d, as clini yael warra nted. Not Available [facility] (Lab) [address], [place], [address], 06/24/2021 12:09:35 06/20/20 21 06/20/2021 TRICH OMONA S VAGIN KRIS (RRNA ) trichomonas vaginalis ribosomal RNA (rrna) Negati ve negati ve Not Available [facility] (Lab) [address] , [place], [address], 06/24/2021 12:09:36 06/20/20 21 06/20/2021 CT/GC (JONNA) , THINP REP VIAL chlamydia trachomatis, PCR Negati ve negati ve Not Available [facility] (Lab) [address] , [place], [address], 06/24/2021 12:09:37 06/20/20 21 06/20/2021 CT/GC (JONNA) , THINP REP VIAL neisseria gonorrhoeae, PCR Negati ve negati ve Not Available [facility] (Lab) [address], [place], [address], 06/24/2021 12:09:37 07/04/20 21 07/04/2021 US, pelvi s No observ ation record ed. [facility] [address], [place], [address], 07/04/2021 12:58:42 07/04/20 21 07/04/2021 US, trans vagin al No observ ation record ed. [facility] [address], [place], [address], 07/04/2021 12:59:07 07/04/20 21 07/04/2021 US, pelvi s No observ ation record ed. [email or web address] [address], [place], [address], 07/17/2021 17:24:13 Result Notes None recorded. Problems Name Problem SNOMED Code Status Onset Date Resolution Date Notes Provider Name and Address Organization Details Recorded Time Dyspareu lia 44153274 Completed 201206/20/2021 Dyspareun ia;Record ed Elsewhere : No Locati on: [facility] So urce: EHR Chron ic: N Practic e ID: 0001 Bill able Time: 10:30:00 AM Concetta Jaycob onofre [facility] 12:13:16 Speciali zed medical examinat ion Completed 201306/20/2021 Routine gynecolog ical examinati on;Practi ce ID: 0001 Concetta Jaycob onofre [facility] 12:13:29 Speciali zed medical examinat ion Completed 201306/20/2021 Other specified chlamydia l diseases; Practice ID: 0001 Concetta onofre [facility] 12:13:30 Venereal disease screenin g Completed 201306/20/2021 Screening examinati on for venereal disease;Juliet kerntice ID: [address] [facility] 12:13:32 Screenin g for malignan t neoplasm of cervix Completed 201306/20/2021 Pap Smear;Pra ctice ID: [address] [facility] 12:13:23 Female genital organ symptoms [id number] Completed 201306/20/2021 Pelvic Pain;Prac steven ID: [address] [facility] 12:13:[address] Concept Completed 201506/20/2021 Encntr for smash hand exam (general) (routine) w/o abn findings; Practice ID: [address] [facility] 12:13:26 Body mass index 25-29 - overweig ht [id number] Completed 201506/20/2021 Body mass index (BMI) 25.0-25.9 , adult;Rec orded Elsewhere : No Locati on: [facility] So urce: EHR Chron ic: N Practic e ID: 0001 Sam cunningham Time: 09:30:00 AM Concetta Devries [facility] 12:13:13 Uses combined oral contrace ption [id number] Completed 201506/20/2021 Encounter for initial prescript ion of contracep tive pills;Pra ctice ID: [address] [facility] 12:13:[address] Concept Completed 201506/20/2021 Encounter for surveilla nce of other contracep tives;Pra ctice ID: [address] [facility] 12:13:28 Pregnanc y test negative [id number] Completed 201506/20/2021 Encounter for test, result negative; Practice ID: [address] [facility] 12:13:19 Procedur e Completed 201606/20/2021 Enctr srvlnc implantab le subdermal contracep tive;Prac steven ID: [address] [facility] 12:13:[address] Concept Completed 201706/20/2021 Encntr for general adult medical exam w/o abnormal findings; Recorded Elsewhere : No Locati on: [facility] So urce: EHR Chron ic: N Practic e ID: 0001 Bill able Time: 02:30:00 PM [address]ries [facility] 12:13:24 Problem Notes None recorded. Procedures Surgical History Date Name Laterality Status Provider Name and Address Organization Details Recorded Time 08/09/20 21 total excision of bilateral fallopian tubes completed [facility] 08/15/2021 10:05:37 08/09/20 21 procedure on cervix completed [facility] 08/15/2021 10:06:22 08/09/20 21 HYSTEROSCOPY, WITH ENDOMETRIAL ABLATION (SURG) completed Dolly Smith [facility] 08/12/2021 10:39:08 11/26/19 19 Date of Last Pap Smear completed [facility] 06/18/2021 09:39:13 11/09/19 [address] [facility] 06/18/2021 09:37:11 11/09/[address] [facility] 06/18/2021 09:36:47 11/09/19 12 Unlisted px accessory sinus completed [facility] 06/18/2021 09:37:01 11/09/19 11 Car[address] tunnel surgery completed [facility] 06/18/2021 09:36:37 11/09/19 04 procedure on knee completed [facility] 06/18/2021 09:35:55 reconstruction of facial bones completed [facility] 06/18/2021 09:35:37 Imaging Results None recorded. Procedure Notes None recorded. Medical Equipment None Reported. Allergies Allergen ID Allergen Name Allergen Category Reaction Reaction Severity Criticality Documentation Date Start Date Code Code System Note Provider Name and Address Organization Details Recorded Time 23463 metronida zole medicatio n Not available Not available Not available 10/26/2020 6922 RxNorm Comme nt: [facility]at [facility] C[facility] sativ e Agent : Flagy l; Not Available [facility] 0 14:17:57 91975 vancomyci n medicatio n Not available Not available Not available 10/26/2020 67718 RxNorm Comme nt: [facility]; Not Available [facility] 0 14:17:57 39886 Product containin g penicilli n (product) medicatio n Not available Not available Not available 10/26/2020 38005 8001 SNOMED Comme nt: [facility]at [facility]; Not Available [facility] 0 14:17:57 76335 Omnicef medicatio n Not available Not available Not available 06/20/2021 21735 RxNorm Concetta Devries [facility] 1 12:30:08 Medications Name Sig [...] Prescrib ed Elsewher e: Yes [facility] By: kamari Romeroo unter DateTime : 10/14/20 13 10:30:00 AM Not Available Not Available Not Available Vitamin D2 1,250 mcg (50,000 unit) capsule take 1 capsule by oral route every week 2013 active Prescrib ed Elsewher e: No Locat ion: [facility] odify By: lara coleunter DateTime : 10/20/20 14 11:00:00 AM Not Available Not Available Not Available fluticaso ne propionat e 50 mcg/actua tion nasal spray,joslyn pension active Not Available Not Available Not Available Jane (28) 3 mg-0.03 mg tablet take 1 tablet by oral route every day for 28 days 02/06 completed Prescrib ed Elsewher e: No Locat ion: [facility] liu [facility] odify By: davion coleunter DateTime : 01/11/20 16 03:45:00 PM Not Available Not Available Not Available amoxicill in 875 mg-potass ium clavulana te 125 mg tablet 06/20 completed Not Available Not Available Not Available Topamax 50 mg tablet take 1 tablet by oral route 2 times every day active Prescrib ed Elsewher e: Yes [facility] od[facility] By: kamari Romeroo unter DateTime : 10/14/20 13 10:30:00 AM Not Available Not Available Not Available Zyrtec 10 mg capsule active Prescrib ed Elsewher e: Yes Loca tion: [facility] M oddorie By: jlpfernando campos DateTime : 10/14/20 13 10:30:00 AM Not Available Not Available Not Available Vitals Date Recorded Body height Body mass index (BMI) Body weight Systolic And Diastolic Provider Name and Address Organization Details Last Updated DateTime 07/11/2021 152.4 cm 27.9 kg/m2 99774.71 g 123/77 mm[Hg] Lilian [facility] 07/11/2021 15:27:18 Date Recorded Body height Body mass index (BMI) Body weight Systolic And Diastolic Provider Name and Address Organization Details Last Updated DateTime 08/05/2021 152.4 cm 28.4 kg/m2 25174.61 g 129/82 mm[Hg] Concetta Devries [facility] 08/05/2021 15:33:33 Date Recorded Body height Body mass index (BMI) Body weight Systolic And Diastolic Provider Name and Address Organization Details Last Updated DateTime 08/15/2021 152.4 cm 27.9 kg/m2 09169.71 g 114/72 mm[Hg] Lilian [facility] 08/15/2021 09:55:19 Social History Question Answer Notes LastModified by Organizat ion Details LastModified Time Tobacco Smoking Status Never Smoker Jordi onofre, [facility] 08/15/2021 09:38:44 Do You Have [...] Or The Highest Degree You Have Received? [id number] Information not available 06/28/2021 Are There Any [...] not available 06/20/2021 Are you able to walk independently without assistance or assistive devices? YESWOREST Information not available 06/28/2021 What is your exercise level? Occasional Information not available 06/20/2021 Mental Status None recorded. Family History Relationship Description Onset Age of this Age Resolved Age Notes LastModified by Organization Details LastModified Time Mother Malignant neoplasm of cervix uteri Not available 10/2021 12:32:44 Mother Diabetes mellitus Not available 2020 12:33:39 Maternal Grandmother Malignant neoplasm of cervix uteri Not available 10/2021 12:32:44 Maternal Grandmother Malignant neoplasm of pancreas [email or web address] Not available 2020 09:38:43 Maternal Grandmother Diabetes mellitus Not available 2020 12:33:17 Maternal Grandfather Diabetes mellitus Not available 2020 12:33:05 Paternal Grandfather Malignant neoplasm of colon Not available 2020 12:33:34 Medical History Condition Response Allergies (Food, seasonal, environmental ) N Other N Breast Cancer N Drug/Latex Allergies/Reactions N Blood Transfusion N Dermatologic Disorders N Lung Disease N Defects or Inherited Disease N Breast Problem N Gestational Diabetes N Hematologic disorders N Anesthesia Complications N History of STI N Deep Vein Thrombosis N Polycystic ovary syndrome Y Anxiety Disorder N Autoimmune disease N Arthritis N Infertility N Polyps N Acid Reflux (GERD) N History of abnormal pap N Cancer N Stroke N Varicosities N Neurologic/Epilepsy N Endometriosis N High Cholesterol N Headaches N Fibromyalgia N Kidney Disease N Heart Problems N Kidney or Bladder Problems N Thyroid Problems N GI Problems N Eating Disorder [...] Diagnosis SNOMED-CT Code Diagnosis ICD10 Code Diagnosis IMO Codes Diagnosis Note [id number] Kimi Perkins MD [place] [address] [address] 06/18/2021 15:19:42 07/03/2021 11:25:22 [id number] [facility] [address] [address] 06/20/2021 12:17:56 06/20/2021 12:58:55 Gynecologic examination 08984406 Z01.419 Take Calcium with Vitamin D 1200mg [...] BC method. Sexually t ransmitted infectious disease 0391927 A64 [id number] Jamal Potts MD [place] [address] [address] 06/28/2021 12:07:39 06/28/2021 14:29:33 Menorrhagia 428397777 N92.0 this patient is a 40-year-ol d [...] results with treatment in mind. Vaginal discharge 076460 006 N89.8 [id number] Jamal Potts MD [place] [address] [address] 07/04/2021 12:28:42 07/04/2021 14:06:43 Menorrhagia 299572921 N92.0 this patient is a 40-year-ol d [...] discuss those results with treatment in mind. [id number] Jamal Potts MD [place] [address] [address] 07/11/2021 15:12:17 07/15/2021 14:12:37 Vaginal discharge 313445179 N89.8 Menorrhagia 180923846 N9 2.0 This patient is a 40-year-ol d female who presents for follow-up on ultrasound results. We reviewed her ultrasound results together. The ultrasound is normal. She has severe menorrhagi a and excessive mucousy vaginal discharge. After discussion of the results and treatment options we agreed to perform endometria l ablation with cautery of the cervix. Cautery of the endocervic al canal should reduce her eliminate mucousy vaginal discharge. I described the procedure to the patient in detail. We have agreed per surgery. She understand s the risks. Female sterilization 608 95251 Z30.2 [id number] Jamal Potts MD [place] [address] [address] 08/05/2021 15:26:12 08/06/2021 11:31:30 Vaginal discharge problem 809091300 N89.9 Female sterilization 608 01875 Z30.2 Menorrhagia 347574940 N9 2.0 this patient is a 40-year-ol d female with a vaginal discharge problem, unwanted fertility, and severe menorrhagi a. We have agreed to perform cauterizat ion of the cervix, laparoscop ic bilateral salpingect jenifer and endometria l ablation with hysterosco py. She understand s the risks, benefits, and alternativ es. She has completed the informed consent process and is ready to proceed. [id number] Jamal Potts MD [place] [address] [address] 08/12/2021 13:01:42 08/12/2021 13:03:43 [id number] Jamal Potts MD [place] [address] [address] 08/15/2021 09:38:13 08/15/2021 10:32:15 Postoperative care 724178510 Z48.89 this patient is a 40-year-ol d female presents for postop follow-up. She had an endometria l ablation with excision of her cervical ectropion. She is recovering normally. She has no bleeding, no signs of infection. She will follow up as needed. Health Concerns Section Related Observation LastModified by Organization Detai ls LastModified Time None Recorded Concern Status LastModified by Organization Details LastModified Time None Recorded Advance Directives Directive Y: Payers Insurance Date Sequence Insurance Name Policy Number Policy Walker Covered Member ID Walker Member ID Guarantor Name 06/13/2021 1 [facility] ([facility] [id number] Munir Sullivan [id number] Chen Coats 08/12/2021 1 [facility] [id number] Munir Rosado Sullivan [id number] Chen Coats Notes Date Note Type Note Provider Name and Address Organization Details Recorded Time 07/11/2021 text/html This patient is a 40-year-old female who presents for follow-up on ultrasound results. We reviewed her ultrasound results together. The ultrasound is normal. She has severe menorrhagia and excessive mucousy vaginal discharge. After discussion of the results and treatment options we agreed to perform endometrial ablation with cautery of the cervix. Cautery of the endocervical canal should reduce her eliminate mucousy vaginal discharge. I described the procedure to the patient in detail. We have agreed per surgery. She understands the risks. Jamal Potts MD [address], [place], [address], [facility] 07/13/2021 07:47:48 08/05/2021 text/html This patient is a 32-year-old female with severe menorrhagia, unwanted fertility, and mucousy vaginal discharge. We have agreed to perform laparoscopic bilateral salpingectomy, endometrial ablation, excision of endocervix. The patient understands the procedure. The procedure was described to the patient in great detail. the patient also understands the risks. The risks were also explained in detail. She understands that injuries May occur during surgery. She understands these injuries can result in hospitalization, more surgery, and severe illness. She understands there is risk of hemorrhage and infection. Jamal Potts MD [address], [place], [address], [facility] 08/05/2021 17:59:16 08/15/2021 text/html this patient is a 40-year-old female presents for postop follow-up. She had an endometrial ablation with excision of her cervical ectropion. She is recovering normally. She has no bleeding, no signs of infection. She will follow up as needed. Jamal Potts MD [address], [place], [address], [facility] 08/15/2021 10:19:45 OBGyn Episode Ob Episode Information Episode Created Date Number of Fetuses Patient Bloodtype Patient rh Status Prepregnancy Weight lbs Domestic Partner Domestic Partner Phone Father Name Precipitator Operator Status 06/18/20 21 1 CLOSED Fetus Data First Name Last Name Admitted to NICU Weight (g) Sex Living Outcome Pediatric Complications Fetus ID Race Codes Race Delivery Type 3486.76 [id number] F [id number] Vaginal Delivery Erik Calculation Initial Erik Date Initial Exam Date Initial Exam Provider Initial Ultrasound Date Last Menstrual Period Date Ultra Sound Weeks Gestation 0 Eighteen To Twenty Week Erik Update Ultra Sound Date Fundal Height At Umbil Quickening Date Ultra Sound Latest Weeks Gestation Final Erik Confirmed By Final Erik Confirmed Date Final Erik Date Ultra Sound Latest Days Gestation 0 0 Menstrual History Last Menstrual Date Menses Monthly On Bcp Conception Prior Menses Frequency Hcg Plus Date Menarche Onset Age Delivery Information Delivery Date Delivery Type Labor Anesthesia Weeks Gestation Incision Type Labor Labor Length Hrs Delivered By Post Complications Tubal Sterilization Discharge Date Comments 4 Discharge Information Feeding Method Contraceptive Method Maternal HG B and HCT Levels
--- OUTSIDE RECORDS SUMMARY | 2025-08-24 17:39 | XMS_ITS | Patient Health Record ---
Author Organization [facility] Address [address] [place] [address] Care Team Providers Care Carbon Cutter Name Role Phone Fred Martins Unavailable [phone] Reason For Referral No Information Medications Medication [...] Insured Coverage Start Date Coverage End Date [employer] [address] [address] [place] [address] [id number] Chen Coats Self - patient is the insured 7 Medical (General) History Surgical History Surgery Date(Month/Year) Laparoscopy; 2017-07-10 Knee Scoped; 2017-07-10 Facial Reconstruction; 2017-07-10 [place] Teeth; 2017-07-10 Rhinoplasty; 2017-07-10
--- OUTSIDE RECORDS SUMMARY | 2025-08-24 17:39 | XMS_ITS | Clinical Summary ---
Author Organization [facility] [employer] Address [address] [place] [address] Care Team Providers Care Doll Wig Hackler Name Role Phone Jonathan Alejandra MD Primary Care Provider [phone] Carlos James MD Unavailable Source Comments [facility],non-owned Affiliates and Associated Physician Practices is amultiple site organization consisting of ambulatory clinics and hospital sitesin [place], [place], [place] and [place]. This disclosure is being madepursuant to the Care Everywhere program and may not contain all information available regarding this patient. Last updated 18.[facility] Allergies Active Allergy Reactions Criticality Noted [...] Virus Dominik valent Vaccine 08/25/2007,04/20/2007,02/23/2007 INFLUENZA A [id number] VACCINE 11/29/2009 INFLUENZA VACCINE 08/09/2020, 9,08/09/2018,2016,07/19/2015,09/10/2014,07/10/2013,1 11/23/2011,08/08/2009,08/03/2008, [...] on file Legal Sex Female 5:33 PM [employer] Gender Identity Not on file Sexual Orientation Not on file Last Filed Vital Signs Vital Sign Reading Time Taken Comments Blood Pressure 102/68 06/26/2022 1:43 PM CDT Pulse 65 06/26/2022 1:43 PM CDT Temperature 36.7 C (98.1 F) 11/16/2017 11:37 AM [employer] Respiratory Rate 17 01/30/2016 8:18 AM CDT Oxygen Saturation 98% 05/13/2022 1:51 PM CDT Inhaled Oxygen Concentration - - Weight 64.9 kg (143 lb) 06/26/2022 1:43 PM CDT Height 154.9 cm (5' 1) 06/26/2022 1:43 PM CDT Body Mass Index 27.02 06/26/2022 1:43 PM CDT Plan of Treatment Health Maintenance Due Date Last Done Comments LIPID TESTING 1982 MAMMOGRAM 1982 HIV SCREENING 1997 DTAP/TDAP/TD VACCINES (3 - Td or Tdap) 10/29/2023 10/29/2013, 10/25/2013, 04/29/2002 PAP SMEAR 06/20/2024 06/20/2021, 06/20/2021 DEPRESSION SCREENING 11/09/2024 COVID-19 VACCINE ( season) 2025 INFLUENZA VACCINE (#1) 2025 , 08/09/2019, 08/09/2018, Additional history exists ZOSTER VACCINE [...] Resulting Agency Comment Lab Testing performed at: [facility] [id number] [place] Romila Aslam MD LAB - CHEMISTRY ORDERABLES Final Result [facility] ACCOUNT BILL [id number] [place] [address] from Last 3 Months or Most Recently Relevant to Health Maintenance Insurance Member Subscriber Plan / Payer (Ef fective 2016-Present) Name:Chen Coats Relation to Subscriber:Spouse Name:YA WATT Subscriber ID:Not on file Date of :1974 (Home) Address: [address] [place] [address] Payer ID:[id number] (NAIC) Type:[employer] Address: [place] [id number] Member Subscriber Plan / Payer (Ef fective 2021-Present) Name:Chen Coats Relation to Subscriber:Spouse Name:YA WATT Date of :1974 (Home) Address: [address] [place] [address] Payer ID:[id number] (NAIC) Type:HMO Address: [place] [phone] Care Teams Doll Wig Hackler Relationship Specialty Start Date End Date Jonathan Alejandra MD PCP - General 01/30/16 [place] [id number] [place] [address] [place] [id number] Rheumatology 05/13/22
--- OUTSIDE RECORDS SUMMARY | 2025-08-24 17:39 | XMS_ITS | Patient Health Record ---
Author Organization [facility] [employer] ([address]) Address [address] [place] [address] Care Team Providers Care Sample Box Maker Name Role Phone Jonathan Alejandra Primary Care Provider Unavailpatience e Cora Schmitt Unavailable [phone] Emery Paulino Unavailable [phone] Denita Corcoran Unavailable [phone] Allergies Allergen (clinical drug ingredient) Drug/Non Drug Allergy documented on EMR Reaction Allergy Type Onset Date Status Titanium TITANIUM (uncoded) hives Allergy A ctive cefdinir Cefdinir other reaction Drug Allergy Ac tive metronidazole Flagyl stomach upset Drug Allergy Active vancomycin Vancomycin rash Drug Allergy Activ e Results Component Value Reference Range Notes Spirometry Reviewed date:08/17/2025 02:30:32 PM Interpretation:Abnormal - FVL Performing Lab: Notes/Report: Abnormal - FVL SpiroPreBronchodilator_FVC 3.21 SpiroPostBronchodilator_FEF2 5_75 0 SpiroPreBronchodilator_FEF25 _75 3.1 SpiroPreBronchodilator_FEV1 2.65 SpiroPrecentPredictionPost_F EF25_75 0 SpiroPrecentPredictionPost_F EV1 0 SpiroPrecentPredictionPost_F EV1_OVER_FVC 0 SpiroPrecentPredictionPost_F VC 0 SpiroPrecentPredictionPre_FE F25_75 98.7 SpiroPrecentPredictionPre_FE V1 100 SpiroPrecentPredictionPre_FE V1_OVER_FVC 97.6 SpiroPrecentPredictionPre_FV C 103.2 SpiroPredicted_FEF25_75 3.14 SpiroPreBronchodilator_FEV1_ OVER_FVC 82.65 SpiroPreBronchodilator_PEF 5.85 SpiroPostBronchodilator_FVC 0 SpiroPostBronchodilator_FEV1 0 SpiroPostBronchodilator_FEV1 _OVER_FVC 0 SpiroPostBronchodilator_PEF 0 SpiroPredicted_FVC 3.11 SpiroPredicted_FEV1 2.65 SpiroPredicted_FEV1_OVER_FVC 84.7 SpiroPredicted_PEF 5.81 Spirometry Reviewed date:09/07/2024 02:07:28 PM Interpretation:Abnormal - [...] Reviewed date:11/07/2024 03:55:10 PM Interpretation:Abnormal Performing Lab:CB, [facility], [address] [facility], [place], [address] Jet Chang Director - [address] [facility]- Join The Wellness Team Notes/Report: NON-FASTING BILIRUBIN, DIRECT 0.1 < OR [...] MPV 11.0 7.5-12.5 fL ABSOLUTE NEUTROPHILS 3887 [phone] cells/uL ABSOLUTE LYMPHOCYTES [phone] cells/uL ABSOLUTE MONOCYTES 620 200-950 cells/uL ABSOLUTE [...] Negative International Consensus on VIKTOR Patterns (https://doi.org/10.1515/c yxp-5165-5429) For additional information, please refer to http://education.[employer].EthicsGame/faq/RMP498 (This link is being provided for informational/ educational purposes only.) IMMUNOGLOBULIN A 292 47-310 mg/dL RHEUMATOID FACTOR <10 <14 IU/mL ENDOMYSIAL ANTIBODY SCR (IGA) W/REFL TO TITER NEGATIVE NEGATIVE IMMUNOGLOBULIN E 56 <TR=960 kU/L TSH W/REFLEX TO FT4 1.03 Reference Range > or = 20 Years 0.40-4.50 Ranges First trimester 0.26-2.66 Second trimester 0.55-2.73 Third trimester 0.43-2.91 TRYPTASE Reviewed date:10/31/2024 11:41:53 AM Interpretation:Normal Performing Lab:[facility], [address], [place], [address] Emery Mejía M.D.,PhD Notes/Report: NON-FASTING TRYPTASE 2.9 <11.0 mcg/L The Tryptase test, fluorescent enzyme immunoassay (FEIA), measures both the Alpha and Beta forms of Tryptase. Measuring both forms of Tryptase increases sensitivity for the diagnosis of mastocytosis, and mast cell degranulation as a cause of anaphylaxis. ANTI-IGE Reviewed date:10/31/2024 11:41:43 AM Interpretation:Normal Performing Lab:[facility] [facility],, [address] [place], [address] Dinah Cano MD,PhD,VIKI Notes/Report: NON-FASTING IGE ANTIBODY (ANTI IGE IGG) 6 <168 ng/mL It has not been cleared or approved by FDA. This assay has been validated pursuant to the CLIA regulations and is used for clinical purposes. This test was developed and its analytical performance characteristics have been determined by [facility]. CHRONIC URTICARIA Reviewed date:10/31/2024 11:42:17 AM Interpretation:Normal Performing Lab:[facility], [facility] [facility],, [address] [place], [address] Dinah Cano MD,PhD,VIKI Notes/Report: NON-FASTING HISTAMINE RELEASE (CHRONIC URTICARIA) <16 <16 % This test was developed and its analytical performance characteristics have been determined by [facility]. It has not been cleared or approved [...] screen, a Free T4 by Dialysis (TC 18970) or T4, Total (Thyroxine) (TC [address]) should be considered. Ranges First Trimester 0.26-2.66 mIU/L Second Trimester 0.55-2.73 mIU/L Third Trimester 0.43-2.91 mIU/L For additional information, please refer to http://education.[employer].EthicsGame/faq/KSM719 (This link is being provided for informational/educational purposes only.) Reason For Referral Referring Provider First Name Stella Referring Provider Last Name [place] Referred Organization [facility] Referred Provider Cora Schmitt Referred Address [address] [place] [phone], Referral Priority Routine Medications Medication SIG (Take, Route, Frequency, Duration) Notes Start Date End Date Status Pantoprazole Sodium 40 MG 1 tab(s) orally once a day; Duration: 30 day(s) Active SIT (CLUSTER) VARIABLE PER SCHEDULE SC PER SCHEDULE; Duration: 999 DAYS *Please review for potential replacement for e-prescription and drug interaction check* Active MONTELUKAST 10 mg 1 tab(s) orally 30 minutes preior to SCIT; Duration: 30 days Not-Taking ZYRTEC 10 mg 1 tab(s) orally once a day Not-Taking Vitamin D3 50 MCG 1 TAB(S) ORALLY ONCE A DAY; Duration: 30 DAY(S) *Please review and pick correct strength-formulation from Grokr options. If intended option is not shown, discontinue and re-order from Quick Search* Active ZyrTEC Allergy 10 MG 1 tab(s) orally once a day Not-Taking Montelukast Sodium 10 MG 1 tab(s) orally 30 minutes preior to SCIT; Duration: 30 days Active FLUTICASONE NASAL 50 mcg/inh 2 spray(s) in each nostril Qday; Duration: 30 day(s) Not-Taking Flonase Allergy Relief 50 MCG/ACT 2 spray(s) intranasally (avoid nasal septum) once a day; Duration: 30 day(s) Not-Taking FAMOTIDINE 40 mg 1 tab(s) orally 30 mins prior to SCIT; Duration: 30 days Not-Taking EpiPen 2-Enrique 0.3 mg as directed intramuscularly once; Duration: 30 days Active predniSONE 20 MG 1 tablet Orally Once a day Not-Taking TRIAMCINOLONE TOPICAL 0.1% 1 mick applied topically 3 times a day; Duration: 7 days 3 Not-Taking Montelukast Sodium 10 MG 1 tablet Orally Once a day; Duration: 90 days 5 Not-Taking OLOPATADINE NASAL 665 MCG/INH 2 SPRAY(S) INTRANASALLY QDAY; Duration: 30 DAYS *Please review for potential replacement for e-prescription and drug interaction check* Not-Taking Verapamil HCl ER 240 MG 1 cap(s) orally once a day; Duration: 30 day(s) Active TOPAMAX 100 mg 1 tab(s) orally 2 times a day; Duration: 30 day(s) Not-Taking EpiPen 2-Enrique 0.3 MG/0.3ML as directed Injection Yes, generic adrenaclick is ok. Not-Taking VERAPAMIL 240 mg/24 hours 1 cap(s) orally once a day; Duration: 30 day(s) Not-Taking Folic Acid 1 MG 1 tab(s) orally once a day; Duration: 30 day(s) Active PANTOPRAZOLE 40 mg 1 tab(s) orally once a day; Duration: 30 day(s) Not-Taking Topamax 100 MG 1 tab(s) orally 2 times a day; Duration: 30 day(s) Active FOLIC ACID 1 mg 1 tab(s) orally once a day; Duration: 30 day(s) Not-Taking FLONASE 0.05 mg/inh 2 spray(s) intranasally (avoid nasal septum) once a day; Duration: 30 day(s) Not-Taking VITAMIN D3 50 mcg 1 tab(s) orally once a day; Duration: 30 day(s) Not-Taking Famotidine 40 mg 1 tab(s) orally Twice a day; Duration: 30 days Active Famotidine 20 MG 1 tablet at bedtime as needed Orally Once a day; Duration: 90 days 5 Not-Taking BREO ELLIPTA 100 mcg-25 mcg/inh 1 puff(s) inhaled once a day; Duration: 30 days Not-Taking Triamcinolone Acetonide 0.1 % 1 mick applied topically 3 times a day; Duration: 7 days 3 Active Breo Ellipta 100 MCG-25 MCG/INH 1 PUFF(S) INHALED ONCE A DAY; Duration: 30 DAYS *Please review and pick correct strength-formulation from Grokr options. If intended option is not shown, discontinue and re-order from Quick Search* Not-Taking SIT (TRADITIONAL) variable per schedule SC per schedule; Duration: 999 days Active Fluticasone-Salmet jodi 230-21 MCG/ACT 2 puffs Inhalation Twice a day Switched from Wixela DPI to HFA per [facility] recommendations due to thrush. Resent due to error on code. Resending under shortness of breath and with correct dosing. Active NASAL WASHES N/A as directed intranasally as needed; Duration: 30 days Active FAMOTIDINE 40 mg 1 tab(s) orally Twice a day; Duration: 30 days Active FLUTICASONE NASAL 50 mcg/inh 1 spray(s) in each nostril Qday; Duration: 30 days Active OLOPATADINE NASAL 665 mcg/inh 2 spray(s) intranasally Qday; Duration: 30 days Active AEROCHAMBER MDI SPACER - MOUTHPIECE (ADULT) N/A As directed PO Per asthma action plan; Duration: 30 day(s) Active CETIRIZINE 10 mg 1 tab(s) orally Twice a day; Duration: 30 days Active Stiolto Respimat 2.5-2.5 MCG/ACT 2 puffs Inhalation Once a day; Duration: 30 days Active ALBUTEROL (EQV-PROAIR HFA) 90 mcg/inh 2 puff(s) inhaled every 6 hours; Duration: 30 days Active Cetirizine HCl 10 MG 1 tab(s) orally once a day; Duration: 30 days Active Fluticasone Propionate 50 MCG/ACT 1 spray in each nostril in each nostril Qday; Duration: 30 days Active CETIRIZINE 10 mg 1 tab(s) orally once a day; Duration: 30 days Not-Taking MONTELUKAST 10 mg 1 tab(s) orally once a day; Duration: 30 days Active Immunizations Vaccine Route Administration Date Status Comme nts NOC PedvaxHIB IM Intramuscular 08/26/2023 Administered NOC PedvaxHIB IM Intramuscular 12/14/2023 Administered NOC Pneumovax 23 IM Intramuscular 08/26/2023 Administered Exp [id number] Social History Tobacco Use: Social History Observation [...] Status Risk Notes Problem Chronic allergic conjunctivitis (66035088) Other chronic allergic conjunctivitis (H10.45) Active confirmed Problem Allergic rhinitis caused by pollen (disorder) (71370613) Allergic rhinitis due to pollen (J30.1) Active confirmed Problem Allergic rhinitis (08504739) Other allergic rhinitis (J30.89) Active confirmed Problem Inflammatory condition of oral mucous membrane (25102866) Oral mucositis (ulcerative), unspecified (K12.30) Active confirmed Problem Urticaria (530426439) Other urticaria (L50.8) Active confirmed Problem Allergic rhinitis caused by animal hair and dander (970841789103010) Allergic rhinitis due to animal (cat) (dog) hair and dander (J30.81) Active confirmed Problem Eruption of skin (187874086) Rash and other nonspecific skin eruption (R21) Active confirmed Problem Chronic sinusitis (97466064) Other chronic sinusitis (J32.8) Active confirmed Problem Wheezing (46738027) Wheezing (R06.2) Active confirmed Problem Allergy to penicillin (08575067) Allergy status to penicillin (Z88.0) Active confirmed Problem Gastro-esophageal reflux disease without esophagitis (000302567) Gastro-esophageal reflux disease without esophagitis (K21.9) Active confirmed Problem Disorder of vocal cord (32000638) 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) Active confirmed Problem Shortness of breath (796866760) Shortness of breath (R06.02) Active confirmed Problem Chronic cough (07085278) Chronic cough (R05.3) Active confirmed Vital Signs Blood pressure diastolic 84 mm Hg 08/17/2025 Oximetry 100 % 08/17/2025 Height 61 in 08/17/2025 Blood pressure systolic 135 mm Hg 08/17/2025 Weight 136.6 lbs 08/17/2025 BMI 25.81 kg/m2 08/17/2025 Encounters Encounter Location Date Provider Diagnosis [address] [phone] 04/18/2025 Emery Paulino Allergic rhinitis du e to pollen J30.1 ; Other allergic rhinitis J30.89 ; Allergic rhinitis due to animal (cat) (dog) hair and dander J30.81 and Other chronic allergic conjunctivitis H10.[address] [phone] 03/14/2025 mEery Paulino Allergic rhinitis du e to pollen J30.1 ; Other allergic rhinitis J30.89 ; Allergic rhinitis due to animal (cat) (dog) hair and dander J30.81 and Other chronic allergic conjunctivitis H10.[address] [address] 03/07/2025 Emery Paulino Allergic rhinitis du e to pollen J30.1 ; Other allergic rhinitis J30.89 ; Allergic rhinitis due to animal (cat) (dog) hair and dander J30.81 and Other chronic allergic conjunctivitis H10.[address] [address] 02/28/2025 Emery Paulino Allergic rhinitis du e to pollen J30.1 ; Other allergic rhinitis J30.89 ; Allergic rhinitis due to animal (cat) (dog) hair and dander J30.81 and Other chronic allergic conjunctivitis H10.45 [facility] [address] [place], [place] [address] [address] [address] 01/31/2025 Emery Paulino Allergic rhinitis du e to pollen J30.1 ; Other allergic rhinitis J30.89 ; Allergic rhinitis due to animal (cat) (dog) hair and dander J30.81 and Other chronic allergic conjunctivitis H10.45 [facility] [address] [place], [place] [address] [address] [place] [phone] 01/03/2025 Emery Paulino Allergic rhinitis du e to pollen J30.1 ; Other allergic rhinitis J30.89 ; Allergic rhinitis due to animal (cat) (dog) hair and dander J30.81 and Other chronic allergic conjunctivitis H10.45 [facility] [address] [place], [place] [address] [address] [address] 12/06/2024 Emery Paulino Allergic rhinitis du e to pollen J30.1 ; Other allergic rhinitis J30.89 ; Allergic rhinitis due to animal (cat) (dog) hair and dander J30.81 and Other chronic allergic conjunctivitis H10.45 [facility] [address] [place], [place] [address] [address] [place] [phone] 10/11/2024 Emery Paulino Allergic rhinitis du e to pollen J30.1 ; Other allergic rhinitis J30.89 ; Allergic rhinitis due to animal (cat) (dog) hair and dander J30.81 and Other chronic allergic conjunctivitis H10.45 [facility] [address] [place], [place] [address] [address] [place] [phone] 07/25/2025 Emery Paulino Allergic rhinitis du e to pollen J30.1 ; Other allergic rhinitis J30.89 ; Allergic rhinitis due to animal (cat) (dog) hair and dander J30.81 and Other chronic allergic conjunctivitis H10.45 [facility] [address] [place], [place] [address] [address] [place] [phone] 06/27/2025 Emery Jefferson Allergic rhinitis du e to pollen J30.1 ; Other allergic rhinitis J30.89 ; Allergic rhinitis due to animal (cat) (dog) hair and dander J30.81 and Other chronic allergic conjunctivitis H10.45 [facility] [address] [place] [phone] 05/30/2025 Emery Paulino Allergic rhinitis du e to pollen J30.1 ; Other allergic rhinitis J30.89 ; Allergic rhinitis due to animal (cat) (dog) hair and dander J30.81 and Other chronic allergic conjunctivitis H10.[address] [address] 05/22/2025 Emery Paulino Allergic rhinitis du e to pollen J30.1 ; Other allergic rhinitis J30.89 ; Allergic rhinitis due to animal (cat) (dog) hair and dander J30.81 and Other chronic allergic conjunctivitis H10.[address] [address] 08/17/2025 Cora Schmitt Shortness of breath R06.02 ; Wheezing R06.2 ; Chronic cough R05.3 ; Candidiasis, unspecified B37.9 ; Other urticaria L50.8 ; Localized swelling, mass and lump, unspecified R22.9 ; Oral mucositis (ulcerative), unspecified K12.30 ; Allergic rhinitis due to pollen J30.1 ; Allergic rhinitis due to animal (cat) (dog) hair and dander J30.81 ; Other allergic rhinitis J30.89 ; Other chronic allergic conjunctivitis H10.45 ; Other chronic sinusitis J32.8 ; Other diseases of vocal cords J38.3 ; Gastro-esophageal reflux disease without esophagitis K21.9 ; Rash and other nonspecific skin eruption R21 ; Adverse effect of cephalosporins and other beta-lactam antibiotics, subsequent encounter T36.1X5D ; Adverse effect of other drugs, medicaments and biological substances, subsequent encounter T50.995D and Elevated blood-pressure reading, without diagnosis of hypertension R03.[address] [address] 02/21/2025 Denita Corcoran Other urticaria L50. 8 [...] medicaments and biological substances, subsequent encounter T50.995D [facility] [address] [address] 11/10/2024 Cora Schmitt Other urticaria L50. 8 ; [...] medicaments and biological substances, subsequent encounter T50.995D [facility] [address] [address] 05/16/2025 Emery Paulino Allergic rhinitis du e to pollen J30.1 ; Other allergic rhinitis J30.89 ; Allergic rhinitis due to animal (cat) (dog) hair and dander J30.81 and Other chronic allergic conjunctivitis H10.45 [facility] [address] [address] 09/07/2024 Cora Schmitt Allergic rhinitis du e [...] medicaments and biological substances, subsequent encounter T50.995D [facility] [address] [place] [phone] 09/28/2024 Cora Schmitt Other urticaria L50. 8 [...] medicaments and biological substances, subsequent encounter T50.995D [facility] [address] [place] [phone] 02/20/2025 Cora Schmitt [facility] [address] [place] [phone] 08/17/2025 Emery Paulino Shortness of breath R06.[address] [address] 03/08/2025 Cora Schmitt Allergic rhinitis du e to pollen J30.1 [facility] [address] [place] [address] 03/08/2025 Cora Schmitt Allergic rhinitis du e to pollen J30.[address] [address] 02/22/2025 Cora Schmitt Allergic rhinitis du e to pollen J30.[address] [address] 09/21/2024 Cora Schmitt [address] [phone] 09/21/2024 Cora Schmitt Assessments Encounter Date Diagnosis (ICD Code) Assessment Notes Treatment Notes Treatment Clinical Notes Section Notes 09/07/2024 Allergic rhinitis due to pollen (ICD-10 - J30.1) Chen clearly suffers from atopic disease based upon [...] regimen 09/28/2024 Other urticaria (ICD-10 - L50.8) Chen reports a noticeable hive and itching that [...] just one healing cankar sore in mouth. Chen admits to occasional hives approximately once per [...] labs obtained, normal C4, C1 functional, negative VIKTOR. Patient will obtain when she comes back [...] J30.89) 11/10/2024 Other urticaria (ICD-10 - L50.8) Chen reports a noticeable hive and itching that [...] J30.89) 02/21/2025 Other urticaria (ICD-10 - L50.8) Chen reports a noticeable hive and itching that [...] at night. - We discussed today that Chen's illness likely triggered her hive flare. With that said, Chen reports her PCP is now hesitant to [...] unspecified (ICD-10 - R22.9) As stated above. 02/22/2025 Allergic rhinitis due to pollen (ICD-10 - J30.1) 02/28/2025 Allergic rhinitis due to pollen (ICD-10 - J30.1) 02/28/2025 Other allergic rhinitis (ICD-10 - J30.89) 03/07/2025 Other allergic rhinitis (ICD-10 - J30.89) 03/08/2025 Allergic rhinitis due to pollen (ICD-10 - J30.1) 03/08/2025 Allergic rhinitis due to pollen (ICD-10 - J30.1) 03/07/2025 Allergic rhinitis due to pollen (ICD-10 - J30.1) 03/14/2025 Allergic rhinitis due to pollen (ICD-10 - J30.1) 03/14/2025 Other allergic rhinitis (ICD-10 - J30.89) 04/18/2025 Allergic rhinitis due to pollen (ICD-10 - J30.1) 04/18/2025 Other allergic rhinitis (ICD-10 - J30.89) 05/16/2025 Allergic rhinitis due to pollen (ICD-10 - J30.1) 05/16/2025 Other allergic rhinitis (ICD-10 - J30.89) 05/22/2025 Allergic rhinitis due to pollen (ICD-10 - J30.1) 05/22/2025 Other allergic rhinitis (ICD-10 - J30.89) 05/30/2025 Allergic rhinitis due to pollen (ICD-10 - J30.1) 05/30/2025 Other allergic rhinitis (ICD-10 - J30.89) 06/27/2025 Allergic rhinitis due to pollen (ICD-10 - J30.1) 06/27/2025 Other allergic rhinitis (ICD-10 - J30.89) 07/25/2025 Allergic rhinitis due to pollen (ICD-10 - J30.1) 07/25/2025 Other allergic rhinitis (ICD-10 - J30.89) 08/17/2025 Wheezing (ICD-10 - R06.2) See plan above 08/17/2025 Shortness of breath (ICD-10 - R06.02) Chen reports shortness of breath, cough and wheezing for years, though reports overall improvement since Wixela was initiated, specifically after exercising. Previously started Breo, but switched to Wixela by [facility] Pulmon[facility]. Last spirometry showed normal FVC, FEV1, FEV1%. FVL shows blunted PEFR and inspiratory blunting and flattening. Compared to prior spirometry, FVC increased by 230cc, representing a 7% change. Not consistent with ATS-defined criteria for asthma, but demonstrates reversibility, highly suggestive of RAD. Normal lung age. No interval cough, wheezing or SOB. -Last spirometry showed normal FVC, FEV1, FEV%. FVL shows scalloping on end-exhalation and inspiratory blunting. Normal lung age. -Spiroemtry obtained today showing normal FVC, FEV1, FEV%. FVL shows scalloping on end-exhalation and inspiratory blunting. Normal lung age. -Given onogoing episodes of thrush, with stop ICS/LABA at this time and start Anoro Ellipta in addition to nighlty Montelukast. -Continue albuterol 2-4 puffs PRN with spacer. Continue prophylactic use of albuterol 5-10 minutes prior to exercise. Mk Khancristiana at this time. -AAP reviewed. -Follow-up in 1-2 months for E&M 08/17/2025 Shortness of breath (ICD-10 - R06.02) 08/17/2025 Chronic cough (ICD-10 - R05.3) See plan above 07/25/2025 Allergic rhinitis due to animal (cat) (dog) hair and dander (ICD-10 - J30.81) 06/27/2025 Allergic rhinitis due to animal (cat) (dog) hair and dander (ICD-10 - J30.81) 05/30/2025 Allergic rhinitis due to animal (cat) (dog) hair and dander (ICD-10 - J30.81) 05/22/2025 Allergic rhinitis due to animal (cat) (dog) hair and dander (ICD-10 - J30.81) 05/16/2025 Allergic rhinitis due to animal (cat) (dog) hair and dander (ICD-10 - J30.81) 04/18/2025 Allergic rhinitis due to animal (cat) (dog) hair and dander (ICD-10 - J30.81) 03/14/2025 Allergic rhinitis due to animal (cat) (dog) hair and dander (ICD-10 - J30.81) 03/07/2025 Allergic rhinitis due to animal (cat) (dog) hair and dander (ICD-10 - J30.81) 02/28/2025 Allergic rhinitis due to animal (cat) (dog) hair and dander (ICD-10 - J30.81) 02/21/2025 Oral mucositis (ulcerative), unspecified (ICD-10 - K12.30) Prior healing lesion. Consider Behcet's disease and rheumatology evaluation. Oral cavity WNL today. 01/31/2025 Allergic rhinitis due to animal (cat) (dog) hair and dander (ICD-10 - J30.81) 01/03/2025 Allergic rhinitis due to animal (cat) (dog) hair and dander (ICD-10 - J30.81) 12/06/2024 Allergic rhinitis due to animal (cat) (dog) hair and dander (ICD-10 - J30.81) 11/10/2024 Oral mucositis (ulcerative), unspecified (ICD-10 - K12.30) Prior healing lesion. Consider Behcet's disease and rheumatology evaluation. Oral cavity WNL today. 10/11/2024 Allergic rhinitis due to animal (cat) (dog) hair and dander (ICD-10 - J30.81) 09/28/2024 Oral mucositis (ulcerative), unspecified (ICD-10 - K12.30) One healing ulcer on lower lip. Consider Behcet's disease. 09/07/2024 Other allergic rhinitis (ICD-10 - J30.89) Follow allergen avoidance, meds and continue SCIT as an adjunctive treatment to current regimen 09/28/2024 Allergic rhinitis due to pollen (ICD-10 - J30.1) Chen clearly suffers from atopic disease based upon [...] 6 months further evaluation and management 09/07/2024 Other chronic allergic conjunctivitis (ICD-10 - H10.45) Given ocular signs and symptoms I encouraged allergy avoidance measures and meds as above. If symptoms persist, consider adding additional medications including intraocular antihistamine/mast cell stabilizer, PRN and continue SCIT as an adjunctive measure 10/11/2024 Other chronic allergic conjunctivitis (ICD-10 - H10.45) 11/10/2024 Allergic rhinitis due to pollen (ICD-10 - J30.1) Chen clearly suffers from atopic disease based upon [...] and 6 months further evaluation and management 01/03/2025 Other chronic allergic conjunctivitis (ICD-10 - H10.45) 01/31/2025 Other chronic allergic conjunctivitis (ICD-10 - H10.45) 12/06/2024 Other chronic allergic conjunctivitis (ICD-10 - H10.45) 02/21/2025 Allergic rhinitis due to pollen (ICD-10 - J30.1) Chen clearly suffers from atopic disease based upon our skin testing and history. Accordingly, we have encouraged her medication regimen, discussed nasal washes and allergy-specific avoidance measures. She is tolerating SCIT. Previously reporting occasional large, local reactions despite triple premedication. She treats wtih additional antihistamines, TAC and ice with resolution of symptoms. This occurs at random. - Not due for dosing today. - Continue medication regimen as listed above. Recommend decreasing Flonase to one spray each nostril daily. Proper demonstration given. - Continue triple premedication. Continue additional antihistamines, TAC and ice for large,local reactions. Encouraged to take pictures and notify office if any further LLR occur. - Follow-up as scheduled for SCIT and 6 months further evaluation and management 03/07/2025 Other chronic allergic conjunctivitis (ICD-10 - H10.45) 02/28/2025 Other chronic allergic conjunctivitis (ICD-10 - H10.45) 03/14/2025 Other chronic allergic conjunctivitis (ICD-10 - H10.45) 04/18/2025 Other chronic allergic conjunctivitis (ICD-10 - H10.45) 05/16/2025 Other chronic allergic conjunctivitis (ICD-10 - H10.45) 05/22/2025 Other chronic allergic conjunctivitis (ICD-10 - H10.45) 05/30/2025 Other chronic allergic conjunctivitis (ICD-10 - H10.45) 06/27/2025 Other chronic allergic conjunctivitis (ICD-10 - H10.45) 07/25/2025 Other chronic allergic conjunctivitis (ICD-10 - H10.45) 08/17/2025 Candidiasis, unspecified (ICD-10 - B37.9) Patient reports thrush in vocal cords and throat, treated by [facility] in 11/2023. Prior visit, reported thrush had returned. Of note, she was prescribed Amoxicillin and Levaquin in addition to OCS for strep throat and ear infection in 07/2024. Also had Covid-19 at end of 06/2024. Now established with [facility]NT Dr. Zamora. She reports treatment with oral and antifungals. - No thrush noted on exam. Per Chen, it is always located on vocal cords and throat. - Will trial daily Montelukast and Anoro Ellipta. Per Chen, she has attempted stpping ICS/LABA in past with increased in shortness of breath. Instructed to notify office for any increase in lower airway symptoms or albuterol use 2 or more times per week. 08/17/2025 Other urticaria (ICD-10 - L50.8) Chen reports a noticeable hive and itching that [...] and swelling noted to right 4th finger. Zyrtec BID, Pepcid BID and Singulair 10mg started with resolultion of all hives and swelling 1 week after. Last visit, complaints of generalized urticaria over the weekend, [...] moisturizer. She admits to hair dye yearly, does not receive manicures. She does not use makeup. She uses Aleve rarely, denies opioid or alchohol use. Today, reporting no interval hives since last visit. - History, presentation, pictures, and timeframe of symptoms > 6 weeks c/w chronic idiopathic urticaria. - Recommend restarting Zyrtec 10 mg BID, Pepcid 20 mg BID and Singulair 10 mg at night and notify office for reoccurence. - Previously discussed that Chen's illness likely triggered her hive flare. With that said, Chen reports her PCP is now hesitant to prescribe Augmentin due to concerns for allergy to clavulanic acid. Previously discussed that timeline is atypical for an IgE-mediated hypersensitivity reaction. Could consider a dose-challenge in-office. - Consider Xolair for breakthrough symptoms on triple therapy. - Instructed to carry AIE at all times. - Prior laboratory evaluation showed normal tryptase, kidney/liver function, TSH. Negative VIKTOR. Concern for contaminated UA, but has results from UA on 11/03/24 WNL. - Encouraged to avoid NSAIDs, alcohol and opioids as these can exacerbate symptoms. 02/21/2025 Allergic rhinitis due to animal (cat) (dog) hair and dander (ICD-10 - J30.81) Follow allergen avoidance, meds and continue SCIT as an adjunctive treatment to current regimen 11/10/2024 Allergic rhinitis due to animal (cat) (dog) hair and dander (ICD-10 - J30.81) Follow allergen avoidance, meds and continue SCIT as an adjunctive treatment to current regimen 09/07/2024 Shortness of breath (ICD-10 - R06.02) Chen reports shortness of breath, cough and wheezing for years, though reports overall improvement since Wixela was initiated, specifically after exercising. Previously started Breo, but switched to Wixela by [facility]. Last spirometry showed normal FVC, FEV1, FEV1%. FVL shows blunted PEFR and inspiratory blunting and flattening. Compared to prior spirometry, FVC increased by 230cc, representing a 7% change. Not consistent with ATS-defined criteria for asthma, but demonstrates reversibility, highly suggestive of RAD. Normal lung age. No interval cough, wheezing or SOB. -Spirometry today showing normal FVC, FEV1, FEV%. FVL shows scalloping on end-exhalation and inspiratory blunting. Normal lung age. -Given historical thrush in throat, will continue generic high dose Advair HFA. Encouraged to use spacer with administration. Reinforced to brush teeth after inhalation. -Continue albuterol 2-4 puffs PRN with spacer. Continue prophylactic use of albuterol 5-10 minutes prior to exercise. -AAP reviewed. -Follow-up in 3-4 months for E&M 09/28/2024 Allergic rhinitis due to animal (cat) (dog) hair and dander (ICD-10 - J30.81) Follow allergen avoidance, meds and continue SCIT as an adjunctive treatment to current regimen 09/28/2024 Other allergic rhinitis (ICD-10 - J30.89) Follow allergen avoidance, meds and continue SCIT as an adjunctive treatment to current regimen 09/07/2024 Wheezing (ICD-10 - R06.2) See plan above 11/10/2024 Other allergic rhinitis (ICD-10 - J30.89) Follow allergen avoidance, meds and continue SCIT as an adjunctive treatment to current regimen 02/21/2025 Other allergic rhinitis (ICD-10 - J30.89) Follow allergen avoidance, meds and continue SCIT as an adjunctive treatment to current regimen 08/17/2025 Localized swelling, mass and lump, unspecified (ICD-10 - R22.9) As stated above. 08/17/2025 Oral mucositis (ulcerative), unspecified (ICD-10 - K12.30) Prior healing lesion. Consider Behcet's disease and rheumatology evaluation. Oral cavity WNL today. 02/21/2025 Other chronic allergic conjunctivitis (ICD-10 - H10.45) Given ocular signs and symptoms I encouraged allergy avoidance measures and meds as above. If symptoms persist, consider adding additional medications including intraocular antihistamine/mast cell stabilizer, PRN and continue SCIT as an adjunctive measure 09/07/2024 Chronic cough (ICD-10 - R05.3) See plan above 09/28/2024 Other chronic allergic conjunctivitis (ICD-10 - H10.45) Given ocular signs and symptoms I encouraged allergy avoidance measures and meds as above. If symptoms persist, consider adding additional medications including intraocular antihistamine/mast cell stabilizer, PRN and continue SCIT as an adjunctive measure 11/10/2024 Other chronic allergic conjunctivitis (ICD-10 - H10.45) Given ocular signs and symptoms I encouraged allergy avoidance measures and meds as above. If symptoms persist, consider adding additional medications including intraocular antihistamine/mast cell stabilizer, PRN and continue SCIT as an adjunctive measure 09/07/2024 Candidiasis, unspecified (ICD-10 - B37.9) Patient reports thrush in vocal cords and throat, treated by [facility] in 11/2023. Last visit, reported thrush had returned. Of note, she was prescribed Amoxicillin and Levaquin in addition to OCS for strep throat and ear infection in 07/2024. Also had Covid-19 at end of 06/2024. Completed fluconazole x 14 days, slated for ENT f/u on 09/22/24. - No thrush noted on exam. Per Chen, it is always located on vocal cords and throat. - As stated above, will continue HFA inhaler. Patient continues to brush teeth and rinse mouth out after ICS/LABA use. - Patient previously reported feeling very dismissed by ENT as she feels her symptoms of thrush and frequent strep infections are not taken into consideration. Discussed obtaining a second opinion with ENT. Recommend [facility] Dr. Garcia Alejandre. 09/28/2024 Shortness of breath (ICD-10 - R06.02) Chen reports shortness of breath, cough and wheezing for years, though reports overall improvement since Wixela was initiated, specifically after exercising. Previously started Breo, but switched to Wixela by [facility]. Last spirometry showed normal FVC, FEV1, FEV1%. FVL shows blunted PEFR and inspiratory blunting and flattening. Compared to prior spirometry, FVC increased by 230cc, representing a 7% change. Not consistent with ATS-defined criteria for asthma, but demonstrates reversibility, highly suggestive of RAD. Normal lung age. No interval cough, wheezing or SOB. -Last spirometry today showed normal FVC, FEV1, FEV%. FVL shows scalloping on end-exhalation and inspiratory blunting. Normal lung age. -Given historical thrush in throat, will continue generic high dose Advair HFA. Encouraged to use spacer with administration. Reinforced to brush teeth after inhalation. -Continue albuterol 2-4 puffs PRN with spacer. Continue prophylactic use of albuterol 5-10 minutes prior to exercise. -AAP reviewed. -Follow-up in 3-4 months for E&M 11/10/2024 Shortness of breath (ICD-10 - R06.02) Chen reports shortness of breath, cough and wheezing for years, though reports overall improvement since Wixela was initiated, specifically after exercising. Previously started Breo, but switched to Wixela by [facility]. Last spirometry showed normal FVC, FEV1, FEV1%. FVL shows blunted PEFR and inspiratory blunting and flattening. Compared to prior spirometry, FVC increased by 230cc, representing a 7% change. Not consistent with ATS-defined criteria for asthma, but demonstrates reversibility, highly suggestive of RAD. Normal lung age. No interval cough, wheezing or SOB. -Last spirometry showed normal FVC, FEV1, FEV%. FVL shows scalloping on end-exhalation and inspiratory blunting. Normal lung age. -Given historical thrush in throat, will continue generic high dose Advair HFA. Encouraged to use spacer with administration. Reinforced to brush teeth after inhalation. -Continue albuterol 2-4 puffs PRN with spacer. Continue prophylactic use of albuterol 5-10 minutes prior to exercise. -AAP reviewed. -Follow-up in 3-4 months for E&M 02/21/2025 Shortness of breath (ICD-10 - R06.02) Chen reports shortness of breath, cough and wheezing for years, though reports overall improvement since Wixela was initiated, specifically after exercising. Previously started Breo, but switched to Wixela by [facility]. Last spirometry showed normal FVC, FEV1, FEV1%. FVL shows blunted PEFR and inspiratory blunting and flattening. Compared to prior spirometry, FVC increased by 230cc, representing a 7% change. Not consistent with ATS-defined criteria for asthma, but demonstrates reversibility, highly suggestive of RAD. Normal lung age. No interval cough, wheezing or SOB. -Last spirometry showed normal FVC, FEV1, FEV%. FVL shows scalloping on end-exhalation and inspiratory blunting. Normal lung age. -Given historical thrush in throat, will continue generic high dose Advair HFA. Encouraged to use spacer with administration. Reinforced to brush teeth after inhalation. -Continue albuterol 2-4 puffs PRN with spacer. Continue prophylactic use of albuterol 5-10 minutes prior to exercise. -AAP reviewed. -Follow-up in 3-4 months for E&M 08/17/2025 Allergic rhinitis due to pollen (ICD-10 - J30.1) Chen clearly suffers from atopic disease based upon our skin testing and history. Accordingly, we have encouraged her medication regimen, discussed nasal washes and allergy-specific avoidance measures. She is tolerating SCIT. Previously reporting occasional large, local reactions despite triple premedication. She treats wtih additional antihistamines, TAC and ice with resolution of symptoms. This occurs at random. - Dosing tolerated today without local or systemic reaction. - Continue medication regimen as listed above. Recommend decreasing Flonase to one spray each nostril daily. Proper demonstration given. - Continue triple premedication. Continue additional antihistamines, TAC and ice for large,local reactions. Encouraged to take pictures and notify office if any further LLR occur. - Follow-up as scheduled for SCIT and 6 months further evaluation and management 08/17/2025 Allergic rhinitis due to animal (cat) (dog) hair and dander (ICD-10 - J30.81) Follow allergen avoidance, meds and continue SCIT as an adjunctive treatment to current regimen 02/21/2025 Wheezing (ICD-10 - R06.2) See plan above 11/10/2024 Wheezing (ICD-10 - R06.2) See plan above 09/28/2024 Wheezing (ICD-10 - R06.2) See plan above 09/07/2024 Other chronic sinusitis (ICD-10 - J32.8) Patient reports 2 to 3 ear and sinus infections leading to bronchitis per year, requiring antibiotics and PO steroids. Given recurrent infections, she met the [facility] criteria for modified PIDD workup. She has a history of sinus surgery in 01/2012. Modified PIDD workup showed inadequate s.pneumo (03/01) and Hib protection. Boosters received on 08/26/23. Repeat titers showed adequate s. pneumo () and Hib protection increased from <0.15 to 0.8. She received a second Hib booster on 12/14/23. Repeat titers show now adequate protection. - Reported ear infection in 06/2024 after Covid-19 and strep infection, treated with Amoxillicin, Levaquin and OCS. Consider repeat PIDD workup for additional infections. Will continue to monitor closely. 09/07/2024 Other diseases of vocal cords (ICD-10 - J38.3) Based on history and spirometry, results c/w VCD. Educational handout with exercises for VCD given at prior visit. -Use WILLIAM as needed. -Currently managed by [facility] at [facility] for V[facility]. 09/28/2024 Chronic cough (ICD-10 - R05.3) See plan above 11/10/2024 Chronic cough (ICD-10 - R05.3) See plan above 02/21/2025 Chronic cough (ICD-10 - R05.3) See plan above 08/17/2025 Other allergic rhinitis (ICD-10 - J30.89) Follow allergen avoidance, meds and continue SCIT as an adjunctive treatment to current regimen 08/17/2025 Other chronic allergic conjunctivitis (ICD-10 - H10.45) Given ocular signs and symptoms I encouraged allergy avoidance measures and meds as above. If symptoms persist, consider adding additional medications including intraocular antihistamine/mast cell stabilizer, PRN and continue SCIT as an adjunctive measure 02/21/2025 Candidiasis, unspecified (ICD-10 - B37.9) Patient reports thrush in vocal cords and throat, treated by [facility] in 11/2023. Last visit, reported thrush had returned. Of note, she was prescribed Amoxicillin and Levaquin in addition to OCS for strep throat and ear infection in 07/2024. Also had Covid-19 at end of 06/2024. Completed fluconazole x 14 days, slated for ENT f/u in 12/2024. - No thrush noted on exam. Per Chen, it is always located on vocal cords and throat. - As stated above, will continue HFA inhaler. Patient continues to brush teeth and rinse mouth out after ICS/LABA use. - Patient previously reported feeling very dismissed by ENT as she feels her symptoms of thrush and frequent strep infections are not taken into consideration. Discussed obtaining a second opinion with ENT, which Chen is now slated for 11/10/2024 Candidiasis, unspecified (ICD-10 - B37.9) Patient reports thrush in vocal cords and throat, treated by [facility] in 11/2023. Last visit, reported thrush had returned. Of note, she was prescribed Amoxicillin and Levaquin in addition to OCS for strep throat and ear infection in 07/2024. Also had Covid-19 at end of 06/2024. Completed fluconazole x 14 days, slated for ENT f/u in 12/2024. - No thrush noted on exam. Per Chen, it is always located on vocal cords and throat. - As stated above, will continue HFA inhaler. Patient continues to brush teeth and rinse mouth out after ICS/LABA use. - Patient previously reported feeling very dismissed by ENT as she feels her symptoms of thrush and frequent strep infections are not taken into consideration. Discussed obtaining a second opinion with ENT. Recommend [facility] Dr. Garcia Alejandre. 09/28/2024 Candidiasis, unspecified (ICD-10 - B37.9) Patient reports thrush in vocal cords and throat, treated by [facility] in 11/2023. Last visit, reported thrush had returned. Of note, she was prescribed Amoxicillin and Levaquin in addition to OCS for strep throat and ear infection in 07/2024. Also had Covid-19 at end of 06/2024. Completed fluconazole x 14 days, slated for ENT f/u on 09/22/24. - No thrush noted on exam. Per Chen, it is always located on vocal cords and throat. - As stated above, will continue HFA inhaler. Patient continues to brush teeth and rinse mouth out after ICS/LABA use. - Patient previously reported feeling very dismissed by ENT as she feels her symptoms of thrush and frequent strep infections are not taken into consideration. Discussed obtaining a second opinion with ENT. Recommend [facility] Dr. Garcia Alejandre. 09/07/2024 Rash and other nonspecific skin eruption (ICD-10 - R21) Chen reports itching with certain earrings. She also had facial reconstruction due to injury with horse in 2013. She felt her face was still inflamed and swollen. Patch testing with Met-1000 showed positive to Titanium(III)oxalat e decahydrate. - Per Chen, plates were removed on 02/25/24 and she feels so much better. She was treated with Augmentin and OCS post-op. 09/28/2024 Other chronic sinusitis (ICD-10 - J32.8) Patient reports 2 to 3 ear and sinus infections leading to bronchitis per year, requiring antibiotics and PO steroids. Given recurrent infections, she met the [facility] criteria for modified PIDD workup. She has a history of sinus surgery in 01/2012. Modified PIDD workup showed inadequate s.pneumo (03/01) and Hib protection. Boosters received on 08/26/23. Repeat titers showed adequate s. pneumo () and Hib protection increased from <0.15 to 0.8. She received a second Hib booster on 12/14/23. Repeat titers show now adequate protection. - Reported ear infection in 06/2024 after Covid-19 and strep infection, treated with Amoxillicin, Levaquin and OCS. Consider repeat PIDD workup for additional infections. Will continue to monitor closely. 09/07/2024 Adverse effect of cephalosporins and other beta-lactam antibiotics, subsequent encounter (ICD-10 - T36.1X5D) Omnicef resulted throat swelling but does not remember how it was treated. -Consider BHRT testing 11/10/2024 Other chronic sinusitis (ICD-10 - J32.8) Patient reports 2 to 3 ear and sinus infections leading to bronchitis per year, requiring antibiotics and PO steroids. Given recurrent infections, she met the [facility] criteria for modified PIDD workup. She has a history of sinus surgery in 01/2012. Modified PIDD workup showed inadequate s.pneumo (03/01) and Hib protection. Boosters received on 08/26/23. Repeat titers showed adequate s. pneumo () and Hib protection increased from <0.15 to 0.8. She received a second Hib booster on 12/14/23. Repeat titers show now adequate protection. - Reported ear infection in 06/2024 after Covid-19 and strep infection, treated with Amoxillicin, Levaquin and OCS. Consider repeat PIDD workup for additional infections. Will continue to monitor closely. 02/21/2025 Other chronic sinusitis (ICD-10 - J32.8) Patient reports 2 to 3 ear and sinus infections leading to bronchitis per year, requiring antibiotics and PO steroids. Given recurrent infections, she met the [facility] criteria for modified PIDD workup. She has a history of sinus surgery in 01/2012. Modified PIDD workup showed inadequate s.pneumo (03/01) and Hib protection. Boosters received on 08/26/23. Repeat titers showed adequate s. pneumo () and Hib protection increased from <0.15 to 0.8. She received a second Hib booster on 12/14/23. Repeat titers show now adequate protection. - Reported ear infection in 06/2024 after Covid-19 and strep infection, treated with Amoxillicin, Levaquin and OCS. Consider repeat PIDD workup for additional infections. Will continue to monitor closely. 08/17/2025 Other chronic sinusitis (ICD-10 - J32.8) Patient reported 2 to 3 ear and sinus infections leading to bronchitis per year, requiring antibiotics and PO steroids. Given recurrent infections, she met the [facility] criteria for modified PIDD workup. She has a history of sinus surgery in 01/2012. Modified PIDD workup showed inadequate s.pneumo (03/01) and Hib protection. Boosters received on 08/26/23. Repeat titers showed adequate s. pneumo () and Hib protection increased from <0.15 to 0.8. She received a second Hib booster on 12/14/23. Repeat titers show now adequate protection. - Reported ear infection in 06/2024 after Covid-19 and strep infection, treated with Amoxillicin, Levaquin and OCS. Consider repeat PIDD workup for additional infections. Will continue to monitor closely. 08/17/2025 Other diseases of vocal cords (ICD-10 - J38.3) Based on history and spirometry, results c/w VCD. Educational handout with exercises for VCD given at prior visit. -Use WILLIAM as needed. -Currently managed by [facility] for [facility]. 02/21/2025 Other diseases of vocal cords (ICD-10 - J38.3) Based on history and spirometry, results c/w VCD. Educational handout with exercises for VCD given at prior visit. -Use WILLIAM as needed. -Currently managed by [facility]NT at [facility] for VCD. 11/10/2024 Other diseases of vocal cords (ICD-10 - J38.3) Based on history and spirometry, results c/w VCD. Educational handout with exercises for VCD given at prior visit. -Use WILLIAM as needed. -Currently managed by [facility]NT at [facility] for [facility]. 09/07/2024 Adverse effect of other drugs, medicaments and biological substances, subsequent encounter (ICD-10 - T50.995D) Vancomycin resulted in full body rash and Flagyl cause stomach pains. -Consider BHRT testing in future 09/28/2024 Other diseases of vocal cords (ICD-10 - J38.3) Based on history and spirometry, results c/w VCD. Educational handout with exercises for VCD given at prior visit. -Use WILLIAM as needed. -Currently managed by [facility]NT [facility] for [facility]. 09/28/2024 Rash and other nonspecific skin eruption (ICD-10 - R21) Chen reports itching with certain earrings. She also had facial reconstruction due to injury with horse in 2013. She felt her face was still inflamed and swollen. Patch testing with Met-1000 showed positive to Titanium(III)oxalat e decahydrate. - Per Chen, plates were removed on 02/25/24 and she feels so much better. She was treated with Augmentin and OCS post-op. 11/10/2024 Gastro-esophageal reflux disease without esophagitis (ICD-10 - K21.9) Currently on PPI with no recent GI evaluation in 2-3 years. Strongly encouraged re-evaluation by GI. 02/21/2025 Gastro-esophageal reflux disease without esophagitis (ICD-10 - K21.9) Currently on PPI with no recent GI evaluation in 2-3 years. Strongly encouraged re-evaluation by GI. 08/17/2025 Gastro-esophageal reflux disease without esophagitis (ICD-10 - K21.9) Currently on PPI with no recent GI evaluation in 2-3 years. Strongly encouraged re-evaluation by GI. 08/17/2025 Rash and other nonspecific skin eruption (ICD-10 - R21) Chen reports itching with certain earrings. She also had facial reconstruction due to injury with horse in 2013. She felt her face was still inflamed and swollen. Patch testing with Met-1000 showed positive to Titanium(III)oxalat e decahydrate. - Per Chen, plates were removed on 02/25/24 and she feels so much better. She was treated with Augmentin and OCS post-op. 02/21/2025 Rash and other nonspecific skin eruption (ICD-10 - R21) Chen reports itching with certain earrings. She also had facial reconstruction due to injury with horse in 2013. She felt her face was still inflamed and swollen. Patch testing with Met-1000 showed positive to Titanium(III)oxalat e decahydrate. - Per Chne, plates were removed on 02/25/24 and she feels so much better. She was treated with Augmentin and OCS post-op. 11/10/2024 Rash and other nonspecific skin eruption (ICD-10 - R21) Chen reports itching with certain earrings. She also had facial reconstruction due to injury with horse in 2013. She felt her face was still inflamed and swollen. Patch testing with Met-1000 showed positive to Titanium(III)oxalat e decahydrate. - Per Chen, plates were removed on 02/25/24 and she feels so much better. She was treated with Augmentin and OCS post-op. 09/28/2024 Adverse effect of cephalosporins and other beta-lactam antibiotics, subsequent encounter (ICD-10 - T36.1X5D) Omnicef resulted throat swelling but does not remember how it was treated. -Consider BHRT testing 09/28/2024 Adverse effect of other drugs, medicaments and biological substances, subsequent encounter (ICD-10 - T50.995D) Vancomycin resulted in full body rash and Flagyl cause stomach pains. -Consider BHRT testing in future 11/10/2024 Adverse effect of cephalosporins and other beta-lactam antibiotics, subsequent encounter (ICD-10 - T36.1X5D) Omnicef resulted throat swelling but does not remember how it was treated. -Consider BHRT testing 02/21/2025 Adverse effect of cephalosporins and other beta-lactam antibiotics, subsequent encounter (ICD-10 - T36.1X5D) Omnicef resulted throat swelling but does not remember how it was treated. - Consider BHRT testing, which we discussed today as Chen's PCP feels limited in available antibiotics 08/17/2025 Adverse effect of cephalosporins and other beta-lactam antibiotics, subsequent encounter (ICD-10 - T36.1X5D) Omnicef resulted throat swelling but does not remember how it was treated. - Consider BHRT testing, which we discussed today as Chen's PCP feels limited in available antibiotics 08/17/2025 Adverse effect of other drugs, medicaments and biological substances, subsequent encounter (ICD-10 - T50.995D) Vancomycin resulted in full body rash and Flagyl cause stomach pains. - Continue avoidance at this time. 02/21/2025 Adverse effect of other drugs, medicaments and biological substances, subsequent encounter (ICD-10 - T50.995D) Vancomycin resulted in full body rash and Flagyl cause stomach pains. - Continue avoidance at this time. 11/10/2024 Adverse effect of other drugs, medicaments and biological substances, subsequent encounter (ICD-10 - T50.995D) Vancomycin resulted in full body rash and Flagyl cause stomach pains. -Continue avoidance at this time. 08/17/2025 Elevated blood-pressure reading, without diagnosis of hypertension (ICD-10 - R03.0) BP elevated today without symptoms of urgency or emergency. Continue serial checks and follow-up with PCP 02/21/2025 Other 09/07/2024 Other 11/10/2024 Other 09/28/2024 Other 08/17/2025 Other Plan Of Treatment Next Appt Details Provider Name:Emery Paulino , 09/13/2025 10:50:00 AM, [address] [facility], [address], [address], Provider Name:Emery Paulino , 10/17/2025 02:30:00 PM, [address] [facility], [facility] [address], [place], [address], Provider Name:Emery Paulino , 11/15/2025 10:30:00 AM, [address] [facility], [facility] [address], [place], [address], Insurance Providers Payer Name Payer Address Payer Phone Subscriber Number Group Number Insured Name Patient Relationship to Insured Coverage Start Date Coverage End Date [facility] [address] [place] [id number] Chen Coats Self - patient is the insured Medical (General) History Medical History History ICD Code migraines Surgical History Surgery Date(Month/Year) wisdom teeth [address] 2010 left knee surgery rhinoplasty 2012 laposcropic 2012 facial reconstruction 2014 right hip surgery 2018 right hand reconstructed x2 2019 endo ablation 2020 titanium removal 2023 Hospitalization History Reason Date(Month/Year) facial reconstruction 2013
--- OUTSIDE RECORDS SUMMARY | 2025-08-24 17:39 | XMS_ITS | Clinical Summary ---
Author Organization [facility] Address [address] [place] [address] Phone Care Team Providers Care Automobile Body Repairer Name Role Phone Jonathan Alejandra MD Primary Care Provider [phone] Allergies Active Allergy Reactions Criticality Noted Date [...] Problem Noted Date Diagnosed Date Eczema 09/20/2024 Social History Tobacco Use Types Packs/Day Years [...] 2012 Discussion re Starting/Frequency of Mammograms 2022 Influenza Immunization (#1) 07/10/202511/2019, 08/09/2019, 08/09/2018, Additional history exists SARS-COV-2 Immunization ( season) 2025 06/26/2021, 06/05/2021 Respiratory Syncytial Virus (RSV) Immunization (Adult) (1 - 1-dose 75+ series) 2057 Meningococcal Immunization (ACWY) Aged Out 08/20/2001 No longer eligible based on patient's age to complete this topic Human Papillomavirus (HPV) Immunization Completed 08/25/2007, 04/20/2007, 02/23/2007 Hepatitis B Immunization Completed 014, 04/04/2014, 03/03/2014 [...] patient's age to complete this topic Insurance [facility] Care Teams Automobile Body Repairer Relationship Specialty Start Date End Date Jonathan Alejandra MD [address] [phone] PCP - General Internal Medicine 08/24/21
== END 2025-08-24 15:38 | disposition home or self-care (01) ==
LOC: CHSIMG 15:39
PROVIDERS: PCP Internal Medicine; Visit Provider Internal Medicine
DX: M79.672 Pain in left foot (principal); M79.671 Pain in right foot
CPT/HCPCS: 73630